=== PATIENT | male | born 1955 | race African-American/Black ===

== ENCOUNTER 2020-05-23 13:40 | Observation (INO) | payer MEDICARE, OTHER ==
[2020-05-18 13:25] LABS: BASOPHILS % 0.1 % (0.0-1.0); EOSINOPHILS % 0.2 % (0.0-6.0); HEMATOCRIT 42.2 % (38.2-49.6); HEMOGLOBIN 13.4 g/dL (14.0-18.0); LYMPHOCYTES # (AUTO) 1.1 (1.0-3.2); LYMPHOCYTES % 12.9 % (18.0-39.1); MEAN CORPUSCULAR HEMOGLOBIN 30.8 pg (28-32); MEAN CORPUSCULAR HGB CONC 31.8 g/dL (31-35); MONOCYTES # (AUTO) 0.2 (0.2-0.8); MONOCYTES % 2.2 % (4.4-11.3); NEUTROPHILS # (AUTO) 7.3 (2.1-6.9); NEUTROPHILS % 83.6 % (38.7-80.0); PLATELET COUNT 233 x10e3/uL (140-360); RED BLOOD COUNT 4.35 x10e6/uL (4.3-5.7); RED CELL DISTRIBUTION WIDTH 14.8 % (11.7-14.4)
[2020-05-18 13:49] LABS: ALBUMIN/GLOBULIN RATIO 1.3 (0.8-2.0); ANION GAP 17.3 mmol/L (8-16); CALCIUM 9.6 mg/dL (8.4-10.2); CREATININE, SERUM 1.44 mg/dL (0.72-1.25); POTASSIUM 4.3 mmol/L (3.5-5.1)
--- NOTE | 2020-05-22 09:25 | NUR ---
Followed up with Lab regarding pending COVID test results. physics technician stated results for COVID test are still pending. physics technician stated results will most likely be back "later on today or tomorrow".
[2020-05-23] VITALS (27 sets, daily range): BP systolic 115–185; BP diastolic 61–110
[~2020-05-23] VITALS: Ht 157.5 cm; Wt 53.5 kg
[~2020-05-23 13:40] MED LIST: ASPIR 8181 MG PO; ATORVASTATIN CA20 MG PO; CARVEDILOL12.5 MG PO; CLOPIDOGREL75 MG PO; DIPHENHYDRAMINE25 M1 PO; FAMOTIDINE20 MG PO; FINASTERIDE5 MG PO; FLOMAX0.4 MG PO; GABAPENTIN300 MG PO; IPRAT-ALBUT 0.5-3 ML NEB; MYRBETRIQ50 MG PO; PREDNISONE20 MG PO; PROVENTIL HFA6.7 GM INH; TRELEGY ELLIPT1 EACH INH; ULTRAM50 MG PO
[2020-05-23] MEDS ORDERED: METHYLPREDNISOLONE SOD SUCC 125 MG/2ML VIAL ONE (13:56)
[2020-05-23] MEDS ORDERED: FAMOTIDINE 20 MG/2 ML VIAL IV ONE (13:57)
[2020-05-23] MEDS ORDERED: DIPHENHYDRAMINE HCL 25 MG CAP ONE (13:57)
[2020-05-23] MEDS ORDERED: ALPRAZOLAM 0.5 MG TAB ONE (13:57)
[2020-05-23] MEDS ORDERED: MIDAZOLAM HCL 2 MG/2 ML VIAL ONE ×2 (14:18→14:52)
[2020-05-23] MEDS ORDERED: FENTANYL CITRATE/PF 100MCG/2 ML INJ ONE (14:19)
[2020-05-23] MEDS ORDERED: LIDOCAINE HCL 2% LOCAL 20 ML VIAL ONE (14:19)
[2020-05-23] MEDS ORDERED: SODIUM CHLORIDE 0.9% 1000ML 1,000 ML ONE (14:19)
[2020-05-23] MEDS ORDERED: HEPARIN SOD/SOD CHLORIDE 2,000 ML ONE (14:19)
[2020-05-23] MEDS ORDERED: VERAPAMIL HCL 2.5 MG/ML 2 ML VIAL ONE (14:36)
[2020-05-23] MEDS ORDERED: PRASUGREL 10 MG TAB ONE (15:01)
[2020-05-23] MEDS ORDERED: BIVALRIUDIN 250 MG/VIAL VIAL IV ONE (15:01)
[2020-05-23] MEDS ORDERED: SODIUM CHLORIDE 0.9% 50ML 50 ML ONE (15:02)
[2020-05-23] MEDS ORDERED: ASPIRIN 325 MG TAB ONE (15:02)
--- NOTE | 2020-05-23 15:15 | NUR ---
Pt to ACU 8 for recovery, resting with eyes closed, and on bedside monitor. bed low and locked with siderails up x2. call light within reach. VS wnl.
--- NOTE | 2020-05-23 16:30 | NUR ---
pt moved to CCL 10 for further recovery. no changes or distress observed. vs wnl. groin w/o complications.
--- NOTE | 2020-05-23 16:45 | NUR ---
report handoff to Amelie DAILEY. Review of pending sheath pull and VS trend. Transfer of care.
--- NOTE | 2020-05-23 18:10 | NUR ---
Dr Benavides aware of trending BP and pt c/o of distention to void. IN/Out cath order received. - 800clear yellow urine evacuated.
--- NOTE | 2020-05-23 18:20 | NUR ---
Hydralazine 20mg given slow IVP for BP > 180 per orders prior to sheath pull.
--- NOTE | 2020-05-23 18:30 | NUR ---
Report received from Amelie Gilbert RN. pt in CCL 10, Alert oriented and appropriate, PERRLA, respirations even and unlabored to room air. Assisted with in and out pickard. Sheath in right groin w/o s/s of complication/hematoma. Skin warm and dry integrity appears intact in general. IV left forearm presents healthy w/o s/s of infiltration or complaint. NS 0.9% at 100ml/hr per [place] pump. Abdomen soft and supple. pt offered toileting, denies need. Personal affects with patient. Family notified of DC time of 10pm. Pt verbalizes understanding of POC. bed low and locked, side rails up x2 and call light at side. -cgf
[2020-05-23] MEDS ORDERED: HYDRALAZINE HCL 20 MG/ML VIAL ONE (18:46)
--- NOTE | 2020-05-23 18:50 | NUR ---
BP within paramater for sheath pull. Sheath liberated from right groin by Abraham Zhang RtR. Manual compressor applied. Pulses present. Pt understanding bedrest and right groin guarding. VS trend followed. Pt w/o c/o or need.
--- NOTE | 2020-05-23 19:20 | NUR ---
Sheath pull /pressure complete. Dressing applied. Right leg warm, no s/s of gross issue or need. Pulse present. Dressing CDI/ Pt aware of bedrest. Daughter called with permission and informed anticipated DC time of 945pm. call light at side.
--- NOTE | 2020-05-23 20:00 | NUR ---
evening meal provided. pt HOB elevated to 15o. tolerating PO w/o distress. groin unchanged. POC reinforced. BP trend WNL
--- NOTE | 2020-05-23 21:00 | NUR ---
Dr Benavides made aware of above assessment. Orders received.
--- NOTE | 2020-05-23 21:00 | NUR ---
pt c/o of heaviness of right foot and coolness. right leg and groin feels consistently warm. femoral pulse palpable. Popliteal pulse palpable. negative pain through calf. right foot with poor blanching of toe pads and unable to doppler pulses. p/t beginning to c/o progressive pain up the leg. stating " my foot feels , and the pain is coming up my leg." Dr Kennedy gonzalez.
--- NOTE | 2020-05-23 21:29 | NUR ---
Report called to Cynthia DAILEY. Reviewed procedural events and current assessment change. Brief history and POC reviewed. Patient family has already been informed. pedal pulses absent, palpable r poltieal and rfemoral. pt transported on telemetry w/ belongings
--- NOTE | 2020-05-23 21:55 | NUR ---
RECEIVED THE PATIENT FROM HEART CATH IN A STRETCHER.ADMISSION ASSESSMENT DONE.AAOX4.BED REST TILL AM.RIGHT POPLITEAL PULSE NOTED.BUT NO RIGHT PEDAL PULSE NOTED.UPON ASSESSMENT RIGHT LEG FEEL COLD.IV TO LEFT FOR ARM IS PATENT.ORIENTED TO THE UNIT.BED LOCKED AND IN LOWEST POSITION.PHONE AND CALL LIGHT WITHIN REACH.INSTRUCTED TO CALL FOR ASSISTANCE NEEDED.ENTER ALL ORDERS AND IMPLEMENTED.KEEP MONITOR THE PATIENT.
--- NOTE | 2020-05-23 22:41 | Operative Report ---
DATE OF PROCEDURE: 05/23/2020 SURGEON: Nathan Benavides MD CARDIAC TECHNOLOGY SALES CONSULTANT PROCEDURE NOTE INDICATION: Coronary artery disease, angina with abnormal stress test. PROCEDURES PERFORMED: 1. Conscious sedation, 65 minutes. 2. Left heart catheterization, selective coronary angiography. 3. PTCA and stent placed in the proximal right coronary artery. 4. Selective cannulation of one venous bypass conduit. 5. Manual removal of the sheath from the right groin. COMPLICATIONS: None. RECOMMENDATIONS: Dual antiplatelet therapy for life. DESCRIPTION OF PROCEDURE: Access was obtained in the right femoral artery graft, 6-Emirati sheath was placed. 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 Therefore, the sheath was removed under manual pressure at the end of the case. Left main, mild disease. Left anterior descending artery is completely occluded. His ramus intermedius, circumflex, and obtuse marginal branches had mild disease. Right coronary artery proximal stent had 80% in-stent restenosis. Saphenous vein bypass graft to left anterior descending artery at 50% mid stenosis. Left internal mammary artery was then used. A decision was made to intervene on the right coronary artery. The patient received intravenous Angiomax, oral aspirin, prasugrel for anticoagulation. The right coronary artery was cannulated using a 3DRC 6-Emirati guiding catheter. A short Runthrough wire was advanced for support. Predilatation with 2 mm balloon following, which a single 2.75 x 16 mm [employer] Synergy stent was deployed at 16 atmospheres. Post stent with a 3.25 mm balloon at 14-20 atmospheres with excellent end result, less than 10% residual stenosis, TAL-3 flow. No complications. Sheath was removed under manual pressure. The patient discharged home same day. Nathan Benavides MD KSJack/MODL /[id number]
[2020-05-23] MEDS ORDERED: HYDRALAZINE HCL 20 MG/ML VIAL IV PRN (22:45)
[2020-05-23] MEDS ORDERED: ALBUTEROL SULFATE HFA 8GM INHALATION AEROSOL INH PRN (23:45)
[2020-05-23] MEDS ORDERED: ENOXAPARIN SOD INJ 40 MG/0.4 ML SYR SC ONE (23:45)
[2020-05-24] MEDS: MORPHINE SULFATE 2 MG/ML SYR 1ML IV PRN ×2 (00:03→06:40)
[2020-05-24] MEDS: SODIUM CHLORIDE 0.9% 1000ML 1,000 ML IV SCH ×2 (00:03→08:45)
--- NOTE | 2020-05-24 00:34 | NUR ---
NOTIFIED RESPIRATORY ABOUT THE NEED OF BREATHING TREATMENT.
[2020-05-24] MEDS: ALBUTEROL/IPRATROPIUM 3 ML NEB NEB SCH ×2 (00:40→08:10)
--- NOTE | 2020-05-24 04:30 | NUR ---
Right posterior tibial pulse noted.dressing to right groin is dry .
[2020-05-24 04:35] VITALS: BP 141/83
--- NOTE | 2020-05-24 06:52 | NUR ---
RECEIVED BEDSIDE SHIFT REPORT FROM OFF GOING NURSE. PATIENT IS RESTING IN BED. NO ACUTE DISTRESS NOTED. CALL LIGHT WITHIN REACH. BED IN THE LOWEST POSITION. BED ALARM ON.
--- NOTE | 2020-05-24 07:00 | NUR ---
Bed side shift report given to oncoming Rn.stable condition.
[2020-05-24 07:47] VITALS: BP 166/84
[2020-05-24] MEDS ORDERED: CARVEDILOL 12.5 MG TAB PO SCH (09:00)
[2020-05-24] MEDS ORDERED: ASPIRIN 81 MG CHEW TAB PO SCH (09:00)
[2020-05-24] MEDS ORDERED: TAMSULOSIN HCL 0.4 MG CAP PO SCH ×2 (09:00→21:00)
[2020-05-24] MEDS ORDERED: FINASTERIDE 5 MG TAB PO SCH (09:00)
[2020-05-24] MEDS ORDERED: DIPHENHYDRAMINE HCL 25 MG CAP PO SCH (09:00)
[2020-05-24] MEDS ORDERED: ALBUTEROL/IPRATROPIUM 3 ML NEB NEB SCH (09:00)
[2020-05-24] MEDS ORDERED: GABAPENTIN 300 MG CAP PO SCH (09:00)
[2020-05-24] MEDS ORDERED: CLOPIDOGREL BISULFATE 75 MG TAB PO SCH (09:00)
[2020-05-24] MEDS ORDERED: PREDNISONE 20 MG TAB PO SCH (09:00)
[2020-05-24] MEDS ORDERED: FAMOTIDINE 20 MG TAB PO SCH (09:00)
--- NOTE | 2020-05-24 10:50 | NUR ---
DR. Yakov QUINTERO IN TO SEE PATIENT, NOTIFIED THAT NEEDED DOPPLER TO FIND POST. TIBIALIS PULSE.
--- NOTE | 2020-05-24 12:00 | NUR ---
RECEIVED DISCHARGE ORDER FROM DR. Yakov QUINTERO, PATIENT IS IN STABLE CONDITION. IV LINE TO LEFT FOREARM DISCONTINUED WITH TIP INTACT, PRESSURE APPLIED TO SITE, NO BLEEDING NOTED. DISCHARGE TEACHING PROVIDED TO PATIENT, HE VERBALIZED UNDERSTANDING. DISCHARGE FOLDER ON HAND, NO NEW PRESCRIPTIONS, ALL PERSONAL ITEMS ON HAND. PATIENT ACCOMPANIED TO PRIVATE AUTO VIA WHEELCHAIR BY STAFF.
[2020-05-24] MEDS ORDERED: ATORVASTATIN 20 MG TAB PO SCH (21:00)
--- OUTSIDE RECORDS SUMMARY | 2020-06-23 04:00 | XMS REPORT | Encounter Summary ---
Author Organization Unknown Address [address] [place] [address] Phone [phone] Care Team Providers Care Cupola Melting Supervisor Name Role Phone Dr. Surendra Chambers 3 [phone] Surendra Chambers Jr, MD 3 [phone] Nida Long MD 114 [phone] Nicholas Bradshaw MD (Cardiothoracic & Vascular Surgery) 122 [phone] Reason for Visit chest pain; cough Instructions 1. Chronic obstructive lung disease ipratropium-albuterol 0.5 mg-3 mg(2.5 mg base)/3 mL nebulization soln nebulizer w/mouthpiece adult 2. Upper respiratory infection XR, chest, 2 view 3. Pleuritic pain 4. Seasonal allergy triamcinolone acetonide 40 mg/mL suspe nsion for injection dexamethasone 4 mg/mL injection soluti on 5. Nicotine dependence stopping smoking: care instructions advised to quit smoking deciding about using medicines to quit smoking 6. Hip pain XR, hip, unilateral, 2 or 3 view Discussion Note: None recorded. Plan of Care Reminders Provider Appointments Est Patient 03/15/2019 10:00AM Surendra cornejo Jr, MD Est Patient 03/29/2019 9:00AM Surendra le Jr, MD Lab None recorded. Referral None recorded. Procedures None recorded. Surgeries None recorded. Imaging XR, Chest, 2 View 03/02/2019 [facility] Hobby XR, Hip, Unilateral, 2 or 3 View 03/02/2019 Medications Name Start Date aspirin 81 mg chewable tablet Chew 1 tablet every day by oral route for 90 days. atorvastatin calcium 20 mg tabs bisacodyl 5 mg tablet,delayed release Take 1 tablet every day by oral route. Breo Ellipta 100 mcg-25 mcg/dose powder for inhalation Inhale 1 inhalation every day by inhalation route. carvedilol 12.5 mg tablet TAKE ONE TABLET BY MOUTH TWICE A DAY cetirizine 10 mg tablet TAKE ONE TABLET BY MOUTH DAILY NEEDED FOR ALLERGIES clopidogrel 75 mg tablet TAKE ONE TABLET BY MOUTH DAILY famotidine 40 mg tablet TAKE ONE TABLET BY MOUTH DAILY finasteride 5 mg tablet TAKE 1 TABLET BY MOUTH DAILY gabapentin 300 mg capsule Take 2 capsules 3 times a day by oral route for 90 days. ipratropium-albuterol 0.5 mg-3 mg(2.5 mg base)/3 mL nebulization soln Inhale 3 mL 4 times a day by nebulization route for 90 days. Lipitor 20 mg tablet Take 1 tablet every day by oral route. Myrbetriq 50 mg tablet,extended release Take 1 tablet every day by oral route for 90 days. ProAir HFA 90 mcg/actuation aerosol inha ler Inhale 2 puffs every 4 hours by inhalation route for 90 days. tamsulosin 0.4 mg capsule Take 1 capsule every day by oral route for 90 days. Medications Administered None recorded. Vitals Height Weight BMI Blood Pressure 5 ft 2 in 116 lbs 21.2 kg/m2 130/76 mm[Hg] Lab Results None recorded. Allergies Code Code System Name Reaction Severity Status Onset Blue Dye Itching Moderate to Severe Active 110169 RxNorm Demerol Active 5933 RxNorm Iodine Active Problems Name Status Onset Date Source Coronary Arteriosclerosis Active 09/11/2017 Peripheral Vascular Disease Active 09/11/2017 Chronic Obstructive Lung Disease Active 09/11/2017 Chronic Kidney Disease Stage 3 Active 09/11/2017 Benign Prostatic Hypertrophy without Outflow Obstruction Active 09/11/2017 Cigarette Smoker Active 09/11/2017 Amputated above Knee Active 09/11/2017 Gastroesophageal Reflux Disease Active 09/18/2017 Benign Hypertensive Heart Disease and Chronic Renal Disease Acti ve 12/22/2017 Femoral Artery Occlusion Active 02/23/2018 History of Coronary Artery Bypass Grafting Active 02/23 Long-term Current Use of Anticoagulant Active 8 Anemia Active 06/29/2018 Left Ventricular Hypertrophy Active 07/30/2018 Atherosclerosis of Aorta Active Externa l Intermittent Claudication Active 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 [address] [place] [address] (Work Place) 03/02/2019 XR, Hip, Unilateral, 2 or 3 View Informa tion not available Vaccine List Vaccine Type Influenza, injectable, MDCK, quadrivalen t 10/10/20170.5 mL influenza, injectable, quadrivalent 08/22/2016 influenza, injectable, quadrivalent, pre servative free 09/28/2018 pneumococcal polysaccharide PPV23 08/10/2012 Social History Smoking Status Light Tobacco Smoker (1/4 PPD) Past Encounters 03/02/2019 Chronic Obstructive Lung Disease; Upper Respiratory Infection; Pleuritic Pain; Seasonal Allergy; Nicotine Dependence; Hip Pain Surendra Chambers Jr, MD: [address] [facility] [facility] [address], [place] [address], Ph. History of Present Illness Upper Respiratory Symptoms Reported By: Patient Chest Pain Reported By: Patient URI - AMS Reported By: Patient Upper Respiratory Symptoms: Onset/Timing: gradual. Dur ation: constant. Location: head, throat. Quality: no sore throat, nasal congestion/discharge, dry cough. Severity: moderate. Context: no sick contacts, no foreign travel. Associated Symptoms: no fever, no chills, no shortness of breath, no wheezing, no significant weight loss, no diarrhea, no nausea Review of Systems Comprehensive General Adult ROS Reported By: Patient Constitutional: Constitutional: no fever, no night sweats, no significant weight loss Eyes: Eyes: no vision change ENMT: Ears: no difficulty hearing, no ear pain. Mouth/Throat: sore throat Cardiovascular: Cardiovascular: no chest young n, no shortness of breath when walking Respiratory: Respiratory: no wheezing, no shortness of breath, cough Gastrointestinal: Gastrointestinal: no nausea, no diarrhea Musculoskeletal: Musculoskeletal: no arthralg ias/joint pain Integumentary: Skin: no rashes Endocrine: Endocrine: fatigue Allergic/Immunologic: Allergy/Immunologic: runny n ose Physical Exam Upper Respiratory Infection Exam Comprehensive, Upper Respiratory Infection Exam, Cardiology Exam Reported By: Patient Constitutional: General Appearance in no acu te distress Head: Sinuses no tenderness Ears: Right External auditory renetta l normal appearance, no erythema. Left External auditory canal normal appearance, no erythema. Right Tympanic membrane dull, bulging. Left Tympanic membrane: dull, bulging Nose: Nasal Skin: no lesion, no la cerations. Nasal Mucosa normal, pink and moist Oral Cavity/Mouth: Oral Mucosa: normal, moist, no lesions. Posterior pharynx: lymphoid hyperplasia (cobblestoning) Lymph Nodes: Cervical no palpable lymph n ode enlargement Neck: Neck symmetrical, trachea mi dline Lungs: Respiratory effort unlabored . Auscultation breath sounds normal, no wheezing, no rales / crackles, no rhonchi Cardiovascular System: Auscultation regular rate an d rhythm, no murmur, no rubs
--- OUTSIDE RECORDS SUMMARY | 2020-06-23 04:00 | XMS REPORT | Encounter Summary ---
Author Organization Unknown Address [address] [place] [address] Phone [phone] Care Team Providers Care Liquor Blender Name Role Phone Dr. Surendra Chambers 3 [phone] Surendra Chambers Jr, MD 3 [phone] Nida Long MD 114 [phone] Nicholas Bradshaw MD (Cardiothoracic & Vascular Surgery) 122 [phone] Reason for Visit hypertension; COPD Follow-up Instructions 1. Benign hypertensive heart disease and chronic renal disease carvedilol 12.5 mg tablet atorvastatin 20 mg tablet CMP, serum or plasma CBC w/ auto diff lipid panel, serum valsartan 80 mg tablet 2. Coronary arteriosclerosis clopidogrel 75 mg tablet 3. Chronic kidney disease stage 3 4. Chronic obstructive lung disease ipratropium-albuterol 0.5 mg-3 mg(2.5 mg base)/3 mL nebulization soln ProAir HFA 90 mcg/actuation aerosol in haler doxycycline hyclate 100 mg tablet prednisone 20 mg tablet COPD Education ([facility]) nebulizer w/mouthpiece adult Breo Ellipta 100 mcg-25 mcg/dose powde r for inhalation 5. Peripheral vascular disease gabapentin 300 mg capsule 6. Benign prostatic hypertrophy without outflow obstruction finasteride 5 mg tablet Myrbetriq 50 mg tablet,extended releas e tamsulosin 0.4 mg capsule 7. Gastroesophageal reflux disease famotidine 40 mg tablet 8. Seasonal allergic rhinitis cetirizine 10 mg tablet 9. Screening for malignant neoplasm of p rostate PSA, serum or plasma 10. Cigarette smoker advised to quit smoking stopping smoking: care instructions deciding about using medicines to quit smoking 11. Inflammation of sacroiliac joint tramadol 50 mg tablet XR, lumbosacral spine, 2 or 3 view Discussion Note: None recorded. Plan of Care Reminders Provider Appointments None recorded. Lab CMP, Serum or Plasma 06/14/2019 [facility] Laboratory CBC W/ Auto Diff 06/14/2019 [facility] Laboratory Lipid Panel, Serum 06/14/2019 [facility] Laboratory PSA, Serum or Plasma 06/14/2019 [facility] Laboratory Referral None recorded. Procedures None recorded. Surgeries None recorded. Imaging XR, Lumbosacral Spine, 2 or 3 View 06/14/2019 [facility] Radiology Medications Name Start Date aspirin 81 mg chewable tablet Chew 1 tablet every day by oral route for 90 days. atorvastatin 20 mg tablet Take 1 tablet every day by oral route. bisacodyl 5 mg tablet,delayed release Take 1 tablet every day by oral route. Breo Ellipta 100 mcg-25 mcg/dose powder for inhalation Inhale 1 inhalation every day by inhalation route for 90 days. carvedilol 12.5 mg tablet Take 1 tablet twice a day by oral route. cetirizine 10 mg tablet Take 1 tablet every day by oral route. clopidogrel 75 mg tablet Take 1 tablet every day by oral route. doxycycline hyclate 100 mg tablet Take 1 tablet twice a day by oral route for 10 days. famotidine 40 mg tablet Take 1 tablet every day by oral route. finasteride 5 mg tablet Take 1 tablet every day by oral route. gabapentin 300 mg capsule Take 2 capsules 3 times a day by oral route for 90 days. ipratropium-albuterol 0.5 mg-3 mg(2.5 mg base)/3 mL nebulization soln Inhale 3 mL 4 times a day by nebulization route for 90 days. Myrbetriq 50 mg tablet,extended release Take 1 tablet every day by oral route. prednisone 20 mg tablet Take 2 tablets every day by oral route in the morning for 10 days. ProAir HFA 90 mcg/actuation aerosol inha ler Inhale 2 puffs every 4 hours by inhalation route for 90 days. tamsulosin 0.4 mg capsule Take 1 capsule every day by oral route. tramadol 50 mg tablet Take 1 tablet twice a day by oral route as needed. valsartan 80 mg tablet Take 1 tablet every day by oral route for 90 days. Medications Administered None recorded. Vitals Height Weight BMI Blood Pressure 5 ft 2 in 111.2 lbs 20.3 kg/m2 (1) 156/90 mm[H g] (2) 152/88 mm[Hg] Lab Results None recorded. 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 al 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 External Procedures Date Name Performed by Amputation Information not avai lable Colonoscopy Information not avai lable 06/14/2019 XR, Lumbosacral Spine, 2 or 3 View [facility] [address] [place] [address] (Work Place) Vaccine List Vaccine Type Influenza, injectable, MDCK, quadrivalen t 10/10/20170.5 mL influenza, injectable, quadrivalent 08/22/2016 influenza, injectable, quadrivalent, pre servative free 09/28/2018 pneumococcal polysaccharide PPV23 08/10/2012 Social History Smoking Status Light Tobacco Smoker (1/4 PPD) Past Encounters 06/14/2019 Benign Hypertensive Heart Disease and Chronic Renal Disease; Coronary Arteriosclerosis; Chronic Kidney Disease Stage 3; Chronic Obstructive Lung Disease; Peripheral Vascular Disease; Benign Prostatic Hypertrophy without Outflow Obstruction; Gastroesophageal Reflux Disease; Seasonal Allergic Rhinitis; Screening for Malignant Neoplasm of Prostate; Cigarette Smoker; Inflammation of Sacroiliac Joint Surendra Chambers Jr, MD: [address] [facility], [address], [place] [address], Ph. History of Present Illness Hypertension Reported By: Patient HPI: Severity: mild. Onset/Timing : gradual onset. Alleviating Factors: relieved with rest, medication. Self Care: not under emotional stress, blood pressure goal: 130/80. Associated Symptoms: no shortness of breath, no fatigue, no decline in exercise capacity COPD Follow-up Reported By: Patient HPI:: COPD Treatment: COPD Assessm ent Test Score: 34, Acute hospital admissions for COPD in last year: 0, COPD exacerbations in last year: 2+, GOLD Group B: (CAT e 10, 0-1 Exacerbations, 0 Admissions) 1st long-acting beta agonist OR long-acting muscarinic antagonist, 2nd long-acting beta agonist / long-acting muscarinic antagonist Hyperlipidemia Reported By: Patient HPI: Type of hyperlipidemia: comb ined, hypercholesterolemia. Duration: chronic. Current Therapy: currently taking:. Complications: no coronary artery disease Review of Systems Comprehensive General Adult ROS Reported By: Patient Constitutional: Constitutional: no significa nt weight gain, no significant weight loss Cardiovascular: Cardiovascular: no chest young n, no shortness of breath when walking Respiratory: Respiratory: no cough, no wh eezing, no shortness of breath Endocrine: Endocrine: no fatigue Physical Exam General Adult Exam (male), C ardiology Exam Reported By: Patient Constitutional: General Appearance: well-nou rished, well-developed, appears stated age. Level of Distress: NAD Lungs: Auscultation: good air movem ent, CTA except as noted, no wheezing, no rales/crackles, no rhonchi Cardiovascular: Heart Auscultation: RRR, nor mal S1, no rubs, no gallops, physiologically split S2, no click. Pulses including femoral / pedal: full and equal in all extremities except if noted. Systolic Murmur: not heard. Diastolic Murmur: not heard Musculoskeletal:: Extremities: no cyanosis, no edema, no peripheral signs of emboli Skin: Inspection and palpation: wa rm and dry Back: Thoracolumbar Appearance: no chest wall tenderness
--- OUTSIDE RECORDS SUMMARY | 2020-06-23 04:00 | XMS REPORT | Encounter Summary ---
Author Organization Unknown Address [address] [place] [address] Phone [phone] Care Team Providers Care Mathematics Faculty Member Name Role Phone Dr. Surendra Chambers 3 [phone] Surendra Chambers Jr, MD 3 [phone] Nida Long MD 114 [phone] Nicholas Bradshaw MD (Cardiothoracic & Vascular Surgery) 122 [phone] Reason for Visit chest pain; cough Instructions [...] deciding about using medicines to quit smoking Discussion Note: None recorded. Plan of Care Reminders Provider Appointments Est Patient 03/29/2019 9:00AM Surendra le Jr, MD Lab None recorded. Referral None recorded. Procedures None recorded. Surgeries None recorded. Imaging XR, Chest, 2 View 03/02/2019 [facility] ([facility] Medications Name Start Date aspirin 81 mg [...] Blue Dye Itching Moderate to Severe Active 255235 RxNorm Demerol Active 5933 RxNorm Iodine Active [...] Aorta Active Externa l Intermittent Claudication Active Certified Medical Dosimetrist al 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 External No Abnormality Detected - Examination Result Active External Procedures Date Name Performed by 09/02/2017 Colonoscopy Information not avai lable Amputation Information not avai lable 03/02/2019 XR, Chest, [address] [facility] Pract ice ([facility]) [facility] [address] [place] [address] (Work Place) Vaccine List Vaccine Type Influenza, injectable, MDCK, quadrivalen t 10/10/20170.5 mL influenza, injectable, quadrivalent 08/22/2016 influenza, injectable, quadrivalent, pre servative free 09/28/2018 pneumococcal polysaccharide PPV23 08/10/2012 Social History Smoking Status Light Tobacco Smoker (/ PPD) Past Encounters 03/02/2019 Chronic Obstructive Lung Disease; Upper Respiratory Infection; Pleuritic Pain; Seasonal Allergy; Nicotine Dependence Surendra Chambers Jr, MD: [address] [facility], [facility] [address], [place] [address], Ph. History of Present Illness Upper Respiratory [...]
--- OUTSIDE RECORDS SUMMARY | 2020-06-23 04:00 | XMS REPORT | Encounter Summary ---
Author Organization Unknown Address [address] [place] [id number] Phone [phone] Care Team Providers Care Flight Director Name Role Phone Dr. Surendra Chambers 3 [phone] Surendra Chambers Jr, MD 3 [phone] Nida Long MD 114 [phone] Nicholas Bradshaw MD (Cardiothoracic & Vascular Surgery) 122 [phone] Reason for Visit Quality BMI DEPRESSION FALL; AWV Annual Wellness Visit Male ([facility]) Instructions 1. Adult health examination 2. Advance directive discussed with jorge ent advance care planning: care instructio ns 3. Depression screening 4. At risk for falls preventing falls: care instructions 5. Body mass index 20-24 - normal 6. Immunization refused 7. Chronic obstructive lung disease spirometry 8. Peripheral vascular disease 9. History of amputation of lower limb a bert knee 10. Benign hypertensive heart disease an d chronic renal disease Lipitor 20 mg tablet 11. Chronic kidney disease stage 3 12. Lower urinary tract symptoms due to benign prostatic hypertrophy Discussion Note: None recorded. Plan of Care Patient Instructions It was good to see you in the office tokenyetta ellis for your Medicare Annual Wellness Visit. You have been provided some information on healthy nutrition, including a diet rich in fruits and vegetables, minimizing simple carbohydrates, salt, and saturated fats. I want to encourage regular cardiovascular exercise such as walking at least 30 minutes daily, 5 times per week. Please remember to schedule any preventive health measures that we talked about today. You have also been provided education on fall prevention and community- based lifestyle interventions to help reduce health risks and promote healthy living in your Annual Wellness folder. Screening Recommendations 1. Vaccines Pneumococcal: discussed today and information sent with patient in their Annual Wellness health folder Influenza: discussed today and information sent with patient in their Annual Wellness health folder Shingles: Recommended today Tetanus: discussed today and information sent with patient in their Annual Wellness health folder 2. Prostate Screening: Ordered 3. Colorectal cancer Screening Colonoscopy: Recommended today Fecal Occult Blood: discussed today and information sent with patient in their Annual Wellness health folder 4. Bone Mass Measurement: No screening n ecessary 5. Eye Exam Screening: discussed today 6. Cholesterol Screening: discussed toda y 7. Diabetes Screening: discussed today Reminders Provider Appointments None recorded. Lab None recorded. Referral None recorded. Procedures None recorded. Surgeries None recorded. Imaging None recorded. Medications Name Start Date aspirin 81 mg chewable tablet Chew 1 tablet every day by oral route for 90 days. bisacodyl 5 mg tablet,delayed release Take 1 tablet every day by oral route. Breo Ellipta 100 mcg-25 mcg/dose powder for inhalation Inhale 1 inhalation every day by inhalation route. breo ellipta 100-25 mcg/inh aepb carvedilol 12.5 mg tablet TAKE ONE TABLET BY MOUTH TWICE A DAY cetirizine 10 mg tablet TAKE ONE TABLET BY MOUTH DAILY NEEDED FOR ALLERGIES clopidogrel 75 mg tablet TAKE ONE TABLET BY MOUTH DAILY famotidine 40 mg tablet TAKE ONE TABLET BY MOUTH DAILY finasteride 5 mg tablet TAKE ONE TABLET BY MOUTH DAILY gabapentin 300 mg capsule TAKE TWO CAPSULES BY MOUTH THREE TIMES A DAY Lipitor 20 mg tablet Take 1 tablet every day by oral route. Myrbetriq 50 mg tablet,extended release Take 1 tablet every day by oral route for 90 days. proair hfa 108 (90 base) mcg/act aers ProAir HFA 90 mcg/actuation aerosol inha ler Inhale 2 puffs every 4 hours by inhalation route for 90 days. tamsulosin 0.4 mg capsule Take 1 capsule every day by oral route for 90 days. Medications Administered None recorded. Vitals Height Weight BMI Blood Pressure 5 ft 2 in 115 lbs 21 kg/m2 Lab Results None recorded. Allergies Code Code System Name Reaction Severity Status Onset Blue Dye Itching Moderate to Severe Active 044339 RxNorm Demerol Active 5933 RxNorm Iodine Active [...] Aorta Active Externa l Intermittent Claudication Active Humidifier Maintenance Worker al 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 External No Abnormality Detected - Examination Result Active External Procedures Date Name Performed by 09/02/2017 Colonoscopy Information not avai lable Amputation Information not avai lable Vaccine List Vaccine Type Influenza, injectable, MDCK, quadrivalen t 10/10/20170.5 mL influenza, injectable, quadrivalent 08/22/2016 influenza, injectable, quadrivalent, pre servative free 09/28/2018 pneumococcal polysaccharide PPV23 08/10/2012 Social History Smoking Status Light Tobacco Smoker (11/27 PPD) Past Encounters 12/28/2018 Adult Health Examination; Advance Directive Discussed with Patient; Depression Screening; At Risk for Falls; Body Mass Index 20-24 - Normal; Immunization Refused; Chronic Obstructive Lung Disease; Peripheral Vascular Disease; History of Amputation of Lower Limb above Knee; Benign Hypertensive Heart Disease and Chronic Renal Disease; Chronic Kidney Disease Stage 3; Lower Urinary Tract Symptoms Due to Benign Prostatic Hypertrophy Surendra Chambers Jr, MD: [id number] [facility], [address], [place] [address], Ph. History of Present Illness Mini Cog Reported By: Patient Functional Ability: Personal/Social/ Draw a cloc k and write in the numbers in the correct place, and set the time to 10 minutes after 11 o'clock was completed correctly? Yes, 3 word recall: Your nurse or doctor will ask you to remember 3 words. In 5 minutes, they will ask you to repeat them. Patient recalled 2 words Note:Patient presents for routine medication refill . Currently without new complaint. Review of Systems Comprehensive General Adult ROS Reported By: Patient Constitutional: Constitutional: no significa nt weight gain, no significant weight loss Cardiovascular: Cardiovascular: no chest young n, no shortness of breath when walking Respiratory: Respiratory: no cough, no wh eezing, no shortness of breath Endocrine: Endocrine: no fatigue Physical Exam Cardiology Exam Reported By: Patient Constitutional: General Appearance: well-nou rished, well-developed, appears stated age. Level of Distress: comfortable Lungs: Respiratory Effort: unlabore d. Chest Exam: normal curvature, no thoracic deformity, no chest wall tenderness. Auscultation: clear, no wheezing, no rales, no rhonchi Cardiovascular: Rate And Rhythm: regular. He art Sounds: normal S1, physiologically split S2, no rub, no gallop, no click. Systolic Murmur: not heard. Diastolic Murmur: not heard. Extremities: no cyanosis, no edema, no peripheral signs of emboli Peripheral Pulses: Pulses: full and equal in al l extremities except if noted. Radial Pulse: normal Skin: Inspection and Palpation: wa rm and dry. Nails: no clubbing
--- OUTSIDE RECORDS SUMMARY | 2020-06-23 04:00 | XMS REPORT | Continuity of Care Document ---
Author Author [facility] t Organization [facility] Address [address] [place] [address] Phone Unavailable Care Team Providers Care Development Mgr Name Role Phone CHRISTIANE LEGGETT M.D. BENNIE PCP [phone] Rajendra eWber MD Attphys DODIE BRADSHAW M.D. Attphys Unavailable [facility] [address] BRADSHAW Attolivia Unavailable Payers Payer Name Policy Type Policy Number Effective Date Expiration Date S marla [employer] [facility] [id number] /11/2019-PresentHMO xxxxxxxxxxx 2019 00:00:00 [place] [facility]ist Problems Condition Name Condition Details Condition Category Status Onset Date Resolution Date Last Treatment Date Treating Clinician Comments Source Hypertensive heart and renal disease with (congestive) heart failure Hypertensive Heart and Renal Disease with (Congestive) Heart Failure Problem Active 2020-05-12 00:00:00 [facility] Left heart failure Left Heart Failure Problem Active 2020-05-12 00:00:0 0 [facility] History of arterial bypass of lower limb artery Histor y of Arterial Bypass of Lower Limb Artery Problem Active 2020-04-10 00:00:00 [facility] Femoral-popliteal artery bypass graft Femoral-popliteal Maryann ry Bypass Graft Problem Active 2020-04-10 00:00:00 [facility] Anemia in chronic kidney disease Anemia in Chronic Kidney Diseas e Problem Active 2020-01-08 00:00:00 Shah ge [facility] Practice 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 Problem Active 2019-11-05 00:00:00 [facility] Phantom limb syndrome with pain Phantom Limb Syndrome with Pain Pro blem Active 2019-10-07 00:00:00 [facility] Recurrent major depression Recurrent Major Depression Problem Active 2019-06-28 00:00:00 [facility] Lumbar spondylosis Lumbar Spondylosis Problem Active 2019-06-28 00:00:0 0 [facility] Scoliosis deformity of spine Scoliosis Deformity of Spine Problem Active 2019-06-28 00:00:00 [facility] Arthritis of facet joint of lumbar spine Arthritis of Facet Joint of Lumbar Spine Problem Active 2019-06-28 00:00:00 Daniel burk [facility] Left ventricular hypertrophy Left Ventricular Hypertrophy Problem Active 2018-07-30 00:00:00 [facility] Femoral artery occlusion Femoral Artery Occlusion Problem Acti ve 2018-02-23 00:00:00 [facility] History of coronary artery bypass grafting History of Coronary Artery Bypass Grafting Problem Active 2018-02-23 00:00:00 Sukhjinder banks [facility] Long-term current use of anticoagulant Long-term Current Use of Anticoagulant Problem Active 2018-02-23 00:00:00 [facility] Benign hypertensive heart disease and chronic renal di sease Benign Hypertensive Heart Disease and Chronic Renal Disease Problem Active 2017-12-22 00:00:0 0 [facility] Gastroesophageal reflux disease Gastroesophageal Reflux Disease Pro blem Active 2017-09-18 00:00:00 [facility] Coronary arteriosclerosis Coronary Arteriosclerosis Problem Ac tive 2017-09-11 00:00:00 [facility] Chronic obstructive lung disease Chronic Obstructive Lung Diseas e Problem Active 2017-09-11 00:00:00 Shah [facility] Practice Chronic kidney disease stage 3 Chronic Kidney Disease Stage 3 Probl em Active 2017-09-11 00:00:00 [facility] Benign prostatic hypertrophy without outflow obstructi on Benign Prostatic Hypertrophy without Outflow Obstruction Problem Active 2017-09-11 00:00:0 0 [facility] Cigarette smoker Cigarette Smoker Problem Active 2017-09-11 00:00:00 [facility] Amputated above knee Amputated above Knee Problem Active 00:00:00 [facility] Problem Condition Active [facility] History of Atherosclerosis History of Atherosclerosis Problem Resolved [facility] History of Coronary Artery Disease History of Coronary Artery Di sease Problem Resolved [facility] History of essential hypertension History of essential hypertens ion Problem Resolved [facility] History of hyperlipidemia History of hyperlipidemia Problem Resolved [facility] Normal routine physical examination Normal routine physical exam ination Problem Active [facility] Atherosclerosis of aorta Atherosclerosis of aorta Problem Active [facility] Intermittent claudication Intermittent claudication Problem Active [facility] Peripheral vascular disease Peripheral vascular disease Problem Active [facility] Above knee amputation status Above knee amputation status Problem Active [facility] Encounter for smoking cessation counseling Encounter f or smoking cessation counseling Problem Active [facility] Allergies, Adverse Reactions, Alerts Allergy Name Allergy Type Status Severity Reaction(s) Onset Date Inacti ve Date Treating Clinician Comments Source Meperidine Allergy to substance Active HIVES/ITCHING 2020-05-22 00:00:00 [facility] CONTRAST Allergy to substance Active HIVES 2020-05-22 00:00:00 [facility] meperidine HCl DA Active [place] 2017-01-28 00:00:00 [facility] iodine DA Active [place] 2017-01-28 00:00:00 [facility] Iodine SOLN drug allergy Active [facility] Carmina-N 100 TABS drug allergy Active [facility] BLUE DYE Allergy to substance Active Moderate to severe Itching [facility] Demerol Allergy to substance Active [facility] Iodine Allergy to substance Active [facility] Social History Social Habit Start Date Stop Date Quantity Comments Source Sex Assigned At Abdullahi castanonfranchesca Yarsanism Exposure to SARS-CoV-2 (event) Not sure [place] Y[employer] Smoking Status Start Date Stop Date Source Smoker. current status unknown [facility] Light Tobacco Smoker [facility] Medications Ordered Medication Name Filled Medication Name Start Date Stop Da te Current Medication? Ordering Clinician Indication Dosage Frequency Signature (SIG) Comments Components Source Hydrocodone-Acetaminophen 5-500 MG TABS Hydrocodone-Acetamin ophen 5-500 MG TABS 2011-03-22 00:00:00 Yes CRYSTAL HERNANDEZ M.D. TAKE 1 TO 2 TABLETS EVERY 4 TO 6 HOURS NEEDED FOR PAIN. [facility] Albuterol Sulfate (Proventil Hfa) 6.7 Gm HFA.AER.AD Al buterol Sulfate (Proventil Hfa) 6.7 Gm HFA.AER.AD Yes 1 A s Needed as needed for Shortness Of Breath [facility] Aspirin (Aspir 81) 81 Mg TABLET. Aspirin (Aspir 81) 81 Mg TABLET. Yes 81 Daily [facility] Atorvastatin Calcium Atorvastatin Calcium Yes 20 Bedtime [facility] Carvedilol Carvedilol Yes 12.5 Twice A Day [facility] Clopidogrel Bisulfate (Clopidogrel) 75 Mg TABLET Clopi dogrel Bisulfate (Clopidogrel) 75 Mg TABLET Yes 75 Daily [facility] Diphenhydramine Hcl Diphenhydramine Hcl Yes 25 Daily [facility] Famotidine Famotidine Yes 40 Daily [facility] Finasteride Finasteride Yes 5 Daily [facility] Fluticasone/Umeclidin/Vilanter (Trelegy Ellipta 100-62 .5-25) 1 Each BLST.W.DEV Fluticasone/Umeclidin/Vilanter (Trelegy Ellipta 100-62.5-25) 1 Each BLST.W.DEV Yes 1 Daily [facility] Gabapentin Gabapentin Yes 300 Twice A Day [facility] Ipratropium/Albuterol Sulfate (Iprat-Albut 0.5-3(2.5) Mg/3 Ml) 3 Ml AMPUL.NEB Ipratropium/Albuterol Sulfate (Iprat-Albut 0.5-3(2.5) Mg/3 Ml) 3 Ml AMPUL.NEB Yes 1 Four Times Daily [facility] Mirabegron (Myrbetriq) 50 Mg TAB.ER.24H Mirabegron (Myrbetri q) 50 Mg TAB.ER.24H Yes 50 Daily [facility] Prednisone Prednisone Yes [address] [facility] Tamsulosin Hcl (Flomax*) 0.4 Mg CAP Tamsulosin Hcl (Flomax*) 0.4 Mg C AP Yes .4 Daily [facility] Tramadol Hcl (Ultram) 50 Mg TABLET Tramadol Hcl (Ultram) 50 Mg TABLET Yes 50 As Needed as needed for Moderate Pain (4-6) [facility] Plavix 75 MG Oral Tablet Plavix 75 MG Oral Tablet Yes [facility] Lipitor 20 MG Oral Tablet Lipitor 20 MG Oral Tablet Yes [facility] Metoprolol Succinate ER 100 MG Oral Tablet Extended Re lease 24 Hour Metoprolol Succinate ER 100 MG Oral Tablet Extended Release 24 Hour Yes [facility] Lisinopril 10 MG Oral Tablet Lisinopril 10 MG Oral Tablet Yes [facility] Aspirin 325 MG Oral Tablet Aspirin 325 MG Oral Tablet Yes [facility] Nitrolingual 0.4 MG/SPRAY Translingual Solution Nitrol ingual 0.4 MG/SPRAY Translingual Solution Yes [facility] albuterol sulfate HFA 90 mcg/actuation a erosol inhaler Inhale 2 puffs every 4 hours by inhalation route as needed for 90 days. albuterol sulfate HFA 90 mcg/actuation aerosol inhaler Inhale 2 puffs every 4 hours by inhalation route as needed for 90 days. No a lbuterol sulfate HFA 90 mcg/actuation aerosol inhaler Inhale 2 puffs every 4 hours by inhalation route as needed for 90 days. [facility] ice atorvastatin 20 mg tablet Take 1 tablet every day by o ral route. atorvastatin 20 mg tablet Take 1 tablet every day by oral route. No atorvastatin 20 mg tablet Take 1 tablet every day by oral route. [facility] Jagruti Aspirin 81 MG - QD Jagruti Aspirin 81 MG - QD No Jagruti Aspirin 81 MG - QD [facility] ice Benadryl Allergy 25 mg tablet QD OTC Benadryl Allergy 25 mg tablet QD OTC No Benadryl Allergy 25 mg tablet QD OTC [facility] carvedilol 12.5 mg tablet Take 1 tablet twice a day by oral route. carvedilol 12.5 mg tablet Take 1 tablet twice a day by oral route. No carvedilol 12.5 mg tablet Take 1 tablet twice a day by oral route. [facility] cetirizine 10 mg tablet Take 1 tablet every day by ora l route. cetirizine 10 mg tablet Take 1 tablet every day by oral route. No 1 Q1D cetirizine 10 mg tablet Take 1 tablet every day by oral route. [facility] clopidogrel 75 mg tablet TAKE ONE TABLET BY MOUTH VIOLETA Y clopidogrel 75 mg tablet TAKE ONE TABLET BY MOUTH DAILY No clopidogrel 75 mg tablet TAKE ONE TABLET BY MOUTH DAILY [facility] ctice famotidine 40 mg tablet Take 1 tablet every day by ora l route. famotidine 40 mg tablet Take 1 tablet every day by oral route. No famotidine 40 mg tablet Take 1 tablet every day by oral route. [facility] finasteride 5 mg tablet Take 1 tablet every day by ora l route. finasteride 5 mg tablet Take 1 tablet every day by oral route. No finasteride 5 mg tablet Take 1 tablet every day by oral route. [facility] gabapentin 300 mg capsule TAKE TWO CAPSULES BY MOUTH T HREE TIMES A DAY gabapentin 300 mg capsule TAKE TWO CAPSULES BY MOUTH THREE TIMES A DAY No gabapentin 300 mg capsule TAKE TWO CAPSULES BY MOUTH THREE TIMES A DAY [facility] ipratropium 0.5 mg-albuterol 3 mg (2.5 m g base)/3 mL nebulization soln Inhale 3 mL every day by nebulization route for 1 day. ipratropium 0.5 mg-albuterol 3 mg (2.5 mg base)/3 mL nebulization soln Inhale 3 mL every day by nebulization route for 1 day. No ipratropium 0 .5 mg-albuterol 3 mg (2.5 mg base)/3 mL nebulization soln Inhale 3 mL every day by nebulization route for 1 day. [facility] Myrbetriq 50 mg tablet,extended release Take 1 tablet every day by oral route. Myrbetriq 50 mg tablet,extended release Take 1 tablet every day by oral route. No Myrbetriq 50 mg tablet,extended release Take 1 tablet every day by [facility]. [facility] mg/24 hr daily transdermal p atch Apply 1 patch every day by transdermal route for 90 days. nicotine 21 mg/24 hr daily transdermal p atch Apply 1 patch every day by transdermal route for 90 days. No 1patch(es) Q1D nicotine 21 mg/24 hr daily transdermal p atch Apply 1 patch every day by transdermal route for 90 days. [facility] prednisone 20 mg tablet Take 2 tablets e very day by oral route in the morning for 7 days. COPD RESCUE PACK: Start taking if your coughing and shortness of breath get worse, or you start coughing up yellow or green phlegm prednisone 20 mg tablet Take 2 tablets every day by oral route in the morning for 7 days. COPD RESCUE PACK: Start taking if your coughing and shortness of breath get worse, or you start coughing up yellow or green phlegm No 2 Q1D prednisone 20 mg tablet Take 2 tablets every day by oral route in the morning for 7 days. COPD RESCUE PACK: Start taking if your coughing and shortness of breath get worse, or you start coughing up yellow or green phlegm [facility] sulfamethoxazole 800 mg-trimethoprim 160 mg tablet Take 1 tablet twice a day by oral route for 7 days. COPD RESCUE PACK: Start taking if your coughing and shortness of breath get worse, or you start coughing up yellow or green phlegm sulfamethoxazole 800 mg-trimethoprim 160 mg tablet Take 1 tablet twice a day by oral route for 7 days. COPD RESCUE PACK: Start taking if your coughing and shortness of breath get worse, or you start coughing up yellow or green phlegm No 1 BID sulfametho xazole 800 mg-trimethoprim 160 mg tablet Take 1 tablet twice a day by oral route for 7 days. COPD RESCUE PACK: Start taking if your coughing and shortness of breath get worse, or you start coughing up yellow or green phlegm [facility] tamsul[facility] 0.4 mg capsule Take 1 capsule every day by oral route. tamsulosin 0.4 mg capsule Take 1 capsule every day by oral route. No tamsulosin 0.4 mg capsule Take 1 capsule every day by oral route. [facility] tramadol 50 mg tablet Take 1 tablet twic e a day by oral route as needed for 60 days. tramadol 50 mg tablet Take 1 tablet twic e a day by oral route as needed for 60 days. No tramadol 50 mg tablet Take 1 tablet twice a day by oral route as needed for 60 [facility] Trelegy Ellipta 100 mcg-62.5 mcg-25 mcg powder for inh alation Trelegy Ellipta 100 mcg-62.5 mcg-25 mcg powder for inhalation No Trelegy Ellipta 100 mcg-62.5 mcg-25 mcg powder for inhalation [facility] valsartan 80 mg tablet DAILY valsartan 80 mg tablet DAILY N o valsartan 80 mg tablet DAILY [facility] Immunizations Ordered Immunization Name Filled Immunization Name Date Status Comments Source influenza, recombinant, quadrIvalent,injectable, prese rvative free influenza, recombinant, quadrIvalent,injectable, preservative free 2019-10-07 12:52:00 Completed [facility] influenza, injectable, quadrivalent, preservative free influenza, injectable, quadrivalent, preservative free 2018-09-28 12:22:14 Completed [facility] Influenza, injectable, MDCK, quadrivalent Influenza, i njectable, MDCK, quadrivalent 2017-10-10 12:34:16 Completed [facility] influenza, injectable, quadrivalent influenza, injectable, q uadrivalent 2016-08-22 00:00:00 [facility] pneum[facility] polysaccharide PPV23 pneumococcal polysaccharid e PPV23 2012-08-10 00:00:00 [facility] Vital Signs Vital Name Observation Time Observation Value Comments Source BP Diastolic 2020-02-10 00:00:00 62 mm[Hg] [facility] Height 2020-02-10 00:00:00 62 [in_i] [facility] BP Systolic 2020-02-10 00:00:00 100 mm[Hg] [facility] BP Diastolic 2020-01-14 00:00:00 74 mm[Hg] [facility] Height 2020-01-14 00:00:00 62 [in_i] [facility] BMI (Body Mass Index) 2020-01-14 00:00:00 21 kg/m2 [facility] BP Systolic 2020-01-14 00:00:00 132 mm[Hg] [facility] Body Weight 2020-01-14 00:00:00 115 [lb_av] [facility] BP Diastolic 2020-01-06 00:00:00 88 mm[Hg] [facility] Height 2020-01-06 00:00:00 62 [in_i] [facility] BMI (Body Mass Index) 2020-01-06 00:00:00 21 kg/m2 [facility] BP Systolic 2020-01-06 00:00:00 132 mm[Hg] [facility] Body Weight 2020-01-06 00:00:00 115 [lb_av] [facility] BP Diastolic 2019-11-30 00:00:00 92 mm[Hg] [facility] Height 2019-11-30 00:00:00 62 [in_i] [facility] BMI (Body Mass Index) 2019-11-30 00:00:00 20.9 kg/m2 [facility] BP Systolic 2019-11-30 00:00:00 152 mm[Hg] [facility] Body Weight 2019-11-30 00:00:00 114 [lb_av] [facility] BP Diastolic 2019-11-02 00:00:00 90 mm[Hg] [facility] Height 2019-11-02 00:00:00 62 [in_i] [facility] BMI (Body Mass Index) 2019-11-02 00:00:00 21 kg/m2 [facility] BP Systolic 2019-11-02 00:00:00 160 mm[Hg] [facility] Body Weight 2019-11-02 00:00:00 115 [lb_av] [facility] BP Diastolic 2019-10-07 00:00:00 82 mm[Hg] [facility] Height 2019-10-07 00:00:00 62 [in_i] [facility] BMI (Body Mass Index) 2019-10-07 00:00:00 20.5 kg/m2 [facility] BP Systolic 2019-10-07 00:00:00 144 mm[Hg] [facility] Body Weight 2019-10-07 00:00:00 112 [lb_av] [facility] BP Diastolic 2019-06-28 00:00:00 82 mm[Hg] [facility] Height 2019-06-28 00:00:00 62 [in_i] [facility] BMI (Body Mass Index) 2019-06-28 00:00:00 19.4 kg/m2 [facility] BP Systolic 2019-06-28 00:00:00 120 mm[Hg] [facility] Body Weight 2019-06-28 00:00:00 106 [lb_av] [facility] BP Diastolic 2019-06-15 00:00:00 100 mm[Hg] [facility] Height 2019-06-15 00:00:00 62 [in_i] [facility] BMI (Body Mass Index) 2019-06-15 00:00:00 20.3 kg/m2 [facility] BP Systolic 2019-06-15 00:00:00 180 mm[Hg] [facility] Body Weight 2019-06-15 00:00:00 111 [lb_av] [facility] BP Diastolic 2019-06-14 00:00:00 90 mm[Hg] [facility] Height 2019-06-14 00:00:00 62 [in_i] [facility] BMI (Body Mass Index) 2019-06-14 00:00:00 20.3 kg/m2 [facility] BP Systolic 2019-06-14 00:00:00 156 mm[Hg] [facility] Body Weight 2019-06-14 00:00:00 111.2 [lb_av] [facility] BP Diastolic 2019-03-15 00:00:00 100 mm[Hg] [facility] Height 2019-03-15 00:00:00 62 [in_i] [facility] BMI (Body Mass Index) 2019-03-15 00:00:00 21.2 kg/m2 [facility] BP Systolic 2019-03-15 00:00:00 180 mm[Hg] [facility] Body Weight 2019-03-15 00:00:00 116 [lb_av] [facility] BP Diastolic 2019-03-02 00:00:00 76 mm[Hg] [facility] Height 2019-03-02 00:00:00 62 [in_i] [facility] BMI (Body Mass Index) 2019-03-02 00:00:00 21.2 kg/m2 [facility] BP Systolic 2019-03-02 00:00:00 130 mm[Hg] [facility] Body Weight 2019-03-02 00:00:00 116 [lb_av] [facility] Height 2018-12-28 00:00:00 62 [in_i] [facility] BMI (Body Mass Index) 2018-12-28 00:00:00 21 kg/m2 [facility] Body Weight 2018-12-28 00:00:00 115 [lb_av] [facility] Body Temperature 2020-05-24 07:47:00 98.1 [degF] [facility] BMI (Body Mass Index) 2020-05-23 23:20:00 21.6 kg/m2 [facility] Weight 2020-05-22 09:29:00 118 [lb_av] [facility] BP Systolic 2019-12-20 09:42:00 102 mm[Hg] [facility] BP Diastolic 2019-12-20 09:42:00 69 mm[Hg] [facility] Height 2019-12-20 09:42:00 62 [in_us] [facility] Weight 2019-12-20 09:42:00 115 [lb_av] [facility] Body Mass Index Calculated 2019-12-20 09:42:00 21.03 kg/m2 [facility] BP Systolic 2019-04-26 09:10:00 140 mm[Hg] [facility] BP Diastolic 2019-04-26 09:10:00 78 mm[Hg] [facility] Height 2019-04-26 09:10:00 62 [in_us] [facility] Weight 2019-04-26 09:10:00 115 [lb_av] [facility] Body Mass Index Calculated 2019-04-26 09:10:00 21.03 kg/m2 [facility] BP Systolic 2018-09-07 10:50:00 131 mm[Hg] [facility] BP Diastolic 2018-09-07 10:50:00 77 mm[Hg] [facility] Height 2018-09-07 10:50:00 62 [in_us] [facility] Weight 2018-09-07 10:50:00 105 [lb_av] [facility] Body Mass Index Calculated 2018-09-07 10:50:00 19.2 kg/m2 [facility] BP Systolic 2018-07-13 10:16:00 137 mm[Hg] [facility] BP Diastolic 2018-07-13 10:16:00 84 mm[Hg] [facility] Height 2018-07-13 10:16:00 62 [in_us] [facility] Weight 2018-07-13 10:16:00 103 [lb_av] [facility] Body Mass Index Calculated 2018-07-13 10:16:00 18.84 kg/m2 [facility] BP Systolic 2018-06-01 10:06:00 133 mm[Hg] [facility] BP Diastolic 2018-06-01 10:06:00 88 mm[Hg] [facility] Height 2018-06-01 10:06:00 62 [in_us] [facility] Weight 2018-06-01 10:06:00 103 [lb_av] [facility] Body Mass Index Calculated 2018-06-01 10:06:00 18.84 kg/m2 [facility] BP Systolic 2018-05-04 15:58:00 129 mm[Hg] [facility] BP Diastolic 2018-05-04 15:58:00 79 mm[Hg] [facility] Height 2018-05-04 15:58:00 62 [in_us] [facility] Weight 2018-05-04 15:58:00 100 [lb_av] [facility] Body Mass Index Calculated 2018-05-04 15:58:00 18.29 kg/m2 [facility] BP Systolic 2018-02-23 10:38:00 150 mm[Hg] [facility] BP Diastolic 2018-02-23 10:38:00 76 mm[Hg] [facility] Height 2018-02-23 10:38:00 62 [in_us] [facility] Weight 2018-02-23 10:38:00 101 [lb_av] [facility] Body Mass Index Calculated 2018-02-23 10:38:00 18.47 kg/m2 [facility] BP Systolic 2018-01-12 10:39:00 159 mm[Hg] [facility] BP Diastolic 2018-01-12 10:39:00 76 mm[Hg] [facility] Height 2018-01-12 10:39:00 62 [in_us] [facility] Weight 2018-01-12 10:39:00 104 [lb_av] [facility] Body Mass Index Calculated 2018-01-12 10:39:00 19.02 kg/m2 [facility] Procedures Procedure Date / Time Performed Performing Clinician [facility] e CT CHEST LUNG CANCER SCREENING 2020-06-19 09:58:00 Reny Weber X-RAY OF CHEST 2 VIEW 2020-01-06 00:00:00 [facility] CVRAD - Abdominal Duplex Comp - [id number] 2019-12-15 00:00:00 [facility] CVRAD - Bilateral Lower Arterial Duplex - [id number] 2019-12-15 00:00 :00 [facility] CVRAD - Lower Arterial Seg. Pressures - [id number] 2019-12-15 00:00:0 0 [facility] X-RAY OF CHEST 2 VIEW 2019-11-02 00:00:00 [facility] X-RAY HIP UNLIATERAL (2-3 VIEWS) 2019-10-07 00:00:00 [facility] US, abdomen, complete 2019-10-07 00:00:00 [facility] X-RAY OF LUMBAR SPINE 2 OR 3 VIEW 2019-06-14 00:00:00 [facility] CVRAD - Abdominal Duplex Comp - [id number] 2019-04-26 00:00:00 [facility] CVRAD - Bilateral Lower Arterial Duplex - [id number] 2019-04-26 00:00 :00 [facility] CVRAD - Lower Arterial Seg. Pressures - [id number] 2019-04-26 00:00:0 0 [facility] X-RAY OF CHEST 2 VIEW 2019-03-02 00:00:00 [facility] X-RAY HIP UNLIATERAL (2-3 VIEWS) 2019-03-02 00:00:00 [facility] CVRAD - Bilateral Lower Arterial Duplex - [id number] 2018-07-13 00:00 :00 [facility] CVRAD - Lower Arterial Seg. Pressures - [id number] 2018-07-13 00:00:0 0 [facility] [place] [facility] CVRAD - Bilateral Lower Arterial Duplex - [id number] 2018-05-04 00:00 :00 [facility] CVRAD - Lower Arterial Seg. Pressures - [id number] 2018-05-04 00:00:0 0 [facility] CTA Aorta with femoral runoff [id number] 2018-01-12 00:00:00 [facility] Colonoscopy 2017-09-02 00:00:00 [facility] ly Practice History of Cath Stent Placement [facility] History of CABG [facility] aide Physicians [facility] vito Plan of Care Planned Activity Planned Date Details Comments Source Future Scheduled Test 2020-06-24 00:00:00 INFLUENZA VACCINE [code = INFLUENZA VACCINE] [facility] Future Scheduled Test 2007 00:00:00 COLONOSCOPY SCREEN ING [code = COLONOSCOPY SCREENING] [facility] Future Scheduled Test 2007 00:00:00 SHINGLES VACCINES (#1) [code = SHINGLES VACCINES (#1)] [facility] Future Appointment 2020-07-28 09:15:00 Bennie Chambers Jr, [address]; [address], [place] [address] [facility] Instructions Chest Pain - Noncardiac [facility] Instructions [facility] Encounters Start Date/Time End Date/Time [facility] ID Source 2020-06-19 00:00:00 2020-06-19 00:00:00 Outpatient RENY WEBER [facility] [id number] [facility] 2020-06-01 00:00:00 2020-06-01 00:00:00 Bennie Chambers Jr, MD: [address], [address], [place] [address], Ph. [facility] - VM_HOU_Hobby [id number] [facility] 2020-05-31 00:00:00 2020-05-31 00:00:00 Marta Richard: [address] [facility], [address], [place] [address], Ph. [facility] - VM_HOU_Care Management [id number] [facility] 2020-05-23 22:20:00 2020-05-24 12:00:00 Discharged Inpatient (obs) [facility] [id number] [facility] 2020-05-02 00:00:00 2020-05-02 00:00:00 Marta Richard: [address] [facility], [address], [place] [address], Ph. [facility] - VM_HOU_Care Management [id number] [facility] 2020-04-28 00:00:00 2020-04-28 00:00:00 Bennie Chambers Jr, MD: [address], [address], [place] [address], Ph. [facility] - VM_HOU_Hobby [id number] [facility] 2020-04-10 00:00:00 2020-04-10 00:00:00 Bennie Chambers Jr, MD: [address], [address], [place] [address], Ph. [facility] - VM_HOU_Hobby [id number] [facility] 2020-04-06 00:00:00 2020-04-06 00:00:00 Bennie Chambers Jr, MD: [address], [address], [place] [address], Ph. [facility] - VM_HOU_Hobby [id number] [facility] 2020-03-13 00:00:00 2020-03-13 00:00:00 Bennie Chambers Jr, MD: [address], [address], [place] [address], Ph. [facility] - VM_HOU_Hobby [id number] [facility] 2020-02-22 00:00:00 2020-02-22 00:00:00 Bennie Chambers Jr, MD: [address], [address], [place] [address], Ph. [facility] - VM_HOU_Hobby [id number] [facility] 2020-02-10 00:00:00 2020-02-10 00:00:00 Rory brantley MD: [address], [address], [place] [address], Ph. [facility] - VM_HOU_Hobby [id number] [facility] 2020-01-14 00:00:00 2020-01-14 00:00:00 Bennie Chambers Jr, MD: [address], [place] [address], Ph. [facility] - VM[facility]HOU_Hobby [id number] [facility] 2020-01-06 00:00:00 2020-01-06 00:00:00 Bennie Chambers Jr, MD: [address], [place] [address], Ph. [facility] - [facility]HOU_Hobby [id number] [facility] 2019-12-20 09:15:00 2019-12-20 09:15:00 Appointment; DODIE BRADSHAW M.D. NAHAS, CESAR, M.D. [facility] Cardiothoracic & Vascular Surgery [facility] [id number] [facility] 2019-12-15 10:30:00 2019-12-15 10:30:00 [facility], DR BRADSHAW [facility] Cardiothoracic & Vascular Surgery [facility] [id number] [facility] 2019-11-30 00:00:00 2019-11-30 00:00:00 Bennie Chambers Jr, MD: [address], [address], [place] [address], Ph. [facility] - [facility]_Hobby [id number] [facility] 2019-11-20 21:24:00 2019-11-20 19:48:00 Inpatient E [facility] [id number] [facility] 2019-11-02 00:00:00 2019-11-02 00:00:00 Bennie Chambers Jr, MD: [address], [facility] [address], [place] [address], Ph. [facility] - [facility]HOU_Hobby [id number] [facility] 2019-10-07 00:00:00 2019-10-07 00:00:00 Bennie Chambers Jr, MD: [address], [address], [place] [address], Ph. [facility] - [facility]HOU_Hobby [id number] [facility] 2019-06-28 00:00:00 2019-06-28 00:00:00 Bennie Chambers Jr, MD: [address], [address], [place] [address], [facility] [id number] [facility] 2019-06-15 00:00:00 2019-06-15 00:00:00 Bennie Chambers Jr, MD: [address], [address], [place] [address], Ph. [facility] - VFP-Hobby [id number] [facility] 2019-06-14 00:00:00 2019-06-14 00:00:00 Bennie Chambers Jr, MD: [address], [address], [place] [address], Ph. [facility]-H[facility] [id number] [facility] 2019-04-26 09:00:00 2019-04-26 09:00:00 Appointment; DODIE BRADSHAW M.D. NAHAS, CESAR, M.D. [facility] Cardiothoracic & Vascular Surgery [facility] [id number] [facility] 2019-04-26 07:00:00 2019-04-26 07:00:00 [facility] Cardiothoracic & Vascular Surgery [facility] [id number] [facility] 2019-03-15 00:00:00 2019-03-15 00:00:00 Bennie Chambers Jr, MD: [address], [place] [address], Ph. [facility] [id number] [facility] 2019-03-02 00:00:00 2019-03-02 00:00:00 Bennie Chambers Jr, MD: [address], [place] [address], Ph. [facility] [id number] [facility] 2018-12-28 00:00:00 2018-12-28 00:00:00 Bennie Chambers Jr, MD: [address], [place] [address], Ph. [facility] [id number] [facility] 2018-09-07 10:45:00 2018-09-07 10:45:00 Appointment; DODIE BRADSHAW M.D. NAHAS, CESAR, M.D. [facility] Cardiothoracic and Vascular Surgery - Dr Capri Bradshaw [id number] [facility] 2018-09-02 12:00:00 2018-09-02 12:00:00 Appointment; DR CAITY RAMIREZ DR NAHAS [facility] Cardiothoracic and Vascular Surgery - Dr Capri Bradshaw [id number] [facility] 2018-07-13 10:15:00 2018-07-13 10:15:00 Appointment; DODIE BRADSHAW M.D. NAHAS, CESAR, M.D. [facility] Cardiothoracic and Vascular Surgery - Dr Capri Bradshaw [id number] [facility] 2018-07-13 09:00:00 2018-07-13 09:00:00 Appointment; DR CAITY RAMIREZ DR NAHAS [facility] Cardiothoracic and Vascular Surgery - Dr Capri Bradshaw [id number] [facility] 2018-06-01 09:45:00 2018-06-01 09:45:00 Appointment; DODIE BRADSHAW M.D. NAHAS, CESAR, M.D. [facility] Cardiothoracic and Vascular Surgery - Dr Capri Bradshaw [id number] [facility] 2018-05-04 16:00:00 2018-05-04 16:00:00 Appointment; DODIE BRADSHAW M.D. NAHAS, CESAR, M.D. [facility] Cardiothoracic and Vascular Surgery - Dr Capri Bradshaw [id number] [facility] 2018-05-04 15:00:00 2018-05-04 15:00:00 Appointment; DR CAITY RAMIREZ DR NAHAS [facility] Cardiothoracic and Vascular Surgery - Dr Capri Bradshaw [id number] [facility] 2018-02-23 10:15:00 2018-02-23 10:15:00 Appointment; DODIE BRADSHAW M.D. NAHAS, CESAR, M.D. [facility] Cardiothoracic and Vascular Surgery - Dr Capri Bradshaw [id number] [facility] 2018-01-12 10:00:00 2018-01-12 10:00:00 Appointment; DODIE BRADSHAW M.D. NAHAS, CESAR, M.D. [facility] Cardiothoracic and Vascular Surgery - Dr Capri Bradshaw [id number] [facility] 2018-01-12 09:00:00 2018-01-12 09:00:00 Appointment; [facility], [facility]AD[facility]W [facility], [facility] BRADSHAW [facility] [id number] [facility] Results Test Description Test Time Test Comments Results Result Comments Source CT Chest Lung Cancer Screening 2020-06-19 10:36:59 Hm Interface, Radiology Results 06/19/2020 10:40 AM CDTEXAMINATION:CT CHEST LUNG CANCER SCREENINGCLINICAL HISTORY:Personal history of nicotine dependenceThe patient qualifies for lung cancer screening by meeting the following criteria:1. Patient is age 55-75 years2. Patient has 30 or more pack years history of smoking3. Patient is a current or a former smoker who has quit within the last 15 years4. Patient is asymptomatic5. Patient has not had a CT scan of the chest within the last year6. Patient has no known history of [place] lung cancer within the last 5 years TECHNIQUE:Multiple axial images of the chest were obtained without intravenous contrast. Sagittal and coronal computerized reformatted images were also obtained. The study was performed using low-dose lung cancer screening prot ocol. CT imaging was performed with iterative reconstruction techniques and/or automated exposure control to reduce radiation dose. COMPARISON:None.FINDINGS:1.There are multiple calcified bilateral granulomas. There are a couple bilateral fissural 2 to 3 mm noncalcified nodules (image 65, 69) consistent with benign intrapulmonary nodes. A 3 mm left lower lobe nodule on image 97) is present.2.There is mild biapical paraseptal emphysema. There is no acute consolidation.3.No pleural or pericardial effusions present.4.No thoracic lymphadenopathy is seen.5.The heart size is normal. Surgical coronary a rtery bypass change noted.6.There is no acute or suspicious upper abdominal finding.7.No significant skeletal abnormality is seen.IMPRESSION:Multiple bilateral 3 mm and smaller pulmonary nodules. No suspicious pulmonary nodule.Lung RADS category: 2-benignRecommendation:Continue annual screening with low dose CT in 12 months Lun g RADS (Category: Defined parameters --- Recommendation)0: Incomplete: Priors unavailable or incomplete visualization/ evaluation of lungs --- Additional imaging and/or comparison to priors1: Negative: No nodules or ones with complete, central, popcorn, concentric Ca++ or fat --- Continue annual LDCT in 12 months2: Benign: Solid <6mm, new <4mm; Part solid < 6mm; GGN <20mm or >20 unchanged or slowly growing; or Cat 3 or 4 nodules unchanged > 3 months ---Continue annual LDCT in 12 months3. Probably benign: Solid >6-8mm baseline, new 4-6 mm; Part solid >6mm or new <6mm; or GGN >20 mm @ baseline or new ---6 month LDCT4A. Suspicious: Solid 8-15mm baseline, growing < 8mm, new 6-8mm; Part solid > 6mm with solid component 6-8mm or new/growing <4mm component; Endob rochial nodule ---3 month LDCT; PET/CT when >8mm solid [id number]: Suspicious: Solid >15mm or new/growing >4mm component; Part solid solid component >8mm or new/growing >4mm componentChest CT with or w/o contrast; PET/CT and/or tissue sampling depending on probablility and co-bfhosbqlook5T: Cat 3 or 4 nodules with features that increase likelihood or malignacy (spiculation, retraction ,etc...)Chest CT with or w/o contrast; PET/CT and/or tissue sampling depending on probablility and co-morbidiitesModifier S - Clinically significant or potentially significant findingsModifier C - Patient with previous history of lung malignancy, returned to screening populationNote: Growth = >1.5mm increase measurements = average of 2 dimensions in lung windowsA full explanation of the Lung-Rads categories can be found [email or web address]/Documents/PDF/[email or web address]/Resources/LungRads/AssessmentCategories [employer] Fluoroscopic procedure less than one hour duration 2020-04-25 13:30:00 Test Item Coronavirus (PCR) (test code = Coronavirus (PCR)) NOT DETECTED NOTD ETECTED SARS-COV-2 (COVID19), HIGHRISK, RT-PCRNegative results do not preclude SARS-CoV- 2 infection and should not be used as the sole basis for patient management deci sions. Negative results must be combined with clinical observations, patient his tory, and epidemiological information. Optimum specimen types and timing for pea k viral levels during infections caused by SARS-CoV-2 have not been determined. Collection of multiple specimens ot types of specimens may be necessary to detec t virus. Improper specimen collection and handling, sequence variability under p rimers/probes, or organism present below the limit of detection may lead to fals e negative results. Positive and negative predictive values of testing are highl y dependent on prevalance. False negative test results are more likely when prev alence is high.The expected result is negative (not detected).The SARS-CoV-2 emma t is intended for the qualitative detection of nucleic acid from SARS-CoV-2 in n asopharyngeal and oropharyngeal swab samples from patients who meet COVID-19 cli nical and or epidemiological criteria. For lower respiratory tract specimens, th e assay is submitted for authoriztion by FDA under an Emergency Use Authorizatio n (EUA). Testing methodology is real time RT-PCR. If received as separate collec tion devices, nasopharygeal and oropharyngeal specimens are combined for analysi s. Additional specimens may be split to a separate accession for analysi and rep orting as this test includes a single unit of service.Test results must be corre lated with clinical presentation and evaluated in the context of other laborator y and epidemiologic data. Test performance can be affected because the epidemiol ogy and clinical spectrum of infection caused by SARS-CoV-2 is not fully known. For example, the optimum types of specimens to collect and when during the cours e of infection these specimens are most likely to contain detectable viral RNA m ay not be known.This test has not been Food and Drug Administration (FDA) cleare d or approved and has been authorized by FDA under an Emergency Use Authorizatio n (EUA). The test is only authorized for the duration of the declaration that ci rcumstances exist justifying the authorization of emergency use of in vitro diag nostic tests for detection and/or diagnosis of SARS-CoV-2 under section 564(b) o f the Act, 21 U.S.C. section 360bbb-3(b)(1), unless the authorization is termina chuck or revoked sooner. [facility] are certified under the C linical Laboratory Improvement Amendments of 1988 (CLIA), 42 U.S.C. section 263a , to perform high complexity tests.Testing performed by [facility] [address] [phone] Director: Rafa Mac M.D.CLIA # [id number] Health System Ben [facility]ub HospitalBlood leukocytes automated count (number/volume)2020-05-18 13:07:00* Test Item Value Reference Range Interpretation Comments White Blood Count (test code = 6690-2) 8.73 4.8-10.8 [facility] erythrocytes automated count (number/volume)2020-05-18 13:07:00* Test Item Value Reference Range Interpretation Comments Red Blood Count (test code = 789-8) 4.35 4.3-5.7 [facility] HospitalBlood hemoglobin measurement (moles/volume)2020-05-18 13:07:00* Test Item Value Reference Range Interpretation Comments Hemoglobin (test code = 40056-9) 13.4 14.0-18.0 [facility] HospitalAutomated blood hematocrit (volume fraction)2020-05-18 13:07:00* Test Item Value Reference Range Interpretation Comments Hematocrit (test code = 4544-3) 42.2 38.2-49.6 [facility] HospitalAutomated erythrocyte mean corpuscular ticrgm7153-24-87 13:07:00* Test Item Value Reference Range Interpretation Comments Mean Corpuscular Volume (test code = 787-2) 97.0 81-99 [facility] HospitalAutomated erythrocyte mean corpuscular hemoglobin (mass per erythrocyte)2020-05-18 13:07:00* Test Item Value Reference Range Interpretation Comments Mean Corpuscular Hemoglobin (test code = 785-6) 30.8 28-32 [facility] HospitalAutomated erythrocyte mean corpuscular hemoglobin concentration measurement (mass/volume)2020-05-18 13:07:00* Test Item Value Reference Range Interpretation Comments Mean Corpuscular Hemoglobin Concent (test code = 786-4) 31.8 31-35 [facility] HospitalRDW UzyOm-Xas3010-59-25 13:07:00* Test Item Value Reference Range Interpretation Comments Red Cell Distribution Width (test code = 73890-8) 14.8 11.7 -14.4 [facility] HospitalAutomated blood platelet count (count/volume)2020-05-18 13:07:00* Test Item Value Reference Range Interpretation Comments Platelet Count (test code = 777-3) 233 140-360 [facility] HospitalAutomated blood segmented neutrophil count as percentage of total vnrcjrcevg1521-13-24 13:07:00* Test Item Value Reference Range Interpretation Comments Neutrophils (%) (Auto) (test code = 14856-5) 83.6 38.7-80.0 [facility] HospitalAutomated blood lymphocyte count as percentage ot total qqqilgrpma6298-62-98 13:07:00* Test Item Value Reference Range Interpretation Comments Lymphocytes (%) (Auto) (test code = 736-9) 12.9 18.0-39.1 [facility] HospitalAutomated blood monocyte count as percentage of total vtjcepffsg9294-67-34 13:07:00* Test Item Value Reference Range Interpretation Comments Monocytes (%) (Auto) (test code = 5905-5) 2.2 4.4-11.3 [facility] HospitalAutomated blood eosinophil count as percentage of total iiommbubtb9900-75-00 13:07:00* Test Item Value Reference Range Interpretation Comments Eosinophils (%) (Auto) (test code = 713-8) 0.2 0.0-6.0 [facility] HospitalAutomated blood basophil count as percentage of total ncmacpczpz8929-39-18 13:07:00* Test Item Value Reference Range Interpretation Comments Basophils (%) (Auto) (test code = 706-2) 0.1 0.0-1.0 [facility] HospitalFluoroscopic procedure less than one hour qypqziif2211-43-65 13:07:00* Test Item Value Reference Range Interpretation Comments IM GRANULOCYTES % (test code = IM GRANULOCYTES %) 1.0 0.0- 1.0 [facility] HospitalAutomated blood neutrophil count 2020-05-18 13:07:00* Test Item Value Reference Range Interpretation Comments Neutrophils # (Auto) (test code = 751-8) 7.3 2.1-6.9 [facility] HospitalBlood lymphocytes count (number/volume) 2020-05-18 13:07:00* Test Item Value Reference Range Interpretation Comments Lymphocytes # (Auto) (test code = 68048-7) 1.1 1.0-3.2 [facility] monocytes automated count (number/volume)2020-05-18 13:07:00* Test Item Value Reference Range Interpretation Comments Monocytes # (Auto) (test code = 742-7) 0.2 0.2-0.8 [facility] HospitalAutomated blood eosinophil count 2020-05-18 13:07:00* Test Item Value Reference Range Interpretation Comments Eosinophils # (Auto) (test code = 711-2) 0.0 0.0-0.4 [facility] HospitalAutomated blood basophil count (count/volume)2020-05-18 13:07:00* Test Item Value Reference Range Interpretation Comments Basophils # (Auto) (test code = 704-7) 0.0 0.0-0.1 [facility] HospitalFluoroscopic procedure less than one hour hbtafjjl4317-42-61 13:07:00* Test Item Value Reference Range Interpretation Comments Absolute Immature Granulocyte (auto (emma t code = Absolute Immature Granulocyte (auto) 0.09 0-0.1 [facility] sodium [facility] (moles/volume)2020-05-18 13:07:00* Test Item Value Reference Range Interpretation Comments Sodium Level (test code = 2951-2) 134 136-145 [facility] potassium measurement (moles/volume)2020-05-18 13:07:00* Test Item Value Reference Range Interpretation Comments Potassium Level (test code = 2823-3) 4.3 3.5-5.1 [facility] chloride measurement (moles/volume)2020-05-18 13:07:00* Test Item Value Reference Range Interpretation Comments Chloride Level (test code = 2075-0) 98 98-107 [facility]erum or plasma carbon dioxide, total measurement (moles/volume)2020-05-18 13:07:00* Test Item Value Reference Range Interpretation Comments Carbon Dioxide Level (test code = 2028-9) 23 22-29 [facility] or plasma anion aby7963-09-69 13:07:00* Test Item Value Reference Range Interpretation Comments Anion Gap (test code = 12451-4) 17.3 8-16 [facility] plasma urea nitrogen measurement (mass/volume)2020-05-18 13:07:00* Test Item Value Reference Range Interpretation Comments Blood Urea Nitrogen (test code = 3094-0) 13 7-26 [facility] plasma creatinine measurement (mass/volume)2020-05-18 13:07:00* Test Item Value Reference Range Interpretation Comments Creatinine (test code = 2160-0) 1.44 0.72-1.25 [facility] or plasma urea nitrogen/creatinine mass ezejx4961-98-21 13:07:00* Test Item Value Reference Range Interpretation Comments BUN/Creatinine Ratio (test code = 3097-3) 9 6-25 [facility] HospitalEstimated glomerular filtration rate (GFR) icbjjgwyvpxtg1101-85-58 13:07:00* Test Item Value Reference Range Interpretation Comments Estimat Glomerular Filtration Rate (test code = 296369451) 60 >60 Ranges were taken from the National Kidney Disease Education Program and the [facility] literature.Reference ranges:60 or greater: Shglzo29-07 ( for 3 consecutive months): Chronic kidney disease 15 or less: Kidney failureHarris Health System Ben Taub HospitalGlucose ftetryeegfn5736-72-36 13:07:00* Test Item Value Reference Range Interpretation Comments Glucose Level (test code = FMN9664) 97 74-118 [facility] or plasma calcium measurement (mass/volume)2020-05-18 13:07:00* Test Item Value Reference Range Interpretation Comments Calcium Level (test code = 64966-2) 9.6 8.4-10.2 [facility] total bilirubin measurement (mass/volume)2020-05-18 13:07:00* Test Item Value Reference Range Interpretation Comments Total Bilirubin (test code = 1975-2) 0.5 0.2-1.2 [facility] HospitalFluoroscopic procedure less than one hour [id number] 13:07:00* Test Item Value Reference Range Interpretation Comments Aspartate Amino Transf (AST/SGOT) (test code = Aspartate Amino Transf (AST/SGOT)) 20 5-34 [facility] alanine aminotransferase measurement (enzymatic activity/volume)2020-05-18 13:07:00* Test Item Value Reference Range Interpretation Comments Alanine Aminotransferase (ALT/SGPT) (test code = 1742-6) 17 0-55 [facility] protein measurement (mass/volume)2020-05-18 13:07:00* Test Item Value Reference Range Interpretation Comments Total Protein (test code = 2885-2) 7.1 6.5-8.1 [facility] albumin measurement (mass/volume)2020-05-18 13:07:00* Test Item Value Reference Range Interpretation Comments Albumin (test code = 1751-7) 4.0 3.5-5.0 [facility] HospitalPlasma globulin measurement (mass/volume) 2020-05-18 13:07:00* Test Item Value Reference Range Interpretation Comments Globulin (test code = 01802-4) 3.1 2.3-3.5 [facility] albumin/globulin mass [id number] 13:07:00* Test Item Value Reference Range Interpretation Comments Albumin/Globulin Ratio (test code = 1759-0) 1.3 0.8-2.0 [facility] alkaline phosphatase measurement (enzymatic activity/volume)2020-05-18 13:07:00* Test Item Value Reference Range Interpretation Comments Alkaline Phosphatase (test code = 6768-6) 86 40-150 [facility] Hospitalrapid flu (A+B)2020-02-10 15:49:00* Test Item Value Reference Range Interpretation Comments Type Flu A (test code = Type Flu A) negative Type Flu B (test code = Type Flu B) negative [facility] flu (A+B)2020-02-10 15:49:00* Test Item Value Reference Range Interpretation Comments Type Flu A (test code = Type Flu A) negative Type Flu B (test code = Type Flu B) negative [facility] flu (A+B)2020-02-10 15:49:00* Test Item Value Reference Range Interpretation Comments Type Flu A (test code = Type Flu A) negative Type Flu B (test code = Type Flu B) negative [facility] W Auto Differential panel - [id number] 00:00:00 * Test Item Value Reference Range Interpretation Comments white blood cell count (test code = white blood cell count) 12.1 thousand/uL 3.8-10.8 H red blood cell count (test code = red blood cell count) 4.02 million/uL 4.20-5.80 L hemoglobin (test code = hemoglobin) 12.1 g/dL 13.2-17.1 L hematocrit (test code = hematocrit) 38.0 % 38.5-50.0 L MCV (test code = MCV) 94.5 fL 80.0-100.0 MCH (test code = MCH) 30.1 pg 27.0-33.0 MCHC (test code = MCHC) 31.8 g/dL 32.0-36.0 L RDW (test code = RDW) 15.4 % 11.0-15.0 H platelet count (test code = platelet count) 264 thousand/uL 140-400 MPV (test code = MPV) 11.8 fL 7.5-12.5 absolute neutrophils (test code = absolute neutrophils) 9257 reji ls/uL 3126-9345 H absolute lymphocytes (test code = absolute lymphocytes) 2081 reji ls/uL 850-3900 absolute monocytes (test code = absolute monocytes) 738 cells/uL 20 0-950 absolute eosinophils (test code = absolute eosinophils) 0 cells/uL 15-500 L absolute basophils (test code = absolute basophils) 24 cells/uL 0- 200 neutrophils (test code = neutrophils) 76.5 % lymphocytes (test code = lymphocytes) 17.2 % monocytes (test code = monocytes) 6.1 % eosinophils (test code = eosinophils) 0.0 % basophils (test code = basophils) 0.2 % [facility] - Serum or [id number] 08:37:00* Test Item Value Reference Range Interpretation Comments HDL (test code = HDL) 80 mg/dL triglyceride (test code = triglyceride) 64 mg/dL <150 VLDL (calculated) (test code = VLDL (calculated)) 13 mg/dL cholesterol/HDL ratio (test code = cholesterol/HDL ratio) 2.0 mg/dL non-HDL cholesterol (calculated) (test code = non-HDL cholesterol (calculated)) 81 mg/dL <160 cholesterol (test code = cholesterol) 161 mg/dL <200 Cholesterol in LDL [Mass/volume] in Serum or Plasma (t est code = 2089-1) 68 mg/dL <130 [facility] - Serum or Plasma 2020-01-07 00:00:00* Test Item Value Reference Range Interpretation Comments ALT (test code = ALT) 38 U/L 0-55 AST (test code = AST) 31 U/L 5-34 BUN (test code = BUN) 14.6 mg/dL 8.4-25.0 alk phos (test code = alk phos) 76 unit/L 40-150 glucose (test code = glucose) 78 mg/dL 70-99 albumin (test code = albumin) 3.5 g/dL 3.4-5.1 creatinine (test code = creatinine) 1.25 mg/dL 0.72-1.25 eGFR non- (test code = eGFR non-starla n comoran) 59 mL/min/1.73m2 A total bilirubin (test code = total bilirubin) 0.2 mg/dL 0.2-1.2 eGFR - (test code = eGFR - ) >60 sodium (test code = sodium) 139 mEq/L 135-145 potassium (test code = potassium) 5.0 mEq/L 3.5-5.3 chloride (test code = chloride) 104 mmol/L 98-110 total protein (test code = total protein) 6.2 g/dL 6.1-8.2 calcium (test code = calcium) 8.9 mg/dL 9.0-10.2 L CO2 (test code = CO2) 24.3 mmol/L 20.0-32.0 anion gap (test code = anion gap) 11 calc [facility] PracticeUrinalysis macro (dipstick) panel - [id number] 11:41:00* Test Item Value Reference Range Interpretation Comments Color Color (test code = Color Color) yellow Color Appearance (test code = Color Appearance) clear Color Glucose (test code = Color Glucose) negative Color Bilirubin (test code = Color Bilirubin) negative Color Ketones (test code = Color Ketones) negative Color Specific [place] (test code = Color Specific [place]) 1.015 Color Blood (test code = Color Blood) negative Color PH (test code = Color PH) 6.5 Color Protein (test code = Color Protein) negative Color Urobilinogen (test code = Color Urobilinogen) 0.2 Color Nitrites (test code = Color Nitrites) negative Color Leukocytes (test code = Color Leukocytes) negative [facility] (dipstick) panel - [id number] 11:41:00* Test Item Value Reference Range Interpretation Comments Color Color (test code = Color Color) yellow Color Appearance (test code = Color Appearance) clear Color Glucose (test code = Color Glucose) negative Color Bilirubin (test code = Color Bilirubin) negative Color Ketones (test code = Color Ketones) negative Color Specific [place] (test code = Color Specific [place]) 1.015 Color Blood (test code = Color Blood) negative Color PH (test code = Color PH) 6.5 Color Protein (test code = Color Protein) negative Color Urobilinogen (test code = Color Urobilinogen) 0.2 Color Nitrites (test code = Color Nitrites) negative Color Leukocytes (test code = Color Leukocytes) negative [facility] 2000 panel - Serum or Plasma 2019-06-14 18:02:00* Test Item Value Reference Range Interpretation Comments ALT (test code = ALT) 28 U/L 0-55 AST (test code = AST) 28 U/L 5-34 BUN (test code = BUN) 16.7 mg/dL 8.4-25.0 alk phos (test code = alk phos) 102 unit/L 40-150 glucose (test code = glucose) 87 mg/dL 70-99 albumin (test code = albumin) 3.6 g/dL 3.4-5.1 creatinine (test code = creatinine) 1.19 mg/dL 0.72-1.25 eGFR non- (test code = eGFR non-) > 60 total bilirubin (test code = total bilirubin) 0.3 mg/dL 0.2-1.2 eGFR - (test code = eGFR - ) >60 sodium (test code = sodium) 141 mEq/L 135-145 potassium (test code = potassium) 4.9 mEq/L 3.5-5.1 chloride (test code = chloride) 107 mmol/L 98-110 total protein (test code = total protein) 6.7 g/dL 6.1-8.2 calcium (test code = calcium) 9.2 mg/dL 9.0-10.2 CO2 (test code = CO2) 27.3 mmol/L 20.0-32.0 anion gap (test code = anion gap) 7 calc [facility] panel - Serum or [id number] 17:06:00* Test Item Value Reference Range Interpretation Comments HDL (test code = HDL) 59 mg/dL triglyceride (test code = triglyceride) 85 mg/dL 0-150 VLDL (calculated) (test code = VLDL (calculated)) 17 mg/dL cholesterol/HDL ratio (test code = cholesterol/HDL ratio) 2.4 mg/dL non-HDL cholesterol (calculated) (test code = non-HDL cholesterol (calculated)) 84 mg/dL 0-160 cholesterol (test code = cholesterol) 143 mg/dL 0-200 Cholesterol in LDL [Mass/volume] in Serum or Plasma (t est code = 2089-1) 67 mg/dL 0-130 [facility], serum or [id number] 17:06:00* Test Item Value Reference Range Interpretation Comments PSA, total (test code = PSA, total) 0.17 NG/mL 0.00-4.00 [facility] Differential panel - [id number] 15:46:00 * Test Item Value Reference Range Interpretation Comments WBC (test code = WBC) 4.56 x10*3/?L 4.23-9.07 RBC (test code = RBC) 4.10 10*12/L 4.63-6.08 L hemoglobin (test code = hemoglobin) 12.80 g/dL 13.70-17.50 L hematocrit (test code = hematocrit) 38.7 % 40.1-51.0 L MCV (test code = MCV) 94.4 fL 80.0-100.0 MCH (test code = MCH) 31.2 pg 25.7-32.2 MCHC (test code = MCHC) 33.1 g/dL 32.3-36.5 RDW-SD (test code = RDW-SD) 51.8 fL 35.1-43.9 H platelet count (test code = platelet count) 238.0 k/uL 163.0-337. 0 MPV (test code = MPV) 11.8 fL 7.5-11.5 H neut% (test code = neut%) 56.0 % 34.0-67.9 lymph% (test code = lymph%) 33.3 % 21.8-53.1 mon% (test code = mon%) 9.4 % 5.3-12.2 eos% (test code = eos%) 1.1 % 0.8-7.0 baso% (test code = baso%) 0.2 % 0.2-1.2 neut# (test code = neut#) 2.6 x10*3/?L 1.8-5.4 lymph# (test code = lymph#) 1.5 x10*3/?L 1.3-3.6 mon# (test code = mon#) 0.4 x10*3/?L 0.3-0.8 eos# (test code = eos#) 0.05 x10*3/?L 0.04-0.54 baso# (test code = baso#) 0.01 x10*3/?L 0.01-0.08 [facility] LD LUNG CA [id number] 11:31:00 Name: KASHIF ARIAS [facility] : 1955 Age/S: 63 / M [address] [place] [address] Blvd Unit #: [id number] Loc: [place] [address] Phys: David Weber MD Acct: [id number] Di s Date: Status: REG CLI PHONE #: Exam Date: 06/08/2019 1006 FAX #: Reason: Z87.891 PERSONAL HISTORY OF NICOTINE DEPENCE EXAMS: CPT CODE: [id number] CT LD LUNG CA SCREENING G0297 LUNG SCREENING LOW-DOSE C T THORAX WITHOUT CONTRAST 06/08/2019. HISTORY: Asymptomatic patient meeting high-risk criteria for lung screening. 40 pack year smoking hist ory. Current smoker. Exam: Baseline screening. COMP ARISON: Diagnostic chest CT to 07/13/[address] studies osorio ing back to 04/27/2015. TECHNIQUE: Noncontrast, volumetric low-dose CT Chest. KVp = 120; mA = 50; CTDlvol = 1.2 mGy; DLP: 43.7 mGy-cm FINDINGS: LUNG NODULES: Old granulomatous disease and apical subpleu ral bullous emphysema with noncalcified nodules described below, 1. Right upper lobe , 4 mm; oval-shaped, noncalcified; Series 9, image(s) 80. Change?: Stable back to 2014. 2. Left upper lobe fissural , 4 mm; fissur al, likely intrapulmonary lymph node; Series 9, image(s) 30. Change?: Stab le back to 2014. Additional calcified fissural intrapulmonary lymp h nodes noted incidentally and also grossly stable back to 2014. OTHER LUNG DISEASE: No edema or consolidation. Biapical subpleural b ullous emphysema. No pleural fluid. AORTA: Moderate aortic calcification without aneurysm. HEART / PERICARDIUM: Severe multivessel coronary calcifi cation. No pericardial thickening or effusion. Normal size heart. ADENOPATHY: No adenopathy. BASE OF NECK: No significant findings. UP PER ABDOMEN: Moderate abdominal aortic atherosclerosis without aneurysm al rachna the visualized segments. No acute upper abdominal findings. OTH ER INCIDENTALS: Mild to moderate thoracolumbar spondylosis without destruc tive bone lesions. Prior median sternotomy without dehiscence. IMPRESSION: 1. 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 2. Lung-RADS Category 2. Continue annual screening with LDCT in 12 months. 3. Atherosclerosis. Prior medi an sternotomy PAGE 1 Signed Report (CONTINUED) Name: KASHIF ARIAS [facility] [place] : 1955 Age/S: 63 / M [address] [place] [address] Blvd Unit #: [id number] Loc: [place] [address] [facility] s: Nida Weber MD Acct: [id number] Dis Date: Status: REG CLI PHONE #: [phone] Exam Date: 06/08/2019 1006 FAX #: [phone] Reason: [id number] PERSONAL HISTORY OF NICOTINE DEPENCE EXAMS: CPT CODE: [id number] CT LD LUNG CA SCREENING G0297 <Continued> 4. No acute upper abdominal findings. Category S -- Other findings requiring urgent evaluation?: No. FOR INTERNAL CODING PURPOSES ONLY RESULT CODE: L2 FOLLOW UP: L12 SL: MIKE at 1131 Reported and signed by: Rojas Thao M.D. CC: Liliam Chambers Jr, MD; Nida Weber MD Technologist:Cate Herman(Cate)(CT) CTDI: DLP: Trnscb Date/Time: 06/08/2019 (1131) t.SDR .ERR2 Orig Print D/T: S: 06/08/2019 (0217) PAGE 2 Signed Report XRAY Chest 2 views [id number] 17:10:00Clinical Indication: Coughing - Pre-OpComparison: 04/10/2018FINDINGS: PA and lateral views the chest are submitted for interpretation.There is a small stable calcified granuloma in the left midlung. The lungs areotherwise clear and there are no effusions. There is no visible pneumothorax.The cardiomediastinal contours are within normal limits. The patient is statuspost median sternotomy.There are no clinically significant osseous abnormalities noted.IMPRESSION:1. No radiographic evidence of acute cardiopulmonary process.SL: [id number] by: Flip Avendaño MDDictated Date/time: 05/15/18 17:39Electronically Signed by: Flip Avendaño MD 05/15/1817:40FINAL REPORTUnSalt Lake Behavioral [facility] Hospital PhysiciansXRAY Chest 2 views [id number] 13:40:00Two-view chest Patient Name: KASHIF Zhang PETTYDOB: 1955; Age: 62 years MaleMR: [id number]: Chest 2 views DX Order Time: 04/10/2018 12:52 PM CDTClinical Indication: Coughing - preop exam. COMPARISON: February 26, 2016. July 2014 x-rays back to August 15.FINDINGS:Views: 2LUNGS: There is increased lung volume. There are no suspiciousinterstitial/airspace opacities. There are no pleural effusions. There is nopneumothorax. The pulmonary vasculature is normal.MEDIASTINUM: Poststernotomy. The cardiac silhouette is normal. The trachea ismidline.BONES: There are no clinically significant osseous abnormalities noted.IMPRESSION:No radiographic evidence of acute pulmonary disease.SL: [id number] by: Jesus Samano MDDictated Date/time: 04/10/18 14:23Electronically Signed by : Jesus Medrano MD 04/10/1814:24FINAL REPORTUnSalt Lake Behavioral Health Hospital PhysiciansCTA Aorta with femoral runoff [id number] 12:30:00EXAM: CTA BILATERAL LOWER EXTREMITY WITH CONTRASTDATE: 02/11/2018 11:08 AM CDTIND ICATION: - I73.9 Peripheral vascular disease, unspecifiedADDITIONAL INFORMATI ON: None.COMPARISON: 05/26/2014.TECHNIQUE: Volumetric CT acquisition of the bil era lower extremityarteries. Axial, coronal and sagittal reconstructions. MIP r eformats arecreated at the acquisition workstation.FINDINGS:There is atheroscler otic disease of the aorta and its branches. There arepostoperative changes jax tible with an aortobifemoral bypass graft which ispatent. There is thrombus in t he left iliac limb which is new compared to theprior examination. The celiac axi s, SMA and single bilateral renal arteries arepatent. The origin of the MATT is p atent. X line The aorta measures as follows:2.2 cm at the aortic hiatus1.1 cm at the level of the renal arteriesThe arterial examination of the right lower extr emity is as follows:Common femoral artery: patentDeep femoral artery: patentSupe rficial femoral artery: occluded. There is an SFA stent which is occluded.There is reconstitution of the distal SFA below the stent.Popliteal artery: patent whi ch is very smallAnterior tibial artery: occluded, a few centimeters distal to it s originPosterior tibial artery: PatentPeroneal artery: Patent with severe proxi mal multifocal atherosclerotic diseaseThere are postoperative changes which are compatible with above the kneeamputation of the left lower extremity and a left common femoral artery todistal bypass graft which is occluded. The arterial exam ination of the leftlower extremities as follows:Common femoral artery: PatentDee p femoral artery: PatentSuperficial femoral artery including a stent are occlude d.The examination of the abdominal organs is as follows:Liver: Normal, gallbladd er: NormalSpleen: NormalPancreas: NormalAdrenals: NormalKidneys: NormalGI tract: NormalThe lung bases are clear bilaterally.The bones: There are degenerative ch anges in the lumbar spine.IMPRESSION:1. Patent aorto bifemoral bypass graft but with new thrombus formation in theleft iliac limb which is new compared to the l ast CTA.2. Occluded left SFA and left lower extremity bypass graft. The patient isstatus post left AKA.3. Occluded right SFA with distal reconstitution.4. Occlu ded right anterior tibial artery.--Read by: Kavitha Solorio MDDictated Osorio e/time: 02/11/18 14:41Electronically Signed by: Kavitha Solorio MD 02/11/1815:04FINAL REPORTUnSalt Lake Behavioral Health Hospital PhysiciansTobacco Use [id number] 16:00:00* Test Item Value Reference Range Interpretation Comments Completed (test code = Completed) DONE [facility]
--- OUTSIDE RECORDS SUMMARY | 2020-06-23 04:00 | XMS REPORT | Encounter Summary ---
Author Organization Unknown Address [address] [place] [address] Phone [phone] Care Team Providers Care Bankruptcy Processor Name Role Phone Dr. Surendra Chambers 3 [phone] Surendra Chambers Jr, MD 3 [phone] Nida Long MD 114 [phone] Nicholas Bradshaw MD (Cardiothoracic & Vascular Surgery) 122 [phone] Reason for Visit Left leg problem Instructions 1. 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 Amputated above knee 3. Phantom limb syndrome with pain Discussion Note: None recorded. Patient educational handouts: No information available. Plan of Care Reminders Provider Appointments None recorded. Lab None [...] BMI Blood Pressure 5 ft 2 in 111 lbs 20.3 kg/m2 (1) 180/100 mm[ Hg] (2) 178/94 mm[Hg] Lab Results None recorded. 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 External Procedures Date Name Performed by Amputation Information not avai lable Colonoscopy Information not avai lable 06/14/2019 XR, Lumbosacral Spine, 2 or 3 View [place] [facility] [address] [place] [address] (Work Place) Vaccine List Vaccine Type Influenza, injectable, MDCK, quadrivalen t 10/10/20170.5 mL influenza, injectable, quadrivalent 08/22/2016 influenza, injectable, quadrivalent, pre servative free 09/28/2018 pneumococcal polysaccharide PPV23 08/10/2012 Social History Smoking Status Light Tobacco Smoker (11/27 PPD) Past Encounters 06/15/2019 Benign Hypertensive Heart Disease and Chronic Renal Disease; Amputated above Knee; Phantom Limb Syndrome with Pain Surendra Chambers Jr, MD: [address], [address], [place] [address], Ph. 06/14/2019 Benign Hypertensive Heart Disease and Chronic Renal Disease; Coronary Arteriosclerosis; Chronic Kidney Disease Stage 3; Chronic Obstructive Lung Disease; Peripheral Vascular Disease; Benign Prostatic Hypertrophy without Outflow Obstruction; Gastroesophageal Reflux Disease; Seasonal Allergic Rhinitis; Screening for Malignant Neoplasm of Prostate; Cigarette Smoker; Inflammation of Sacroiliac Joint Surendra Chambers Jr, MD: [address], [address], [place] [address], Ph. History of Present Illness Musculoskeletal Pain Reported By: Patient HPI: Location: pain is not radiat ing. Quality: dull. Severity: worsening. Duration: present <1 month. Timing: constant. Alleviating factors: rest. Aggravating factors: movement/positioning. Associated Symptoms: no fever, no weak limbs, no tingling, no numbness of the legs/feet Review of Systems Comprehensive Adult Problem ROS Reported By: Patient Constitutional: Constitutional: no significa nt weight change, good appetite Cardiovascular: Cardiovascular: no chest young n Musculoskeletal: Musculoskeletal: no soft tis alice swelling, no joint swelling, myalgia Skin: Skin: no redness, no skin le sions, no swelling, no bruising Neurological symptoms: Neuro: no numbness, no weakn ess, no tingling Physical Exam Lower Leg, Musculoskeletal a nd Joint Exam Reported By: Patient Psychiatric: Orientation: oriented to yamile e, oriented to place, oriented to person Musculoskeletal System: Musculoskeletal System ben l range of motion in all peripheral joints
--- OUTSIDE RECORDS SUMMARY | 2020-06-23 04:00 | XMS REPORT | Encounter Summary ---
Author Organization Unknown Address [address] [place] [address] Phone [phone] Care Team Providers Care Drug Abuse Technician Name Role Phone Dr. Surendra Chambers 3 [phone] Surendra Chambers Jr, MD 3 [phone] Nida Long MD 114 [phone] Nicholas Bradshaw MD (Cardiothoracic & Vascular Surgery) 122 [phone] Reason for Visit hypertension; COPD Follow-up; arthritis Instructions 1. 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 Coronary arteriosclerosis 3. Chronic kidney disease stage 3 4. Cigarette smoker advised to quit smoking stopping smoking: care instructions deciding about using medicines to quit smoking 5. Chronic obstructive lung disease 6. Nicotine dependence stopping smoking: care instructions advised to quit smoking deciding about using medicines to quit smoking Discussion Note: None recorded. Plan of Care Reminders Provider Appointments Est Patient 06/14/2019 10:15AM Surendra cornejo Jr, MD Lab None recorded. Referral None [...] day by oral route for 90 days. ipratropium bromide/albuterol sulfate 0.5-2.5 (3) mg/3 ml soln ipratropium-albuterol 0.5 mg-3 mg(2.5 mg base)/3 mL [...] ft 2 in 116 lbs 21.2 kg/m2 (1) 180/100 mm[ Hg] (2) 150/92 mm[Hg] Lab Results None recorded. 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 External No Abnormality Detected - Examination Result Active External Procedures Date Name Performed by 09/02/2017 Colonoscopy Information not avai lable Amputation Information not avai lable 03/02/2019 XR, Chest, 2 View [facility] [address] [place] [address] (Work Place) 03/02/2019 XR, Hip, Unilateral, 2 or 3 View [facility] [id number] [place] [id number] (Work [address]) Vaccine List Vaccine Type Influenza, injectable, MDCK, quadrivalen t 10/10/20170.5 mL influenza, injectable, quadrivalent 08/22/2016 influenza, injectable, quadrivalent, pre servative free 09/28/2018 pneumococcal polysaccharide PPV23 08/10/2012 Social History Smoking Status Light Tobacco Smoker (1/4 PPD) Past Encounters 03/15/2019 Benign Hypertensive Heart Disease and Chronic Renal Disease; Coronary Arteriosclerosis; Chronic Kidney Disease Stage 3; Cigarette Smoker; Chronic Obstructive Lung Disease; Nicotine Dependence Surendra Chambers Jr, MD: [address], [address], [place] [address], Ph. 03/02/2019 Chronic Obstructive Lung Disease; Upper Respiratory Infection; Pleuritic Pain; Seasonal Allergy; Nicotine Dependence; Hip Pain Surendra Chambers Jr, MD: [address], [address], [place] [address], Ph. History of Present Illness Hypertension Reported By: Patient HPI: Severity: mild. Onset/Timing : gradual onset. Alleviating Factors: relieved with rest, medication. Self Care: not under emotional stress, blood pressure goal: 130/80. Associated Symptoms: no shortness of breath, no fatigue, no decline in exercise capacity COPD Follow-up Reported By: Patient Musculoskeletal Pain Reported By: Patient HPI: Location: pain is not radiat ing. Quality: dull. Severity: worsening. Duration: present <1 month. Timing: constant. Alleviating factors: rest. Aggravating factors: movement/positioning. Associated Symptoms: no fever, no weak limbs, no tingling, no numbness of the legs/feet Hyperlipidemia Reported By: Patient HPI: Type of hyperlipidemia: comb ined, hypercholesterolemia. Duration: chronic. Current Therapy: currently taking: atorvastatin, last LDL level: 94 date: 94. Compliance: compliant. Complications: coronary artery disease, cardiovascular disease. Risk Factors: hypertension Review of Systems Comprehensive General Adult ROS Reported By: Patient Constitutional: Constitutional: no significa nt weight gain, no significant weight loss Cardiovascular: Cardiovascular: no chest young n, no shortness of breath when walking Respiratory: Respiratory: no cough, no wh eezing, no shortness of breath Gastrointestinal: Gastrointestinal: normal evelyn etite Neurologic: Neurologic: no weakness, no numbness Endocrine: Endocrine: no fatigue Hematologic/Lymphatic: Hematologic/Lymphatic no bru ising Physical Exam General Adult Exam (male), M usculoskeletal and Joint Exam, Cardiology Exam Reported By: Patient Constitutional: [...] not heard. Diastolic Murmur: not heard Musculoskeletal:: Joints, Bones, and Muscles: normal movement of all extremities. Extremities: no cyanosis, no edema, no peripheral signs of emboli Skin: Inspection and palpation: wa rm and dry Back: Thoracolumbar Appearance: no chest wall tenderness
--- OUTSIDE RECORDS SUMMARY | 2020-06-23 04:00 | XMS REPORT | Encounter Summary ---
Author Organization Unknown Address [address] [place] [address] Phone [phone] Care Team Providers Care Volcanology Teacher Name Role Phone Dr. 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 History of Present Illness Mini Cog [...]
--- OUTSIDE RECORDS SUMMARY | 2020-06-23 04:00 | XMS REPORT | Encounter Summary ---
Author Organization Unknown Address [address] [place] [address] Phone [phone] Care Team Providers Care Cooling Tower Operator Name Role Phone Dr. Surendra Chambers 3 [phone] Surendra Chambers Jr, MD 3 [phone] Nida Long MD 114 [phone] Nicholas Bradshaw MD (Cardiothoracic & Vascular Surgery) 122 [phone] Reason for Visit hypertension Instructions 1. 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 Chronic kidney disease stage 3 3. Coronary arteriosclerosis cardiology referral 4. Recurrent major depression Discussion Note: None recorded. Patient educational handouts: No information available. Plan of Care Reminders Provider Appointments Est Patient 09/27/2019 9:00AM Surendra le Jr, MD Return to Office on or around 09/28/2019 Liliam Chambers Jr, MD Lab None recorded. Referral Cardiology Referral 06/28/2019 [facility] Procedures None recorded. Surgeries None recorded. Imaging [...] 1 tablet every day by oral route. famotidine 40 mg tablet Take 1 [...] a day by oral route as needed. Medications Administered None recorded. Vitals Height Weight BMI Blood Pressure 5 ft 2 in 106 lbs 19.4 kg/m2 (1) 120/82 mm[H g] (2) 120/80 mm[Hg] (3) 108/84 mm[Hg] Lab Results Date Name Specimen Result Interpretation Description Value Range Status Address 06/14/2019 CBC W/ Auto Diff Wbc 4.56 x10*3/L 4.2 3-9.07 x10*3/L Final [facility] Laboratory: [address] Low Rbc 4.10 10*12/L 4.63-6.08 10*12/L Final [facility] Laboratory: [address] Low Hemoglobin 12.80 g/dL 13.70-17.50 g/ dL Final [facility] Laboratory: [address] Low Hematocrit 38.7 % 40.1-51.0 % Final [facility] Laboratory: [address] Mcv 94.4 fL 80.0-100.0 fL [facility] [address] Mch 31.2 pg 25.7-32.2 pg Final Sukhjinder darren [facility] Laboratory: [address] Mchc 33.1 g/dL 32.3-36.5 g/dL Final [facility] Laboratory: [address] High RDW-SD 51.8 fL 35.1-43.9 fL Final V [facility] Laboratory: [address] [place] [address] Platelet Count 238.0 k/uL 163.0-337. 0 k/uL Final [facility] Laboratory: [address] High Mpv 11.8 fL 7.5-11.5 fL Final [facility] Laboratory: [address] [place] Neut% 56.0 % 34.0-67.9 % Final [facility] Laboratory: [address] [place] Lymph% 33.3 % 21.8-53.1 % Final [facility] Laboratory: [address] [place] Mon% 9.4 % 5.3-12.2 % Final [facility] Laboratory: [address] [place] Eos% 1.1 % 0.8-7.0 % Final [facility] Laboratory: [address] [place] Baso% 0.2 % 0.2-1.2 % Final [facility] Laboratory: [address] [place] Neut# 2.6 x10*3/L 1.8-5.4 x10*3/L Final [facility] Laboratory: [address] [place] Lymph# 1.5 x10*3/L 1.3-3.6 x10*3/L Final [facility] Laboratory: [address] [place] Mon# 0.4 x10*3/L 0.3-0.8 x10*3/L [facility] Laboratory: [address] [place] Eos# 0.05 x10*3/L 0.04-0.54 x10*3/ L Final [facility] Laboratory: [address] [place] Baso# 0.01 x10*3/L 0.01-0.08 x10*3/ L Final [facility] Laboratory: [address] [place] 06/14/2019 CMP, Serum or Plasma Alt 28 U/L 0-55 U /L Final [facility] Laboratory: [address] [place] Ast 28 U/L 5-34 U/L Final [facility] Laboratory: [address] [place] Bun 16.7 mg/dL 8.4-25.0 mg/dL Final [facility] Laboratory: [address] [place] Alk Phos 102 unit/L 40-150 unit/L [facility] Laboratory: [address] [place] [place] [address] Glucose 87 mg/dL 70-99 mg/dL Final [facility] Laboratory: [address] Albumin 3.6 g/dL 3.4-5.1 g/dL [facility] Laboratory: [address] [place] [address], [place] Creatinine 1.19 mg/dL 0.72-1.25 mg/d L [facility] Laboratory: [address] eGFR Non- >60 mL/mi n/1.73m2 [facility] Laboratory: [address] Total Bilirubin 0.3 mg/dL 0.2-1.2 mg /dL [facility] Laboratory: [address] eGFR - >60 mL/min/1 .73m2 [facility] Laboratory: [address] [place] [place] [address] Sodium 141 mEq/L 135-145 mEq/L [facility] Laboratory: [address] Potassium 4.9 mEq/L 3.5-5.1 mEq/L [facility] Laboratory: [address] Chloride 107 mmol/L 98-110 mmol/L [facility] Laboratory: [address] Total Protein 6.7 g/dL 6.1-8.2 g/dL [facility] Laboratory: [address] [place] [place] [address] Calcium 9.2 mg/dL 9.0-10.2 mg/dL [facility] Laboratory: [address] Co2 27.3 mmol/L 20.0-32.0 mmol/L [facility] Laboratory: [address] Anion Gap 7 calc [facility] Laboratory: [address] [place] [place] [address] 06/14/2019 Lipid Panel, Serum Hdl 59 mg/dL [facility] Laboratory: [address] [place] [address], [place] Triglyceride 85 mg/dL 0-150 mg/dL [facility] Laboratory: [address] VLDL (Calculated) 17 mg/dL [facility] Laboratory: [address] cholesterol/HDL Ratio 2.4 mg/dL Final [facility] Laboratory: [address] [place] [address] [place] non-HDL Cholesterol (Calculated) 84 mg/dL 0-160 mg/dL Final [facility] Laboratory: [address] Cholesterol 143 mg/dL 0-200 mg/dL [facility] Laboratory: [address] [place] [address] [place] LDL (Calculated) 67 mg/dL 0-130 mg/d L [facility] Laboratory: [address] 06/14/2019 PSA, Serum or Plasma PSA, Total 0.1 7 NG/mL 0.00-4.00 NG/mL Final [facility] Laboratory: [address] [place] [address] [place] Allergies Code Code System Name Reaction Severity Status Onset Blue Dye Itching Moderate to Severe Active 113498 RxNorm Demerol Active 5933 RxNorm Iodine Active [...] Active 06/29/2018 Left Ventricular Hypertrophy Active 07/30/2018 Recurrent Major Depression Active 06/28/2019 Atherosclerosis of Aorta Active Externa l Intermittent Claudication Active 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 al 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 External Procedures Date Name Performed by Amputation Information not avai lable Colonoscopy Information not avai lable 06/14/2019 XR, Lumbosacral Spine, 2 or 3 View [facility] [address] [place] [address] (Work [address]) Vaccine List Vaccine Type Influenza, injectable, MDCK, quadrivalen t 10/10/20170.5 mL influenza, injectable, quadrivalent 08/22/2016 influenza, injectable, quadrivalent, pre servative free 09/28/2018 pneumococcal polysaccharide PPV23 08/10/2012 Social History Tobacco Smoking Status Light Tobacco Smoker (11/27 PPD) Past Encounters 06/28/2019 Benign Hypertensive Heart Disease and Chronic Renal Disease; Chronic Kidney Disease Stage 3; Coronary Arteriosclerosis; Recurrent Major Depression Surendra Chambers Jr, MD: [address], [address], [place] [address], Ph. 06/15/2019 Benign Hypertensive Heart Disease and Chronic Renal Disease; Amputated above Knee; Phantom Limb Syndrome with Pain Surendra Chambers Jr, MD: [address], [address], [place] [address], Ph. 06/14/2019 Benign Hypertensive Heart Disease and Chronic Renal Disease; Coronary Arteriosclerosis; Chronic Kidney Disease Stage 3; Chronic Obstructive Lung Disease; Peripheral Vascular Disease; Benign Prostatic Hypertrophy without Outflow Obstruction; Gastroesophageal Reflux Disease; Seasonal Allergic Rhinitis; Screening for Malignant Neoplasm of Prostate; Cigarette Smoker; Inflammation of Sacroiliac Joint Surendra Chambers Jr, MD: [address], [address], [place] [address], Ph. History of Present Illness Hypertension Reported By: Patient HPI: Severity: mild. Onset/Timing : gradual onset. Alleviating Factors: relieved with rest, medication. Self Care: not under emotional stress, blood pressure goal: 130/80. Associated Symptoms: no shortness of breath, no fatigue, no decline in exercise capacity Hyperlipidemia Reported By: Patient HPI: Type of [...]
--- OUTSIDE RECORDS SUMMARY | 2020-06-23 04:01 | XMS REPORT | Encounter Summary ---
Author Organization Unknown Address [address] [place] [address] Phone [phone] Care Team Providers Care Electric Tripper Machine Operator Name Role Phone Dr. Surendra Chambers 3 [phone] Surendra Chambers Jr, MD 3 [phone] Marta Mohanom 61 Unavailable Nida Long MD 114 [phone] Nicholas Bradshaw MD (Cardiothoracic & Vascular Surgery) 122 [phone] Reason for Visit Benign hypertensive heart disease and ch ronic renal disease; Chronic kidney disease stage 3; History of coronary artery bypass grafting; Telemedicine Visit Instructions 1. 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 Chronic kidney disease stage 3 3. Jaundice 4. History of coronary artery bypass gra fting Discussion Note: None recorded. Patient educational handouts: No information available. Plan of Care Reminders Provider Appointments Return to Office on or around 04/24/2020 Liliam Chambers Jr, MD Lab None recorded. Referral None recorded. Procedures None recorded. Surgeries None recorded. Imaging None recorded. Medications Name Start Date albuterol sulfate HFA 90 mcg/actuation a erosol inhaler Inhale 2 puffs every 4 hours by inhalation route as needed for 90 days. atorvastatin 20 mg tablet Take 1 tablet every day by oral route. Jagruti Aspirin 81 MG - QD Benadryl Allergy 25 mg tablet QD OTC Breo Ellipta 100 mcg-25 mcg/dose powder for inhalation bupropion HCl SR 150 mg tablet,12 hr farheen tained-release Take 1 tablet twice a day by oral route for 90 days. carvedilol 12.5 mg tablet Take 1 tablet twice a day by oral route. cetirizine 10 mg tablet Take 1 tablet every day by oral route. clopidogrel 75 mg tablet TAKE ONE TABLET BY MOUTH DAILY doxycycline hyclate 100 mg tablet Take 1 tablet twice a day by oral route for 10 days. famotidine 40 mg tablet Take 1 tablet every day by oral route. finasteride 5 mg tablet Take 1 tablet every day by oral route. gabapentin 300 mg capsule Take 2 capsules 3 times a day by oral route for 90 days. ipratropium 0.5 mg-albuterol 3 mg (2.5 m g base)/3 mL nebulization soln Inhale 3 mL every day by nebulization route for 1 day. Myrbetriq 50 mg tablet,extended release Take 1 tablet every day by oral route. prednisone 20 mg tablet Take 2 tablets every day by oral route in the morning for 10 days. tamsulosin 0.4 mg capsule Take 1 capsule every day by oral route. tramadol 50 mg tablet Take 1 tablet twice a day by oral route as needed for 60 days. Trelegy Ellipta 100 mcg-62.5 mcg-25 mcg powder for inh alation valsartan 80 mg tablet DAILY Medications Administered None recorded. Vitals None recorded. Results Lab Results None recorded. Allergies Code Code System Name Reaction Severity Status Onset Blue Dye Itching Moderate to Severe Active 552195 RxNorm Demerol Active 5933 RxNorm Iodine Active [...] Long-term Current Use of Anticoagulant Active 8 Left Ventricular Hypertrophy Active 07/30/2018 Recurrent Major Depression Active 06/28/2019 Lumbar Spondylosis Active 06/28/2019 Scoliosis Deformity of Spine Active 06/28/2019 Arthritis of Facet Joint of Lumbar Spine Active 019 Phantom Limb Syndrome with Pain Active 10/07/2019 Single Hyalinizing Granuloma of Lung Active 11/05/2019 Anemia in Chronic Kidney Disease Active 01/08/2020 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 04/10/2020 Femoral-popliteal Artery Bypass Graft Active 04/10/2020 Atherosclerosis of Aorta Active Intermittent Claudication Active 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 Procedures Date Name Performed by Amputation Information not avai lable Colonoscopy Information not avai lable Vaccine List Vaccine Type Influenza, injectable, MDCK, quadrivalen t 10/10/20170.5 mL influenza, injectable, quadrivalent 08/22/2016 influenza, injectable, quadrivalent, pre servative free 09/28/2018 influenza, recombinant, quadrIvalent,inj ectable, preservative free 10/07/20190.5 mL pneumococcal polysaccharide PPV23 08/10/2012 Social History Tobacco Smoking Status Light Tobacco Smoker (11/27 PPD) Past Encounters 04/10/2020 Benign Hypertensive Heart Disease and Chronic Renal Disease; Chronic Kidney Disease Stage 3; Jaundice; History of Coronary Artery Bypass Grafting Surendra Chambers Jr, MD: [address] [facility] [address], [place] [address], Ph. 04/06/2020 Chronic Obstructive Lung Disease Marta Hilary: [address] [facility], [address], [place] [address], Ph. 04/06/2020 Benign Prostatic Hypertrophy without Outflow Obstruction; Chronic Obstructive Lung Disease; Benign Hypertensive Heart Disease and Chronic Renal Disease Surendra Chambers Jr, MD: [address], [address], [place] [address], Ph. 03/13/2020 Benign Hypertensive Heart Disease and Chronic Renal Disease; Acute Exacerbation of Chronic Obstructive Airways Disease; Fungal Infection of Lung; Cigarette Smoker Surendra Chambers Jr, MD: [address] [facility], [address], [place] [address], Ph. History of Present Illness Hypertension Reported [...] Therapy: currently taking: atorvastatin, last LDL level: 67 date: . Complications: coronary artery disease, peripheral artery disease, cardiovascular disease. Risk Factors: hypertension Hypertension Reported By: Patient Note:I confirm that I received verbal consent from the patient for the virtual visit.
This telemedicine encounter was performed using live {{video and audio*|audio only}}.
<b>(for audio only)</b> Total time spent with patient: {{ }} minutes.

{{Yes|No}} Review of Systems Comprehensive General Adult ROS Reported By: Patient Constitutional: Constitutional: no fever, no night sweats, no significant weight gain, no significant weight loss Eyes: Eyes: no vision change ENMT: Ears: no difficulty hearing, no ear pain. Mouth/Throat: no sore throat Cardiovascular: Cardiovascular: no chest young n, no shortness of breath when walking Gastrointestinal: Gastrointestinal: no nausea, no diarrhea Musculoskeletal: Musculoskeletal: no arthralg ias/joint pain Integumentary: Skin: no rashes Endocrine: Endocrine: fatigue Allergic/Immunologic: Allergy/Immunologic: no runn y nose, no sinus pressure Physical Exam Upper Respiratory Infection Exam Comprehensive, Neurology Exam, Telemedicine/Virtual Visit Reported By: Patient Constitutional: General Appearance in no acu te distress Head: Sinuses no tenderness. Size/ Trauma: normocephalic Eyes: Pupils EOM intact, PERRLA, c onjunctiva non-injected; mild jaundice appreciated Ears: Right External auditory renetta l normal appearance, no obstruction, no erythema, no discharge. Left External auditory canal normal appearance, no obstruction, no erythema, no discharge. Right Tympanic membrane landmarks clear. Left Tympanic membrane: landmarks clear Nose: Nasal Skin: no lesion, no la cerations. Nasal Mucosa normal, pink and moist Oral Cavity/Mouth: Lips, teeth, gums normal lip s, normal gums. Oral Mucosa: normal, moist, no lesions. Tongue: normal tongue. Tonsils: normal tonsils, no lesions. Posterior pharynx: normal Lymph Nodes: Cervical no palpable lymph n ode enlargement Neck: Neck symmetrical, trachea mi dline Constitutional: Weight: well-nourished. Ambu lation: ambulates independently Mental Status: Orientation oriented to pers on, oriented to place, oriented to time. Mood/Affect: appropriate mood, appropriate affect. Language: has spontaneous speech. Memory: recent memory intact, remote memory intact. Fund of Knowledge: current events, past history"
--- OUTSIDE RECORDS SUMMARY | 2020-06-23 04:01 | XMS REPORT | Encounter Summary ---
Author Organization Unknown Address [address] [place] [address] Phone [phone] Care Team Providers Care Robotic Machine Tender Production Name Role Phone Dr. Surendra Chambers 3 [phone] Surendra Chambers Jr, MD 3 [phone] Marta Mohanom 63 Unavailable Nida Long MD 114 [phone] Nicholas Bradshaw MD (Cardiothoracic & Vascular Surgery) 122 [phone] Reason for Visit URI; Telemed URI/LRI test; Telemedicine Visit Instructions 1. 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 Acute exacerbation of chronic obstruc tive airways disease doxycycline hyclate 100 mg tablet prednisone 20 mg tablet 3. Fungal infection of lung 4. Cigarette smoker advised to quit smoking stopping smoking: care instructions deciding about using medicines to quit smoking Discussion Note: None recorded. Plan of Care Reminders Provider Appointments Return to Office on or around 03/23/2020 Liliam Chambers Jr, MD Est Patient 04/06/2020 10:00AM Surendra cornejo Jr, MD Lab None recorded. Referral None recorded. Procedures None recorded. Surgeries None recorded. Imaging None recorded. Medications Name Start Date atorvastatin 20 mg tablet Take 1 tablet [...] inhalation route as needed for 90 days. tamsulosin 0.4 mg capsule Take 1 capsule every day by oral route. tramadol 50 mg tablet Take 1 tablet twice a day by oral route as needed for 60 days. valsartan 80 mg tablet DAILY Medications Administered None recorded. Vitals None recorded. Results Lab Results Date Name Specimen Result Interpretation Description Value Range Status Address 02/15/2020 HbA1C (Hemoglobin a1C), Blood No observat ion recorded. [facility]: [address] [facility] 02/15/2020 Lipid Panel, Serum No observation recorde d. [facility]: [address] [facility] 02/15/2020 CMP, Serum or Plasma No observation recor ded. [facility]: [address] [facility] Allergies Code Code System Name Reaction Severity Status Onset Blue Dye Itching Moderate to Severe Active 018765 RxNorm Demerol Active 5933 RxNorm Iodine Active [...] Anemia in Chronic Kidney Disease Active 01/08/2020 Atherosclerosis of Aorta Active Intermittent Claudication Active [...] Light Tobacco Smoker (11/27 PPD) Past Encounters 03/13/2020 Benign Hypertensive Heart Disease and Chronic Renal Disease; Acute Exacerbation of Chronic Obstructive Airways Disease; Fungal Infection of Lung; Cigarette Smoker Surendra Chambers Jr, MD: [address] [facility], [facility], [place] [address], Ph. 02/22/2020 Fungal Infection of Lung; Chronic Obstructive Lung Disease; Cigarette Smoker Surendra Chambers Jr, MD: [address], [facility], [place] [address], Ph. History of Present Illness URI Reported By: Patient Upper Respiratory Symptoms: Onset/Timing: gradual. Dur ation: constant. Location: head, throat. Quality: no sore throat, nasal congestion/discharge, dry cough. Severity: moderate. Context: no sick contacts, no foreign travel. Associated Symptoms: no fever, no chills, no shortness of breath, no wheezing, no significant weight loss, no diarrhea, no nausea Note:I confirm that I received verbal consent from the patient for the virtual visit. Review of Systems Comprehensive General Adult ROS [...] Upper Respiratory Infection Exam Comprehensive, Neurology Exam, Upper Respiratory Infection Exam, Telemedicine/Virtual Visit Reported By: Patient Head: Size/Trauma: normocephalic Constitutional: Weight: well-nourished. Ambu lation: ambulates independently Mental Status: Orientation oriented to pers on, oriented to place, oriented to time. Mood/Affect: appropriate mood, appropriate affect. Language: has spontaneous speech. Memory: recent memory intact, remote memory intact. Fund of Knowledge: current events, past history
--- OUTSIDE RECORDS SUMMARY | 2020-06-23 04:01 | XMS REPORT | Summary of Care ---
Author Author CAITY Lemus, KASHIF CLIFFORD Organization Unknown Address Unknown Phone Unavailable Care Team Providers Care Coppersmith Apprentice Name Role Phone MARY Lemus, CRYSTAL Unavailable Unavailable CAITY Lemus, DODIE Unavailable Unavailable CHRISTIANE GORMAN MD, BENNIE Unavailable Unavailable CAITY HINTON [place], DODIE Unavailable Unavailable JATIN CORNELL MD Unavailable Unavailable LOLITA HINTON, VASHTI Unavailable Unavailable Unavailable Unavailable Functional Status Name Dates Details Functional status health issues are not documented Status: Name Dates Details Cognitive status health issues are not d ocumented Status: Problems Name Dates Details Normal routine physical examination (V70 .0, Z00.00) Status: Active Atherosclerosis of aorta (440.0, I70.0) Status: Active Intermittent claudication (443.9, I73.9) Status: Active Above knee amputation status (V49.76, Z8 9.619) Status: Active Encounter for smoking cessation counseli mia (V65.42, Z71.6) Status: Active Peripheral vascular disease (443.9, I73. 9) Status: Active Medications Name Dates Details Plavix 75 MG Oral Tablet Active Lipitor 20 MG Oral Tablet * Refills: 0 Active Metoprolol Succinate ER 100 MG Oral Tablet Extended Release 24 Hour * Refills: 0 Active Lisinopril 10 MG Oral Tablet * Refills: 0 Active Aspirin 325 MG Oral Tablet * Refills: 0 Active Nitrolingual 0.4 MG/SPRAY Translingual Solution * Refills: 0 Active Hydrocodone-Acetaminophen 5-500 MG TABS TAKE 1 TO 2 TABLETS EVERY 4 TO 6 HOURS NEEDED FOR PAIN. * Quantity: 90 Refills: 0 CRYSTAL HERNANDEZ M.D. * Start : 22-Mar-2011 Active Allergies and Adverse Reactions Name Dates Details Darvocet-N 100 TABS (Allergy) Status: Ac tive Iodine SOLN (Allergy) Status: Active Past Medical History Name Dates Details History of Atherosclerosis (440.9, I70.9 0) Status: Resolved History of Coronary Artery Disease (V12. 59) Status: Resolved History of essential hypertension (V12.5 9, Z86.79) Status: Resolved History of hyperlipidemia (V12.29, Z86.3 9) Status: Resolved Procedures Procedure Dates Details History of Cath Stent Placement Complete d History of CABG Completed Immunization Name Dates Details Immunizations not documented Social History Name Dates Details - Status: Name Dates Details Smoker. current status unknown Vital Signs Date Test Result Details [id number]-[id number] BP Systolic 102 mm[Hg] Status: BP Diastolic 69 mm[Hg] Status: Height 62 in Status: Weight 115 lb Status: Body Mass Index Calculated 21.03 kg/m2 Status: Body Surface Area Calculated 1.51 m2 Status: Results Date Description Value Details Results not documented Plan of Care Name Dates Details Planned Observations Planned Goals not documented Interventions Provided Instructions* You need to quit smoking.; Done: 20 Dec 2019 Plan* I will see him again in 6 months for repeat aorta and lower extremity arterial studies. He may need to consult a pain doctor for his left AKA stump pain. Instructions Name Dates Details Instructions not documented Encounters Appointment; DR CAITY RAMIREZ Encounter Diagnosis: Problem not documented On: 12-Jan-2018 9:00 Appointment; DODIE CAROLINA M.D. Encounter Diagnosis: Problem not documented On: 12-Jan-2018 10:00 Appointment; DODIE CAROLINA M.D. Encounter Diagnosis: Problem not documented On: 23-Feb-2018 10:15 Appointment; DR CAITY RAMIREZ Encounter Diagnosis: Problem not documented On: 04-May-2018 15:00 Appointment; DODIE CAROLINA M.D. Encounter Diagnosis: Problem not documented On: 04-May-2018 16:00 Appointment; DODIE CAROLINA M.D. Encounter Diagnosis: Problem not documented On: 01-Jun-2018 9:45 Appointment; DR CAITY RAMIREZ Encounter Diagnosis: Problem not documented On: 13-Jul-2018 9:00 Appointment; DODIE CAROLINA M.D. Encounter Diagnosis: Problem not documented On: 13-Jul-2018 10:15 Appointment; DR CAITY RAMIREZ Encounter Diagnosis: Problem not documented On: 02-Sep-2018 12:00 Appointment; DODIE CAROLINA M.D. Encounter Diagnosis: Problem not documented On: 07-Sep-2018 10:45 Appointment; DR CAITY RAMIREZ Encounter Diagnosis: Problem not documented On: 26-Apr-2019 7:00 Appointment; DODIE CAROLINA M.D. Encounter Diagnosis: Problem not documented On: 26-Apr-2019 9:00 Appointment; DR CAITY RAMIREZ Encounter Diagnosis: Problem not documented On: 15-Dec-2019 10:30 Appointment; DODIE CAROLINA M.D. Encounter Diagnosis: Problem not documented On: 20-Dec-2019 9:15
--- OUTSIDE RECORDS SUMMARY | 2020-06-23 04:01 | XMS REPORT | Encounter Summary ---
Author Organization Unknown Address [address] [place] [address] Phone [phone] Care Team Providers Care Physician Practice Coordinator Name Role Phone Dr. Surendra Chambers 3 [phone] Surendra Chambers Jr, MD 3 [phone] Nida Long MD 114 [phone] Nicholas Bradshaw MD (Cardiothoracic & Vascular Surgery) 122 [phone] Reason for Visit hospital follow up - TCM (DAVINA) Instructions 1. Benign hypertensive heart disease and chronic renal disease atorvastatin 20 mg tablet carvedilol 12.5 mg tablet 2. Chronic kidney disease stage 3 3. Coronary arteriosclerosis clopidogrel 75 mg tablet 4. Chronic obstructive lung disease ProAir HFA 90 mcg/actuation aerosol in haler doxycycline hyclate 100 mg tablet prednisone 20 mg tablet Breo Ellipta 100 mcg-25 mcg/dose powde r for inhalation 5. Amputated above knee 6. Peripheral vascular disease gabapentin 300 mg capsule 7. Recurrent major depression 8. Depression screening learning about depression 9. Gastroesophageal reflux disease famotidine 40 mg tablet 10. Benign prostatic hypertrophy without outflow obstruction finasteride 5 mg tablet tamsulosin 0.4 mg capsule 11. Arthritis of facet joint of lumbar s pine tramadol 50 mg tablet Discussion Note: None recorded. Plan of Care Patient Instructions Thank you for scheduling your post hospi siva visit. Please let us know if you need help in scheduling follow up tests or specialist visits. Knowing what medicines to keep taking and which to ones to stop after a hospital stay can be confusing. Contact your physicians with your questions about what medications you should be taking. Our [facility] can also help you in this area. Contact them at . [facility] can help you choose the best Home Health agency. We can also help you with social and political studies professor and community resources. Call us we are here to help. If you experience any new or concerning symptoms, call us immediately at . Evening and Friday clinic hours are now available. If you have problems after hours, you can reach the [facility] doctor learning operations specialist at [phone] . Please follow up with your doctor in four weeks. Reminders Provider Appointments Est Patient 01/06/2020 10:15AM Surendra cornejo Jr, MD Lab None [...] day by oral route for 10 days. COPD RESCUE PACK: Start taking if your coughing and shortness of breath get worse, or you start coughing up yellow or green phlegm famotidine 40 mg tablet Take 1 tablet [...] route in the morning for 10 days. COPD RESCUE PACK: Start taking if your coughing and shortness of breath get worse, or you start coughing up yellow or green phlegm ProAir HFA 90 mcg/actuation aerosol inha ler Inhale 2 puffs every 4 hours by inhalation route for 90 days. tamsulosin 0.4 mg capsule Take 1 capsule every day by oral route. tramadol 50 mg tablet Take 1 tablet twice a day by oral route as needed for 60 days. Medications Administered None recorded. Vitals Height Weight BMI Blood Pressure 5 ft 2 in 114 lbs 20.9 kg/m2 (1) 152/92 mm[H g] (2) 126/84 mm[Hg] Results Lab Results Date Name Specimen Result Interpretation Description Value Range Status Address Rapid Flu (A+B) Type Flu a negative [facility]: [address] [facility], [place] Type Flu B negative Vm _hou_hobby: [address] [facility] [address], [place] Allergies Code Code System Name Reaction Severity Status Onset Blue Dye Itching Moderate to Severe Active 507760 RxNorm Demerol Active 5933 RxNorm Iodine Active [...] Single Hyalinizing Granuloma of Lung Active 11/05/2019 Atherosclerosis of Aorta Active Intermittent Claudication Active 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 Procedures Date Name Performed by Amputation Information not avai lable Colonoscopy Information not avai lable 11/02/2019 XR, Chest, 2 View [facility] [address] [place] [address] ([address]) 11/02/2019 XR, Chest, 2 View [facility] [address] [place], [place] [id number] (Work Place) Vaccine List Vaccine Type Influenza, injectable, MDCK, quadrivalen t 10/10/20170.5 mL influenza, injectable, quadrivalent 08/22/2016 influenza, injectable, quadrivalent, pre servative free 09/28/2018 influenza, recombinant, quadrIvalent,inj ectable, preservative free 10/07/20190.5 mL pneumococcal polysaccharide PPV23 08/10/2012 Social History Tobacco Smoking Status Light Tobacco Smoker (/ PPD) Past Encounters 11/30/2019 Benign Hypertensive Heart Disease and Chronic Renal Disease; Chronic Kidney Disease Stage 3; Coronary Arteriosclerosis; Chronic Obstructive Lung Disease; Amputated above Knee; Peripheral Vascular Disease; Recurrent Major Depression; Depression Screening; Gastroesophageal Reflux Disease; Benign Prostatic Hypertrophy without Outflow Obstruction; Arthritis of Facet Joint of Lumbar Spine Surendra Chambers Jr, MD: [address], [address], [place] [address], Ph. 11/02/2019 Benign Hypertensive Heart Disease and Chronic Renal Disease; Coronary Arteriosclerosis; Chronic Kidney Disease Stage 3; Upper Respiratory Infection; Acute Exacerbation of Chronic Obstructive Airways Disease; Allergic Rhinitis Surendra Chambers Jr, MD: [address], [address], [place] [address], Ph. History of Present Illness Hospital Follow Up (TCM) Reported By: Patient Notes: CAP Review of Systems Comprehensive General Adult ROS [...] Allergic/Immunologic: Allergy/Immunologic: runny n ose Physical Exam General Adult Exam (male), U pper Respiratory Infection Exam Comprehensive Reported By: Patient Constitutional: General Appearance: in no ac hiram distress ENMT: Nose: no lesions on external nose, no sinus tenderness, normal, pink and moist. Nasal Skin: no lacerations Neck: Neck: trachea midline, symme trical Lungs: Auscultation: no wheezing, n o rales/crackles, no rhonchi, decreased breath sounds, diminished air movement Cardiovascular: Heart Auscultation: no murmu rs, no rubs. Auscultation regular rate and rhythm Ears: Right External auditory renetta l normal appearance, no erythema. Left External auditory canal normal appearance, no erythema. Right Tympanic membrane dull, bulging. Left Tympanic membrane: dull, bulging Oral Cavity/Mouth: Oral Mucosa: normal, moist, no lesions. Posterior pharynx: lymphoid hyperplasia (cobblestoning) Lymph Nodes: Cervical no palpable lymph n ode enlargement
--- OUTSIDE RECORDS SUMMARY | 2020-06-23 04:01 | XMS REPORT | Encounter Summary ---
Author Organization Unknown Address [address] [place] [address] Phone [phone] Care Team Providers Care Supervisor Warping Department Name Role Phone Dr. Surendra Chambers 3 [phone] Surendra Chambers Jr, MD 3 [phone] Marta Mohanom 63 Unavailable Nida Long MD 114 [phone] Nicholas Bradshaw MD (Cardiothoracic & Vascular Surgery) 122 [phone] Reason for Visit chronic care management Instructions 1. Chronic obstructive lung disease Discussion Note: None recorded. Patient educational handouts: No information available. Plan of Care Reminders Provider Appointments Telemedicine 15 05/01/2020 9:30AM Surendra le Jr, MD Lab None recorded. [...] Blue Dye Itching Moderate to Severe Active 459232 RxNorm Demerol Active 5933 RxNorm Iodine Active [...] History Tobacco Smoking Status Light Tobacco Smoker (1/4 PPD) Past Encounters 04/10/2020 Benign Hypertensive Heart Disease and Chronic Renal Disease; Chronic Kidney Disease Stage 3; Jaundice; History of Coronary Artery Bypass Grafting Surendra Chambers Jr, MD: [address], [email or web address] [address], [place] [address], Ph. 04/06/2020 Chronic Obstructive Lung Disease Surendra Chambers Jr, MD: [address] [facility], [address], [place] [address], Ph. 04/06/2020 Benign Prostatic Hypertrophy without Outflow Obstruction; Chronic Obstructive Lung Disease; Benign Hypertensive Heart Disease and Chronic Renal Disease Surendra Chambers Jr, MD: [address], [facility] [[email or web address] [address], [place] [address], Ph. 03/13/2020 Benign Hypertensive Heart Disease and Chronic Renal Disease; Acute Exacerbation of Chronic Obstructive Airways Disease; Fungal Infection of Lung; Cigarette Smoker Surendra Chambers Jr, MD: [address], [facility] [[email or web address] [address], [place] [address], Ph. History of Present Illness Note:Ramiro Willis, KELSIE 04/06/2020 10 min<div>PCS Called and Introduced to patient. Patient completed COPD 02/23/2020. Will follow up with patient to complete next COPD assessment within 11 week timeframe. Patient consented to receiving calls every 2-3 weeks. </div> Review of Systems None recorded. Physical Exam None recorded.
--- OUTSIDE RECORDS SUMMARY | 2020-06-23 04:01 | XMS REPORT | Encounter Summary ---
Author Organization Unknown Address [address] [place] [address] Phone [phone] Care Team Providers Care Library Aide Name Role Phone Dr. Surendra Chambers 3 [phone] Surendra Chambers Jr, MD 3 [phone] Nida Long MD 114 [phone] Nicholas Bradshaw MD (Cardiothoracic & Vascular Surgery) 122 [phone] Reason for Visit Anemia in chronic kidney disease Instructions 1. 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 Chronic kidney disease stage 3 3. Anemia in chronic kidney disease 4. Acute exacerbation of chronic obstruc tive airways disease doxycycline hyclate 100 mg tablet prednisone 20 mg tablet care management referral ipratropium 0.5 mg-albuterol 3 mg (2.5 mg base)/3 mL nebulization soln Discussion Note: None recorded. Patient educational handouts: No information available. Plan of Care Reminders Provider Appointments Est Patient 04/06/2020 10:00AM Surendra cornejo Jr, MD Lab None recorded. Referral Care Management Referral 01/14/2020 Procedures None recorded. Surgeries None recorded. Imaging None recorded. Medications Name Start Date albuterol sulfate HFA 90 mcg/actuation a erosol inhaler Inhale 2 puffs every 4 hours by inhalation route for 90 days. aspirin 81 mg chewable tablet Chew 1 tablet every day by oral route for 90 days. atorvastatin 20 mg tablet Take 1 tablet every day by oral route. Breo Ellipta 100 mcg-25 mcg/dose powder for inhalation carvedilol 12.5 mg tablet Take 1 tablet [...] m g base)/3 mL nebulization soln Inhale 1 mL every day by nebulization route for 1 day. Myrbetriq 50 mg tablet,extended release Take 1 tablet every day by oral route. prednisone 20 mg tablet Take 2 tablets every day by oral route in the morning for 10 days. sulfamethoxazole 800 mg-trimethoprim 160 mg tablet Take 1 tablet twice a day by oral route for 10 days. tamsulosin 0.4 mg capsule Take 1 capsule every day by oral route. tramadol 50 mg tablet Take 1 tablet twice a day by oral route as needed for 60 days. Trelegy Ellipta 100 mcg-62.5 mcg-25 mcg powder for inhalation Inhale 1 puff every day by inhalation route for 90 days. Medications Administered None recorded. Vitals Height Weight BMI Blood Pressure 5 ft 2 in 115 lbs 21 kg/m2 132/74 mm[Hg] Results Lab Results Date Name Specimen Result Interpretation Description Value Range Status Address 01/06/2020 CMP, Serum or Plasma Alt 38 U/L 0-55 U /L [facility] - Laboratory: [address] Ast 31 U/L 5-34 U/L Final [facility] - Laboratory: [address] Bun 14.6 mg/dL 8.4-25.0 mg/dL [facility] - Laboratory: [address] Alk Phos 76 unit/L 40-150 unit/L [facility] - Laboratory: [address] [place] [address], [place] Glucose 78 mg/dL 70-99 mg/dL [facility] - Laboratory: [address] [place] [address], [place] Albumin 3.5 g/dL 3.4-5.1 g/dL Final [facility] - Laboratory: [address] Creatinine 1.25 mg/dL 0.72-1.25 mg/d L [facility] - Laboratory: [address] [place] [address], [place] ABNORMAL eGFR Non- 59 mL/m in/1.73m2 Final [facility] - Laboratory: [address], [place] Total Bilirubin 0.2 mg/dL 0.2-1.2 mg /dL Final [facility] - Laboratory: [address], [place] eGFR - >60 mL/min/1 .73m2 Final [facility] - Laboratory: [address], [place] Sodium 139 mEq/L 135-145 mEq/L [facility] - Laboratory: [address], [place] Potassium 5.0 mEq/L 3.5-5.3 mEq/L [facility] - Laboratory: [address], [place] Chloride 104 mmol/L 98-110 mmol/L [facility] - Laboratory: [address], [place] Total Protein 6.2 g/dL 6.1-8.2 g/dL [facility] - Laboratory: [address], [place] Low Calcium 8.9 mg/dL 9.0-10.2 mg/dL [facility] - Laboratory: [address], [place] Co2 24.3 mmol/L 20.0-32.0 mmol/L [facility] - Laboratory: [address], [place] Anion Gap 11 calc Final [facility] [facility] Lipid Panel, Serum Hdl 80 mg/dL [facility] - Laboratory: [address] [place] Triglyceride 64 mg/dL <150 mg/dL [facility] - Laboratory: [address], [place] VLDL (Calculated) 13 mg/dL [facility] - Laboratory: [address], [place] cholesterol/HDL Ratio 2.0 mg/dL Final [facility] - Laboratory: [address] Cody [facility], [place] non-HDL Cholesterol (Calculated) 81 mg/dL <160 mg/dL Final [facility] - Laboratory: [address], [place] Cholesterol 161 mg/dL <200 mg/dL [facility] - Laboratory: [address], [place] LDL (Calculated) 68 mg/dL <130 mg/dL [facility] Laboratory: [address] [facility]2020 CBC W/ Auto Diff High White Blood Cell Co unt 12.1 thousand/uL 3.8-10.8 thousand/uL Final [facility] - Laboratory : [address], [place] Low Red Blood Cell Count 4.02 million/uL 4.20-5.80 million/uL Final [facility] - Laboratory: [address], [place] Low Hemoglobin 12.1 g/dL 13.2-17.1 g/dL Final [facility] - Laboratory: [address], [place] Low Hematocrit 38.0 % 38.5-50.0 % Final [facility] - Laboratory: [address], [place] Normal Mcv 94.5 fL 80.0-100.0 fL Final [facility] - Laboratory: [address], [place] Normal Mch 30.1 pg 27.0-33.0 pg Final [facility] - Laboratory: [address], [place] Low Mchc 31.8 g/dL 32.0-36.0 g/dL Final [facility] - Laboratory: [address] [place] High Rdw 15.4 % 11.0-15.0 % Final [facility] Medical - Laboratory: [address], [place] Normal Platelet Count 264 thousand/uL 140-4 00 thousand/uL Final [facility] - Laboratory: [address] Gary [place] Normal Mpv 11.8 fL 7.5-12.5 fL Final [facility] Medical - Laboratory: [address], [place] High Absolute Neutrophils 9257 cells/uL 1 500-7800 cells/uL Final [facility] - Laboratory: [address], [place] Normal Absolute Lymphocytes 2081 cells/uL 8 50-3900 cells/uL Final [facility] - Laboratory: [address], [place] Normal Absolute Monocytes 738 cells/uL 200- 950 cells/uL Final [facility] - Laboratory: [address], [place] Low Absolute Eosinophils 0 cells/uL 15-5 00 cells/uL Final [facility] - Laboratory: [address] Gary [place] Normal Absolute Basophils 24 cells/uL 0-200 cells/uL Final [facility] - Laboratory: [address] [place], [place] Normal Neutrophils 76.5 % Final [facility] - Laboratory: [address], [place] Normal Lymphocytes 17.2 % Final [facility] - Laboratory: [address], [place] Normal Monocytes 6.1 % Final [facility] - Laboratory: [address], [place] Normal Eosinophils 0.0 % Final [facility] - Laboratory: [address], [place] Normal Basophils 0.2 % Final [facility] - Laboratory: [address], 01/06/2020 Urinalysis, Dipstick Color Color yellow [facility] - [facility]obby: [address], [place] Color Appearance clear [facility] - [facility]obby: [address], [place] Color Glucose negative [facility] - [facility]obby: [address], [place] Color Bilirubin negative [facility] - [facility]obby: [address], [place] Color Ketones negative [facility] - [facility]obby: [address], [place] Color Specific [place] 1.015 [facility] - Hobby: [address], [place] Color Blood negative [facility] - [facility]obby: [address], [place] Color PH 6.5 [facility] Medical - Hobby: [address], [place] Color Protein negative [facility] - Hobby: [address], [place] Color Urobilinogen 0.2 [facility] - Hobby: [address], [place] Color Nitrites negative [facility] - [facility]obby: [address], [place] Color Leukocytes negative [facility] - Hobby: [address], Sun Allergies Code Code System Name Reaction Severity Status Onset Blue Dye Itching Moderate to Severe Active 308060 RxNorm Demerol Active 5933 RxNorm Iodine Active [...] avai lable Colonoscopy Information not avai lable 01/06/2020 XR, Chest, 2 View [facility] o[facility]y [address] [place] [address] ([address]) Vaccine List Vaccine Type Influenza, injectable, MDCK, quadrivalen t 10/10/20170.5 mL influenza, injectable, quadrivalent 08/22/2016 influenza, injectable, quadrivalent, pre servative free 09/28/2018 influenza, recombinant, quadrIvalent,inj ectable, preservative free 10/07/20190.5 mL pneumococcal polysaccharide PPV23 08/10/2012 Social History Tobacco Smoking Status Light Tobacco Smoker (1/4 PPD) Past Encounters 01/14/2020 Benign Hypertensive Heart Disease and Chronic Renal Disease; Chronic Kidney Disease Stage 3; Anemia in Chronic Kidney Disease; Acute Exacerbation of Chronic Obstructive Airways Disease Surendra Chambers Jr, MD: [address], [facility], [place] [address], Ph. 01/06/2020 Adult Health Examination; Advance Directive Discussed with Patient; Depression Screening; Alcohol Consumption Screening; Body Mass Index 20-24 - Normal; Benign Hypertensive Heart Disease and Chronic Renal Disease; Chronic Kidney Disease Stage 3; Coronary Arteriosclerosis; Peripheral Vascular Disease; Recurrent Major Depression; Amputated above Knee; Atherosclerosis of Aorta; Benign Prostatic Hypertrophy without Outflow Obstruction; Gastroesophageal Reflux Disease; Chronic Obstructive Lung Disease; Arthritis of Facet Joint of Lumbar Spine; Alcohol Intake above Recommended Sensible Limits; Lung Field Abnormal; Noncompliance with Medication Regimen Surendra Chambers Jr, MD: [address], [address], [place] [address], Ph. History of Present Illness Hypertension Reported By: Patient HPI: Severity: mild. Onset/Timing : gradual onset. Alleviating Factors: relieved with rest, medication. Self Care: not under emotional stress, blood pressure goal: 130/80. Associated Symptoms: no shortness of breath, no fatigue, no decline in exercise capacity Mini Cog Reported By: Patient Functional Ability: Personal/Social/ Draw a cloc k and write in the numbers in the correct place, and set the time to 10 minutes after 11 o'clock was completed correctly? No, 3 word recall: Your nurse or doctor will ask you to remember 3 words. In 5 minutes, they will ask you to repeat them. Patient recalled 3 words Hyperlipidemia Reported By: Patient HPI: Type of hyperlipidemia: comb ined, hypercholesterolemia. Duration: chronic. Current Therapy: currently taking: atorvastatin, last LDL level: 67 date: . Complications: coronary artery disease, peripheral artery disease, cardiovascular disease. Risk Factors: hypertension Opioid Use Assessment Reported By: Patient Opioid Use Assessment:: Current Use of Opioids : Tra madol (Ultram). Has the patient tried other pain management modalities: no URI Reported By: Patient Upper Respiratory Symptoms: Onset/Timing: gradual. Dur ation: intermittent, symptoms are worsening. Location: chest. Quality: no sore throat, dry cough, wheezing, hacking cough. Severity: moderate. Context: no sick contacts, no for eign travel. Associated Symptoms: no fever, no chills, no significant weight loss, no diarrhea, no nausea Hypertension Reported By: Patient Note:{{Yes|No}} Review of Systems Comprehensive General Adult ROS Reported By: Patient Constitutional: Constitutional: no fever, no night sweats, no significant weight gain, no significant weight loss Eyes: Eyes: no vision change ENMT: Ears: no difficulty hearing, no ear pain. Mouth/Throat: no sore throat Cardiovascular: Cardiovascular: no chest young n, no shortness of breath when walking Respiratory: Respiratory: cough, wheezing , shortness of breath Gastrointestinal: Gastrointestinal: no nausea, no diarrhea Musculoskeletal: Musculoskeletal: no arthralg ias/joint pain Integumentary: Skin: no rashes Endocrine: Endocrine: fatigue Allergic/Immunologic: Allergy/Immunologic: no runn y nose, no sinus pressure Physical Exam General Adult Exam (male), U pper Respiratory Infection Exam Comprehensive, Upper Respiratory Infection Exam, Cardiology Exam Reported By: Patient Constitutional: General Appearance: well-nou rished, well-developed, in no acute distress, appears stated age Psychiatric: Insight: poor insight. Menta l Status: active and alert, normal mood, normal affect. Orientation: to time, to place, to person, oriented to time, place, and person. Memory: recent memory normal, remote memory normal ENMT: Nose: no lesions on external nose, no sinus tenderness, normal, pink and moist. Nasal Skin: no lacerations Neck: Neck: trachea midline, symme trical Lungs: Auscultation: no rhonchi, de creased breath sounds, diminished air movement, expiratory wheezing, rales / crackles,bibasilar Cardiovascular: Heart Auscultation: RRR, nor mal S1, no murmurs, no rubs, no gallops, physiologically split S2, no click. Pulses including femoral / pedal: full and equal in all extremities except if noted. Auscultation regular rate and rhythm. Systolic Murmur: not heard. Diastolic Murmur: not heard Musculoskeletal:: Extremities: no cyanosis, no edema, no peripheral signs of emboli Skin: Inspection and palpation: wa rm and dry Back: Thoracolumbar Appearance: no chest wall tenderness Ears: Right External auditory renetta l normal appearance, no erythema. Left External auditory canal normal appearance, no erythema. Right Tympanic membrane dull, bulging. Left Tympanic membrane: dull, bulging Oral Cavity/Mouth: Oral Mucosa: normal, moist, no lesions. Posterior pharynx: lymphoid hyperplasia (cobblestoning) Lymph Nodes: Cervical no palpable lymph n ode enlargement"
--- OUTSIDE RECORDS SUMMARY | 2020-06-23 04:01 | XMS REPORT | Encounter Summary ---
Author Organization Unknown Address [address] [place] [address] Phone [phone] Care Team Providers Care Film Spooler Name Role Phone Dr. Surendra Chambers 3 [phone] Surendra Chambers Jr, MD 3 [phone] Marta Mohanom 61 Unavailable Nida Long MD 114 [phone] Nicholas Bradshaw MD (Cardiothoracic & Vascular Surgery) 122 [phone] Reason for Visit cough / congestion; Telemedicine Visit Instructions 1. Chronic obstructive lung disease sulfamethoxazole 800 mg-trimethoprim 1 60 mg tablet prednisone 20 mg tablet Discussion Note: None recorded. Patient educational handouts: [...] start coughing up yellow or green phlegm tamsulosin 0.4 mg capsule Take 1 capsule [...] Blue Dye Itching Moderate to Severe Active 479285 RxNorm Demerol Active 5933 RxNorm Iodine Active [...] Light Tobacco Smoker (11/27 PPD) Past Encounters 04/28/2020 Chronic Obstructive Lung Disease Surendra Chambers Jr, MD: [address] [facility], [facility] [address], [place] [address], Ph. 04/10/2020 Benign Hypertensive Heart Disease and Chronic Renal Disease; Chronic Kidney Disease Stage 3; Jaundice; History of Coronary Artery Bypass Grafting Surendra Chambers Jr, MD: [address] [facility], [facility] [address], [place] [address], Ph. 04/06/2020 Chronic Obstructive Lung Disease Surendra Chambers Jr, MD: [address] [facility], [address], [place] [address], Ph. 04/06/2020 Benign Prostatic Hypertrophy without Outflow Obstruction; Chronic Obstructive Lung Disease; Benign Hypertensive Heart Disease and Chronic Renal Disease Surendra Chambers Jr, MD: [address], [facility], [place] [address], Ph. History of Present Illness Upper Respiratory Symptoms Reported By: Patient URI Reported By: Patient Upper Respiratory Symptoms: [...] was performed using live {{video and audio*|audio only because either patient did not have technology or unable to connect due to technical problems}}.
<b>(for audio only)</b> Total time spent with patient: {{ }} minutes. Review of Systems Comprehensive General Adult ROS [...]
--- OUTSIDE RECORDS SUMMARY | 2020-06-23 04:01 | XMS REPORT | Encounter Summary ---
Author Organization Unknown Address [address] [place] [address] Phone [phone] Care Team Providers Care Impersonator Character Name Role Phone Dr. Surendra Chambers 3 [phone] Surendra Chambers Jr, MD 3 [phone] Marta Mohanom 63 Unavailable Nida Long MD 114 [phone] Nicholas Bradshaw MD (Cardiothoracic & Vascular Surgery) 122 [phone] Reason for Visit TELE-hospital follow up - TCM (DAVINA); [place] Follow-up Instructions 1. Fungal infection of lung 2. Chronic obstructive lung disease 3. Cigarette smoker advised to quit smoking stopping smoking: care instructions deciding about using medicines to quit smoking Wellbutrin SR 150 mg tablet, 12 hr farheen tained-release Discussion Note: None recorded. Plan of Care [...] what medications you should be taking. Our [facility] can also help you in this area. Contact them at . [facility] help you choose the best [facility] Health agency. We can also help you with professor of social work and community resources. Call us we are here to help. If you experience any new or concerning symptoms, call us immediately at . Evening and Friday clinic hours are now available. If you have problems after hours, you can reach the [facility] doctor obstetrics nurse practitioner at . Please follow up with your doctor in four weeks. Thank you for scheduling your post hospital visit. Reminders Provider Appointments Est Patient 04/06/2020 10:00AM [...] by oral route. doxycycline hyclate 100 mg capsule doxycycline hyclate 100 mg tablet Take 1 [...] 60 days. valsartan 80 mg tablet DAILY Wellbutrin SR 150 mg tablet, 12 hr susta ined-release Take 1 tablet twice a day by oral route for 90 days. Medications Administered None recorded. Vitals None recorded. Results Lab Results Date Name Specimen Result Interpretation Description Value Range Status Address 02/15/2020 HbA1C (Hemoglobin a1C), Blood No observat ion recorded. [facility]: [address] [facility] 02/15/2020 Lipid Panel, Serum No observation recorde d. [facility]: [address] [facility], [place] 02/15/2020 CMP, Serum or Plasma No observation recor ded. [facility]: [address] [facility], [place] 02/10/2020 Rapid Flu (A+B) Type Flu a negative [facility]: [address] [facility], [place] Type Flu B negative [facility]: [address] [facility], [place] 02/10/2020 Rapid Flu (A+B) No observation recorded. [facility]: [address] [address] [facility], [place] 02/10/2020 COVID-19 RNA, QL, court worker-PCR, Unspecified Specimen No observation recorded. [facility]: [address] [facility] Allergies Code Code System Name Reaction Severity Status Onset Blue Dye Itching Moderate to Severe Active 550843 RxNorm Demerol Active 5933 RxNorm Iodine Active [...] Light Tobacco Smoker (1/4 PPD) Past Encounters 02/22/2020 Fungal Infection of Lung; Chronic Obstructive Lung Disease; Cigarette Smoker Surendra Chambers Jr, MD: [address], [address], [place] [address], Ph. 02/10/2020 Severe Chronic Obstructive Pulmonary Disease; Fever Chhayaiveni Trenton Alba MD: [address], [address], [place] [address], Ph. History of Present Illness COPD Initial / Follow Up Reported By: Patient Hospital Follow Up (TCM) Reported By: Patient Note:I confirm that I [...] breath Endocrine: Endocrine: no fatigue Physical Exam Neurology Exam Reported By: Patient Constitutional: Weight: well-nourished. Ambu lation: ambulates independently Head: Size/Trauma: normocephalic Mental Status: Orientation oriented to pers on, oriented to place, oriented to time. Mood/Affect: appropriate mood, appropriate affect. Language: has spontaneous speech. Memory: recent memory intact, remote memory intact. Fund of Knowledge: current events, past history
--- OUTSIDE RECORDS SUMMARY | 2020-06-23 04:01 | XMS REPORT | Encounter Summary ---
Author Organization Unknown Address [address] [place] [address] Phone [phone] Care Team Providers Care Hot Oiler Name Role Phone Dr. Surendra Chambers 3 [phone] Surendra Chambers Jr, MD 3 [phone] Marta Mohanom 63 Unavailable Nida Long MD 114 [phone] Nicholas Bradshaw MD (Cardiothoracic & Vascular Surgery) 122 [phone] Reason for Visit Left abdominal pain; shortness of breath ; diarrhea; cough Instructions 1. Severe chronic obstructive pulmonary disease 2. Fever rapid flu (A+B) Discussion Note Go to ER immediately F/u with pcp in 1 week s/p D/c from hospital Patient & daughter requesting Prednisone for treating his current condition i.e short of breath & fatigue. 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 Most likely patient is dependant on steroids; suggested he may need to be on the low dose after seeing the dump motor operator. Discussed with patient & his daughter, since he has been treated every month to the day with steroids in the office , he most likely dependant on steroids. consider seeing the dump motor operator to get started on steroid pills. Patient educational handouts: No information available. Plan of Care Reminders Provider Appointments Telemedicine 15 02/22/2020 9:45AM Surendra le Jr, MD Est Patient 04/06/2020 10:00AM Surendra cornejo Jr, MD Lab Rapid Flu (A+B) 02/10/2020 [facility] Referral None recorded. Procedures None recorded. Surgeries [...] tablet DAILY Medications Administered None recorded. Vitals Height Weight Blood Pressure 5 ft 2 in 100/62 mm[Hg] Results Lab Results Date Name Specimen Result Interpretation Description Value Range Status Address 02/15/2020 HbA1C (Hemoglobin a1C), Blood No observat ion recorded. [facility]: [address] [facility] 02/15/2020 Lipid Panel, Serum No observation recorde d. [facility]: [address] [facility] [place] 02/15/2020 CMP, Serum or Plasma No observation recor ded. [facility]: [address] [facility] [place] 02/10/2020 Rapid Flu (A+B) Type Flu a negative [facility]: [address] [address], [place] Type Flu B negative [facility]: [address] [address], [place] 02/10/2020 Rapid Flu (A+B) No observation recorded. [facility]: [address] [facility] 02/10/2020 COVID-19 RNA, QL, news assignment editor-PCR, Unspecified Specimen No observation recorded. [facility]: [address] [facility] Allergies Code Code System Name Reaction Severity Status Onset Blue Dye Itching Moderate to Severe Active 360143 RxNorm Demerol Active 5933 RxNorm Iodine Active [...] Light Tobacco Smoker (11/27 PPD) Past Encounters 02/10/2020 Severe Chronic Obstructive Pulmonary Disease; Fever Thriveni Trenton Alba MD: [address], [address], [place] [address], Ph. 01/14/2020 Benign Hypertensive Heart Disease and Chronic Renal Disease; Chronic Kidney Disease Stage 3; Anemia in Chronic Kidney Disease; Acute Exacerbation of Chronic Obstructive Airways Disease Surendra Chambers Jr, MD: [address], [address], [place] [address], Ph. History of Present Illness Abdominal Pain Reported By: Patient Note:64 year old male presents for sick visit. Accompanied by his daughter. < div>He was told to go to ER since last week & pt has ot been there for his shortness of breath. </div><div>Mentions he has been tired and fatigued since 01/08. Has lost 6 lbs in the last month; he was 115 lbs and is now 109 lbs.
</div><div>
</div><div>Had COPD exacerbation on 01/14. Before that she had seen for the same reason. He prescribed him Prednisone (20 mg) & Doxycycline. Has run out of prednisone pills. </div><div>
</div><div>He is compliant with all his medications.</div><div>Was given Cefdinir in 02/04 by his lung doctor (Dr. Nida Long) for 14 days. He has 1 more dose left. Occasionally feels better with it. </div><div>
</div><div>Takes an allergy pill; unsure of the name. </div><div>He needs to get Prednisone refilled. </div ><div>
</div><div>Up to date with his flu vaccine; took it in September 2019. </div><div>Creatinine 1.25 , EGFR>60 in 12/2019. </div><div>
</div><div>No chest pain , shortness of breath going on for 1 week still has 1 , no palpi tations ,no dizziness , no diaphoresis , no weakness or numbness in arms or legs , no visual loss . no muscle aches , no muscle weakness.</div><div>
</div> Review of Systems:ROS as noted in the HPI Review of Systems Comprehensive General Adult ROS Reported By: Patient Constitutional: Constitutional: no fever, no significant weight gain, weight loss (6 lbs), lethargy Eyes: Eyes: no dry eyes, no vision change, no irritation ENMT: Ears: no ear pain. Nose: no sinus problems. Mouth/Throat: no sore throat Cardiovascular: Cardiovascular: no chest young n, no palpitations Respiratory: Respiratory: no cough, no sh ortness of breath Gastrointestinal: Gastrointestinal: no abdomin al pain, no dyspepsia Musculoskeletal: Musculoskeletal: no swelling in the extremities Integumentary: Skin: no abnormal mole, no r ashes Neurologic: Neurologic: no weakness, no numbness, no headaches Psychiatric: Psych: no depression, no alc ohol abuse, no anxiety Endocrine: Endocrine: no fatigue Hematologic/Lymphatic: Hematologic/Lymphatic no swo llen glands Allergic/Immunologic: Allergy/Immunologic: no runn y nose, no sinus pressure Physical Exam General Adult Exam (male), U pper Respiratory Infection Exam Comprehensive Reported By: Patient Constitutional: General Appearance: well-dev eloped; BMI - 21. Level of Distress: moderate distress. Ambulation: ambulating normally Psychiatric: Mental Status: active and al ert Eyes: Lids and Conjunctivae: non-i njected, no discharge, no pallor. Pupils: PERRLA. Sclerae: non-icteric ENMT: Ears: no lesions on external ear, EACs clear, TMs clear, TM mobility normal. Nose: nares patent, no septal deviation, no sinus tenderness, no nasal discharge. Lips, Teeth, and Gums: no mouth or lip ulcers. Oropharynx: moist mucous membranes, no exudates Neck: Neck: supple. Thyroid: no en largement Lungs: Respiratory effort: no dyspn ea. Auscultation: wheezing expiratory ; Lungs are clear to auscultationSlightly tachypneic: status post nebulizationDistant lung sounds: no wheezing/cough heard currently Cardiovascular: Heart Auscultation: RRR, no murmurs, no rubs, no gallops; no edema Abdomen: Bowel Sounds: normal. Inspec tion and Palpation: soft, non-distended, no tenderness, no guarding, no rebound tenderness, no masses, no CVA tenderness. Liver: no hepatomegaly. Spleen: no splenomegaly Musculoskeletal:: Motor Strength and Tone: nor mal, normal tone. Joints, Bones, and Muscles: normal movement of all extremities, no bony abnormalities, no tenderness. Extremities: no edema Neurologic: Gait and Station: normal gai t. Cranial Nerves: grossly intact Skin: Inspection and palpation: no rash Notes: patient laying on the exam t able very comfortably with absent left lower extremity below the knee
--- OUTSIDE RECORDS SUMMARY | 2020-06-23 04:01 | XMS REPORT | Encounter Summary ---
Author Organization Unknown Address [address] [place] [address] Phone [phone] Care Team Providers Care Bundler Name Role Phone Dr. Surendra Chambers 3 [phone] Surendra Chambers Jr, MD 3 [phone] Nida Long MD 114 [phone] Nicholas Bradshaw MD (Cardiothoracic & Vascular Surgery) 122 [phone] Reason for Visit URI; hypertension Instructions 1. 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 Coronary arteriosclerosis 3. Chronic kidney disease stage 3 4. Upper respiratory infection XR, chest, 2 view rapid flu (A+B) Tylenol-Codeine #3 300 mg-30 mg tablet 5. Acute exacerbation of chronic obstruc tive airways disease chronic obstructive pulmonary disease (COPD) flare-ups: care instructions COPD exacerbation plan: care instructi ons doxycycline hyclate 100 mg tablet XR, chest, 2 view triamcinolone acetonide 40 mg/mL suspe nsion for injection dexamethasone sodium phosphate 4 mg/mL injection solution 6. Allergic rhinitis cetirizine 10 mg tablet Discussion Note: None recorded. Plan of Care Reminders Provider Appointments Est Patient 01/06/2020 10:15AM Surendra cornejo Jr, MD Lab Rapid Flu (A+B) 11/02/2019 [facility] Referral None recorded. Procedures None recorded. Surgeries None recorded. Imaging XR, Chest, 2 View 11/02/2019 [facility] r Radiology XR, Chest, 2 View 11/02/2019 [facility] Radiology [facility] Medications Name Start Date aspirin 81 mg [...] a day by oral route as needed. Tylenol-Codeine #3 300 mg-30 mg tablet Take 1 tablet every 8 hours by oral route for 7 days. Medications Administered None recorded. Vitals Height Weight BMI Blood Pressure 5 ft 2 in 115 lbs 21 kg/m2 (1) 160/90 mm[H g] (2) 148/82 mm[Hg] Results Lab Results Date Name Specimen Result Interpretation Description Value Range Status Address Rapid Flu (A+B) Type Flu a negative [facility]: [address] Type Flu B negative [facility]: [address] Allergies Code Code System Name Reaction Severity Status Onset Blue Dye Itching Moderate to Severe Active 474641 RxNorm Demerol Active 5933 RxNorm Iodine Active [...] Phantom Limb Syndrome with Pain Active 10/07/2019 Atherosclerosis of Aorta Active Intermittent Claudication Active 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 Procedures Date Name Performed by Amputation Information not avai lable Colonoscopy Information not avai lable 10/07/2019 XR, Hip, Unilateral, 2 or 3 View [facility] Radiology [address] [place] [address] (Work [address]) 10/07/2019 US, Abdomen, Complete [facility] Ra diology [address] [place] [address] (Work Place) 11/02/2019 XR, Chest, 2 View [facility] Radi ology [address] [place] [address] (Work Place) 11/02/2019 [facility] [address] [place], [place] [id number] (Work Place) Vaccine List Vaccine Type Influenza, injectable, MDCK, quadrivalen t 10/10/20170.5 mL influenza, injectable, quadrivalent 08/22/2016 influenza, injectable, quadrivalent, pre servative free 09/28/2018 influenza, recombinant, quadrIvalent,inj ectable, preservative free 10/07/20190.5 mL pneumococcal polysaccharide PPV23 08/10/2012 Social History Tobacco Smoking Status Light Tobacco Smoker (1/4 PPD) Past Encounters 11/02/2019 Benign Hypertensive Heart Disease and Chronic Renal Disease; Coronary Arteriosclerosis; Chronic Kidney Disease Stage 3; Upper Respiratory Infection; Acute Exacerbation of Chronic Obstructive Airways Disease; Allergic Rhinitis Surendra Chambers Jr, MD: [address] [facility], [address], [place] [address], Ph. 10/07/2019 Benign Hypertensive Heart Disease and Chronic Renal Disease; Chronic Kidney Disease Stage 3; Coronary Arteriosclerosis; Chronic Obstructive Lung Disease; Amputated above Knee; Phantom Limb Syndrome with Pain; Gastroesophageal Reflux Disease; Benign Prostatic Hypertrophy without Outflow Obstruction; Peripheral Vascular Disease; Allergic Rhinitis; Arthritis of Facet Joint of Lumbar Spine; Recurrent Major Depression; Abdominal Pain; Hip Pain; Ventral Incisional Hernia; Depression Screening; Influenza Vaccination Surendra Chambers Jr, MD: [address] [facility], [address], [place] [address], Ph. History of Present Illness Hypertension Reported By: Patient HPI: Severity: mild. Onset/Timing : gradual onset. Alleviating Factors: relieved with rest, medication. Self Care: not under emotional stress, blood pressure goal: 130/80. Associated Symptoms: no shortness of breath, no fatigue, no decline in exercise capacity Upper Respiratory Symptoms Reported By: Patient Hyperlipidemia Reported By: Patient HPI: Type of hyperlipidemia: comb ined, hypercholesterolemia. Duration: chronic. Current Therapy: currently taking:. Complications: no coronary artery disease Hypertension Reported By: Patient URI Reported By: Patient [...] appears stated age. Level of Distress: NAD ENMT: Nose: no lesions on external nose, no sinus tenderness, normal, pink and moist. Nasal Skin: no lacerations Neck: Neck: trachea midline, symme trical Lungs: Auscultation: breath sounds normal, good air movement, CTA except as noted, no wheezing, no [...]
--- OUTSIDE RECORDS SUMMARY | 2020-06-23 04:01 | XMS REPORT | Encounter Summary ---
Author Organization Unknown Address [address] [place] [address] Phone [phone] Care Team Providers Care Pad Extractor Tender Name Role Phone Dr. Surendra Chambers 3 [phone] Surendra Chambers Jr, MD 3 [phone] Nida Long MD 114 [phone] Nicholas Bradshaw MD (Cardiothoracic & Vascular Surgery) 122 [phone] Reason for Visit hospital follow up - [...] what medications you should be taking. [facility] can also help you in this area. Contact them at . [facility] can help you choose the best Home Health agency. We can also help you with social problems specialist and community resources. Call us we are here to help. If you experience any new or concerning symptoms, call us immediately at . Evening and Friday clinic hours are now available. If you have problems after hours, you can reach the [facility] doctor client consultant at [phone] . Please follow up with your doctor [...] (A+B) Type Flu a negative [facility]: [address] [facility], [place] Type Flu B negative [facility]: [address] [facility], [place] Allergies Code Code System Name Reaction Severity Status Onset Blue Dye Itching Moderate to Severe Active 096978 RxNorm Demerol Active 5933 RxNorm Iodine Active [...] avai lable 11/02/2019 XR, Chest, 2 View [facility] ology [address] [place] [address] (Work [address]) 11/02/2019 XR, Chest, 2 View [facility] ology [address] [place], [place] [id number] (Work Place) Vaccine List Vaccine Type Influenza, [...] Chambers Jr, MD: [address], [address], [place] [address], Ph. 11/02/2019 Benign Hypertensive Heart Disease and Chronic Renal Disease; Coronary Arteriosclerosis; Chronic Kidney Disease Stage 3; Upper Respiratory Infection; Acute Exacerbation of Chronic Obstructive Airways Disease; Allergic Rhinitis Surendra Chambers Jr, MD: [address], [address], [place] [address], Ph. History of Present Illness Hospital Follow [...]
--- OUTSIDE RECORDS SUMMARY | 2020-06-23 04:01 | XMS REPORT | Encounter Summary ---
Author Organization Unknown Address [address] [place] [address] Phone [phone] Care Team Providers Care Clinical Nursing Director Name Role Phone Dr. Surendra Chambers 3 [phone] Surendra Chambers Jr, MD 3 [phone] Marta Mohanom 63 Unavailable Nida Long MD 114 [phone] Nicholas Bradshaw MD (Cardiothoracic & Vascular Surgery) 122 [phone] Reason for Visit chronic care management Instructions 1. Chronic obstructive lung disease 2. Benign hypertensive heart disease and chronic renal disease Discussion Note: None recorded. Patient educational handouts: No information available. Plan of Care Reminders Provider Appointments Est Patient 07/28/2020 9:15AM Surendra le Jr, MD Lab None recorded. [...] Blue Dye Itching Moderate to Severe Active 745711 RxNorm Demerol Active 5933 RxNorm Iodine Active [...] Light Tobacco Smoker (11/27 PPD) Past Encounters 05/02/2020 Chronic Obstructive Lung Disease; Peripheral Vascular Disease Marta Hilary: [address] [facility], [address], [place] [address], Ph. 04/28/2020 Chronic Obstructive Lung Disease Surendra Chambers Jr, MD: [address], [facility] [address] [address], Ph. 04/10/2020 Benign Hypertensive Heart Disease and Chronic Renal Disease; Chronic Kidney Disease Stage 3; Jaundice; History of Coronary Artery Bypass Grafting Surendra Chambers Jr, MD: [address], [address] [address], Ph. 04/06/2020 Chronic Obstructive Lung Disease; Benign Hypertensive Heart Disease and Chronic Renal Disease Surendra Chambers Jr, MD: [address] [facility], [address], [place] [address], Ph. 04/06/2020 Benign Prostatic Hypertrophy without Outflow Obstruction; Chronic Obstructive Lung Disease; Benign Hypertensive Heart Disease and Chronic Renal Disease Surendra Chambers Jr, MD: [address], [facility] [address] [address], Ph. 03/13/2020 Benign Hypertensive Heart Disease and Chronic Renal Disease; Acute Exacerbation of Chronic Obstructive Airways Disease; Fungal Infection of Lung; Cigarette Smoker Surendra Chambers Jr, MD: [address], [facility], [place] [address], Ph. History of Present Illness Note:KELSIE Choe <div> 04/06/2020 10 min</div><div>CCM Consent 04/06/20
<div>PCS Called and Introduced to patient. Explained CCM services. History of COPD. Reviewed medical record. Patient completed COPD 02/23/2020. Will follow up with patient to complete next COPD assessment within 11 week timeframe. Patient consented to receiving calls every 2-3 weeks. </div></div> Review of Systems None recorded. Physical Exam None recorded.
--- OUTSIDE RECORDS SUMMARY | 2020-06-23 04:01 | XMS REPORT | Encounter Summary ---
Author Organization Unknown Address [address] [place] [address] Phone [phone] Care Team Providers Care Sales Clerk Food Name Role Phone Dr. Surendra Chambers 3 [phone] Surendra Chambers Jr, MD 3 [phone] Marta Mohanom 63 Unavailable Nida Long MD 114 [phone] Nicholas Bradshaw MD (Cardiothoracic & Vascular Surgery) 122 [phone] Reason for Visit chronic care management Instructions 1. Chronic obstructive lung disease 2. Essential hypertension Discussion Note: None recorded. Patient educational handouts: [...] Blue Dye Itching Moderate to Severe Active 007517 RxNorm Demerol Active 5933 RxNorm Iodine Active [...] Lung Disease; Peripheral Vascular Disease Marta Hilary: [address] [facility], [address], [place] [address], Ph. 04/28/2020 Chronic Obstructive Lung Disease Surendra Chambers Jr, MD: [address], [address] [address], Ph. 04/10/2020 Benign Hypertensive Heart Disease and Chronic Renal Disease; Chronic Kidney Disease Stage 3; Jaundice; History of Coronary Artery Bypass Grafting Surendra Chambers Jr, MD: [address] [address], Ph. 04/06/2020 Chronic Obstructive Lung Disease; Essential Hypertension Surendra Chambers Jr, MD: [address] [facility], [address], [place] [address], Ph. 04/06/2020 Benign Prostatic Hypertrophy without Outflow Obstruction; Chronic Obstructive Lung Disease; Benign Hypertensive Heart Disease and Chronic Renal Disease Surendra Chambers Jr, MD: [address], [address] [address], Ph. 03/13/2020 Benign Hypertensive Heart Disease and Chronic Renal Disease; Acute Exacerbation of Chronic Obstructive Airways Disease; Fungal Infection of Lung; Cigarette Smoker Surendra Chambers Jr, MD: [address], [address], [place] [address], Ph. History of Present Illness Note:KELSIE Choe [...]
--- OUTSIDE RECORDS SUMMARY | 2020-06-23 04:01 | XMS REPORT | Encounter Summary ---
Author Organization Unknown Address [address] [place] [address] Phone [phone] Care Team Providers Care Supervisor [employer] Name Role Phone Dr. Surendra Chambers 3 [phone] Surendra Chambers Jr, MD 3 [phone] Marta Mohanom 63 Unavailable Nida Long MD 114 [phone] Nicholas Bradshaw MD (Cardiothoracic & Vascular Surgery) 122 [phone] Reason for Visit Benign hypertensive heart disease and ch ronic renal disease; Chronic obstructive lung disease; Benign prostatic hypertrophy without outflow obstruction; skin problem/rash; Telemedicine Visit Instructions 1. Benign prostatic hypertrophy without outflow obstruction 2. Chronic obstructive lung disease 3. Benign hypertensive heart disease and chronic renal [...] Blue Dye Itching Moderate to Severe Active 532851 RxNorm Demerol Active 5933 RxNorm Iodine Active [...] Light Tobacco Smoker (1/4 PPD) Past Encounters 04/06/2020 Chronic Obstructive Lung Disease Marta Hilary: [address] [facility], [address], [place] [address], Ph. 04/06/2020 Benign Prostatic Hypertrophy without Outflow Obstruction; Chronic Obstructive Lung Disease; Benign Hypertensive Heart Disease and Chronic Renal Disease Surendra Chambers Jr, MD: [address] [facility], [address], [place] [address], Ph. 03/13/2020 Benign Hypertensive Heart Disease and Chronic Renal Disease; Acute Exacerbation of Chronic Obstructive Airways Disease; Fungal Infection of Lung; Cigarette Smoker Surendra Chambers Jr, MD: [address] [facility], [facility], [place] [address], Ph. History of Present Illness Note:I confirm that I received verbal consent from the patient for the virtual visit.
This telemedicine encounter was performed using live {{video and audio|audio only}}.
<b>(for audio only)</b> Total time spent with patient: {{ }} minutes. Review of Systems None recorded. Physical Exam Telemedicine/Virtual Visit Reported By: Patient"
--- OUTSIDE RECORDS SUMMARY | 2020-06-23 04:01 | XMS REPORT | Encounter Summary ---
Author Organization Unknown Address [address] [place] [address] Phone [phone] Care Team Providers Care Electro Mechanical Technologist Name Role Phone Dr. Surendra Chambers 3 [phone] Surendra Chambers Jr, MD 3 [phone] Nida Long MD 114 [phone] Nicholas Bradshaw MD (Cardiothoracic & Vascular Surgery) 122 [phone] Reason for Visit Annual Alcohol Misuse Screening; Advance Care Plan; hypertension; AWV Annual Wellness Visit Male; cough / congestion; Alcohol Misuse Counseling Instructions 1. Adult health examination 2. Advance directive discussed with jorge ent advance care planning: care instructio ns 3. Depression screening 4. Alcohol consumption screening learning about alcohol misuse 5. Body mass index 20-24 - normal learning about healthy weight 6. Benign hypertensive heart disease and chronic renal disease atorvastatin 20 mg tablet carvedilol 12.5 mg tablet CBC w/ auto diff CMP, serum or plasma 7. Chronic kidney disease stage 3 8. Coronary arteriosclerosis clopidogrel 75 mg tablet lipid panel, serum 9. Peripheral vascular disease gabapentin 300 mg capsule 10. Recurrent major depression 11. Amputated above knee 12. Atherosclerosis of aorta 13. Benign prostatic hypertrophy without outflow obstruction finasteride 5 mg tablet Myrbetriq 50 mg tablet,extended releas e tamsulosin 0.4 mg capsule urinalysis, dipstick 14. Gastroesophageal reflux disease famotidine 40 mg tablet 15. Chronic obstructive lung disease ProAir HFA 90 mcg/actuation aerosol in haler ipratropium 0.5 mg-albuterol 3 mg (2.5 mg base)/3 mL nebulization soln turf grower referral - *Please call the patient and make an appointment* PLEASE SEND BACK CONSULT NOTES TO [phone] ipratropium 0.5 mg-albuterol 3 mg (2.5 mg base)/3 mL nebulization soln Trelegy Ellipta 100 mcg-62.5 mcg-25 mc g powder for inhalation 16. Arthritis of facet joint of lumbar s pine tramadol 50 mg tablet 17. Alcohol intake above recommended sen sible limits alcohol and drug problems: care instru ctions 18. Lung field abnormal XR, chest, 2 view 19. Noncompliance with medication regime n Discussion Note: None recorded. Plan of Care Patient Instructions It was good to see you in the office tod ay for your Medicare Annual Wellness Visit. You [...] Annual Wellness folder. Screening Recommendations 1. Vaccines Pneumonia: Influenza: Next F all 2. Colorectal Cancer Screening: Colonoscopy (every 10 years) No further screening necessary at this time 3. Annual Prostate Screening 4. Annual Depression Screening 5. Annual Alcohol Screening 6. Annual Fall Risk Screening 7. Annual Health Risk Assessment Patient Instructions on Filing Advance Directives Be sure that you have easy access to your paperwork for your medical power of [place] attorney and advanced directives. Be sure that the designated person as well as important family members have copies of those forms as well. Please have contact information of your designee readily available. In the event of hospitalization, please bring those important documents with you for reference. "We agreed to the following goals towards reducing your alcohol habits: We agreed to reduce the number of by by our next follow-up appointment. Handling Urges to drink Remind yourself of your reasons for making a change Talk it through with someone you trust Distract yourself with a healthy, alternative activity Challenge the thought that drives the urge Ride it out without giving in Leave high-risk situations quickly and gracefully" Reminders Provider Appointments Est Patient 04/06/2020 10:00AM Surendra cornejo Jr, MD Lab CBC W/ Auto Diff 01/06/2020 [facility] Medical - Laboratory CMP, Serum or Plasma 01/06/2020 [facility] ical - Laboratory Lipid Panel, Serum 01/06/2020 [facility] - Laboratory Urinalysis, Dipstick 01/06/2020 [facility] Referral Towing Pilot Referral 01/06/2020 Nida Long MD Procedures None recorded. Surgeries None recorded. Imaging XR, Chest, 2 View 01/06/2020 [facility] Radiology Medications Name Start Date aspirin 81 mg chewable tablet Chew 1 tablet every day by oral route for 90 days. atorvastatin 20 mg tablet Take 1 tablet every day by oral route. carvedilol 12.5 mg tablet Take 1 tablet twice a day by oral route. cetirizine 10 mg tablet Take 1 tablet every day by oral route. clopidogrel 75 mg tablet Take 1 tablet every day by oral route. famotidine 40 mg tablet Take 1 tablet every day by oral route. For stomach acid finasteride 5 mg tablet Take 1 tablet [...] hours by inhalation route for 90 days. sulfamethoxazole 800 mg-trimethoprim 160 mg tablet [...] ft 2 in 115 lbs 21 kg/m2 132/88 mm[Hg] Results Lab Results Date Name Specimen Result Interpretation Description Value Range Status Address 01/06/2020 Urinalysis, Dipstick Color Color yellow [facility]: [address], [place] Color Appearance clear [facility]: [address], [place] Color Glucose negative [facility]: [address], [place] Color Bilirubin negative [facility]: [address], [place] Color Ketones negative [facility]: [address], [place] Color Specific [place] 1.015 [facility]: [address], [place] Color Blood negative [facility]: [address], [place] Color PH 6.5 [facility]: [address], [place] Color Protein negative [facility]: [address], [place] Color Urobilinogen 0.2 [facility]: [address], [place] Color Nitrites negative [facility]: [address], [place] Color Leukocytes negative [facility]: [address], [place] Allergies Code Code System Name Reaction Severity Status Onset Blue Dye Itching Moderate to Severe Active 263171 RxNorm Demerol Active 5933 RxNorm Iodine Active [...] avai lable 01/06/2020 XR, Chest, 2 View [facility] Radi ology [address] [place] [address] (Work [address]) Vaccine List Vaccine Type Influenza, injectable, MDCK, quadrivalen t 10/10/20170.5 mL influenza, injectable, quadrivalent 08/22/2016 influenza, injectable, quadrivalent, pre servative free 09/28/2018 influenza, recombinant, quadrIvalent,inj ectable, preservative free 10/07/20190.5 mL pneumococcal polysaccharide PPV23 08/10/2012 Social History Tobacco Smoking Status Light Tobacco Smoker (/ PPD) Past Encounters 01/06/2020 Adult Health Examination; Advance Directive Discussed [...] with Medication Regimen Surendra Chambers Jr, MD: [address] [facility], [facility], [place] [address], Ph. History of Present Illness Hypertension Reported [...] diarrhea, no nausea Hypertension Reported By: Patient Note:I'd like to talk about what is ahead with your illness and do some thinking in advance about what is important to you so I can make sure we provide you with the care you want-is that okay? {{Yes*|No}} Review of Systems Comprehensive General Adult ROS [...] in no acute distress, appears stated age ENMT: Nose: no lesions on external nose, [...]
--- OUTSIDE RECORDS SUMMARY | 2020-06-23 04:01 | XMS REPORT | Encounter Summary ---
Author Organization Unknown Address [address] [place] [address] Phone [phone] Care Team Providers Care Parts Facilitator Name Role Phone Dr. Surendra Chambers 3 [phone] Surendra Chambers Jr, MD 3 [phone] Marta Mohanom 63 Unavailable Nida Long MD 114 [phone] Nicholas Bradshaw MD (Cardiothoracic & Vascular Surgery) 122 [phone] Reason for Visit Benign hypertensive heart disease [...] SR 150 mg tablet,12 hr farheen tained-release TAKE ONE TABLET BY MOUTH TWICE A DAY carvedilol 12.5 mg tablet Take 1 tablet [...] by oral route. gabapentin 300 mg capsule TAKE TWO CAPSULES BY MOUTH THREE TIMES A DAY ipratropium 0.5 mg-albuterol 3 mg (2.5 m g base)/3 mL nebulization soln Inhale 3 mL every day by nebulization route for 1 day. Myrbetriq 50 mg tablet,extended release Take 1 tablet every day by oral route. prednisone 20 mg tablet Take 2 tablets every day by oral route in the morning for 7 days. sulfamethoxazole 800 mg-trimethoprim 160 mg tablet Take 1 tablet twice a day by oral route for 7 days. tamsulosin 0.4 mg capsule Take 1 [...] Blue Dye Itching Moderate to Severe Active 822380 RxNorm Demerol Active 5933 RxNorm Iodine Active [...] 04/10/2020 Femoral-popliteal Artery Bypass Graft Active 04/10/2020 Hypertensive Heart and Renal Disease with (Congestive) Heart Failure Active 05/12/2020 Left Heart Failure Active 05/12/2020 Atherosclerosis of Aorta Active Intermittent Claudication Active [...] Lung Disease; Peripheral Vascular Disease Marta Hilary: [address] [facility], [address], [place] [address], Ph. 04/28/2020 Chronic Obstructive Lung Disease Surendra Chambers Jr, MD: [address], [facility] [address] [address], Ph. 04/10/2020 Benign Hypertensive Heart Disease and Chronic Renal Disease; Chronic Kidney Disease Stage 3; Jaundice; History of Coronary Artery Bypass Grafting Surendra Chambers Jr, MD: [address], [address] [address], Ph. 04/06/2020 Chronic Obstructive Lung Disease; Benign Hypertensive Heart Disease and Chronic Renal Disease Surendra Chambers Jr, MD: [address] [facility], [address], [place] [address], Ph. 04/06/2020 Benign Prostatic Hypertrophy without Outflow Obstruction; Chronic Obstructive Lung Disease; Benign Hypertensive Heart Disease and Chronic Renal Disease Surendra Chambers Jr, MD: [address], [facility] [address], [place] [address], Ph. 03/13/2020 Benign Hypertensive Heart Disease and Chronic Renal Disease; Acute Exacerbation of Chronic Obstructive Airways Disease; Fungal Infection of Lung; Cigarette Smoker Surendra Chambers Jr, MD: [address], [facility] [address], [place] [address], Ph. History of Present Illness Hypertension Reported [...] artery disease, cardiovascular disease. Risk Factors: hypertension Note:I confirm that I received verbal consent from the patient for the virtual visit.
This telemedicine encounter was performed using live {{video and audio*|audio only}}.
<strong>(for audio only)</strong> Total time spent with patient: {{ }} minutes.
{{Yes|No}} Review of Systems Comprehensive General Adult ROS Reported By: Patient Constitutional: Constitutional: no significa nt weight gain, no significant weight loss Cardiovascular: Cardiovascular: no chest young n, no shortness of breath when walking Respiratory: Respiratory: no cough, no wh eezing, no shortness of breath Endocrine: Endocrine: no fatigue Physical Exam Neurology Exam, Telemedicine /Virtual Visit Reported By: Patient Constitutional: Weight: well-nourished. Ambu lation: ambulates independently Head: Size/Trauma: normocephalic Mental Status: Orientation oriented to pers on, oriented to place, oriented to time. Mood/Affect: appropriate mood, appropriate affect. Language: has spontaneous speech. Memory: recent memory intact, remote memory intact. Fund of Knowledge: current events, past history Notes: psych"
--- OUTSIDE RECORDS SUMMARY | 2020-06-23 04:01 | XMS REPORT | Encounter Summary ---
Author Organization Unknown Address [address] [place] [address] Phone [phone] Care Team Providers Care Photocopying Equipment Mechanic Name Role Phone Dr. Surendra Chambers 3 [phone] Surendra Chambers Jr, MD 3 [phone] Marta Mohanom 63 Unavailable Nida Long MD 114 [phone] Nicholas Bradshaw MD (Cardiothoracic & Vascular Surgery) 122 [phone] Reason for Visit Left abdominal pain; shortness [...] on cephalosporin given to him by his javascript programmer for 14 days. Most likely patient is dependant on steroids; suggested he may need to be on the low dose after seeing the javascript programmer. Discussed with patient & his daughter, since he has been treated every month to the day with steroids in the office , he most likely dependant on steroids. consider seeing the javascript programmer to get started on steroid pills. Patient educational handouts: No information available. Plan of Care Reminders Provider Appointments Telemedicine 15 02/22/2020 9:45AM Surendra le Jr, MD Est Patient 04/06/2020 10:00AM Surendra cornejo Jr, MD Lab Rapid Flu (A+B) 02/10/2020 [facility] Referral None recorded. Procedures None recorded. Surgeries [...] (Hemoglobin a1C), Blood No observat ion recorded. [facility]: [address] [facility] 02/15/2020 Lipid Panel, Serum No observation recorde d. [facility]: [address] [facility], [place] 02/15/2020 CMP, Serum or Plasma No observation recor ded. [facility]: [address] [facility], [place] 02/10/2020 Rapid Flu (A+B) Type Flu a negative [facility]: [address] [address], [place] Type Flu B negative [facility]: [address] [address], [place] 02/10/2020 Rapid Flu (A+B) No observation recorded. [facility]: [address] [facility] 02/10/2020 COVID-19 RNA, QL, operations research group manager-PCR, Unspecified Specimen No observation recorded. [facility]: [address] [facility] Allergies Code Code System Name Reaction Severity Status Onset Blue Dye Itching Moderate to Severe Active 812242 RxNorm Demerol Active 5933 RxNorm Iodine Active [...] Pulmonary Disease; Fever Thriveni Trenton Alba MD: [address], [address], [place] [address], Ph. 01/14/2020 Benign Hypertensive Heart Disease and Chronic Renal Disease; Chronic Kidney Disease Stage 3; Anemia in Chronic Kidney Disease; Acute Exacerbation of Chronic Obstructive Airways Disease Surendra Chambers Jr, MD: [address], [address], [place] [address], Ph. History of Present Illness Abdominal Pain [...] Lungs: Respiratory effort: no dyspn ea. Auscultation: breath sounds normal; Lungs are clear to auscultationSlightly tachypneic: status [...]
--- OUTSIDE RECORDS SUMMARY | 2020-06-23 04:01 | XMS REPORT | Encounter Summary ---
Author Organization Unknown Address [address] [place] [address] Phone [phone] Care Team Providers Care Finance Insurance Manager Name Role Phone Dr. Surendra Chambers 3 [phone] Surendra Chambers Jr, MD 3 [phone] Nida Long MD 114 [phone] Nicholas Bradshaw MD (Cardiothoracic & Vascular Surgery) 122 [phone] Reason for Visit Chronic obstructive lung disease; hypert ension Instructions 1. Benign hypertensive heart disease and chronic renal disease atorvastatin 20 mg tablet carvedilol 12.5 mg tablet 2. Chronic kidney disease stage 3 3. Coronary arteriosclerosis clopidogrel 75 mg tablet 4. Chronic obstructive lung disease Breo Ellipta 100 mcg-25 mcg/dose powde r for inhalation ProAir HFA 90 mcg/actuation aerosol in haler 5. Amputated above knee 6. Phantom limb syndrome with pain 7. Gastroesophageal reflux disease famotidine 40 mg tablet 8. Benign prostatic hypertrophy without outflow obstruction finasteride 5 mg tablet tamsulosin 0.4 mg capsule Myrbetriq 50 mg tablet,extended releas e 9. Peripheral vascular disease gabapentin 300 mg capsule cardiovascular surgery referral 10. Allergic rhinitis cetirizine 10 mg tablet 11. Arthritis of facet joint of lumbar s pine tramadol 50 mg tablet 12. Recurrent major depression 13. Abdominal pain US, abdomen, complete 14. Hip pain XR, hip, unilateral, 2 or 3 view 15. Ventral incisional hernia 16. Depression screening learning about depression 17. Influenza vaccination Flublok Quad [id number] (PF) 180 mcg (4 5 mcg x 4)/0.5 mL IM syringe Discussion Note: None recorded. Plan of Care Reminders Provider Appointments Est Patient 01/06/2020 10:15AM Surendra cornejo Jr, MD Lab None recorded. Referral Cardiovascular Surgery Referral 10/07/2019 Nicholas Bradshaw MD (Cardiothoracic & Vascular Surgery) Procedures None recorded. Surgeries None recorded. Imaging XR, Hip, Unilateral, 2 or 3 View 10/07/2019 [facility] Radiology US, Abdomen, Complete 10/07/2019 [facility] Radiology Medications Name Start Date aspirin [...] oral route. doxycycline hyclate 100 mg tablet famotidine 40 mg tablet Take 1 tablet [...] BMI Blood Pressure 5 ft 2 in 112 lbs 20.5 kg/m2 (1) 144/82 mm[H g] (2) 136/78 mm[Hg] Results Lab Results None recorded. Allergies Code Code System Name Reaction Severity Status Onset Blue Dye Itching Moderate to Severe Active 742551 RxNorm Demerol Active 5933 RxNorm Iodine Active [...] Pain Active 10/07/2019 Atherosclerosis of Aorta Active Externa l Intermittent Claudication Active Sports Manager al 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 External Procedures Date Name Performed by Amputation Information not avai lable Colonoscopy Information not avai lable 10/07/2019 XR, Hip, Unilateral, 2 or 3 View [facility] [address] [place], [place] 101[address]134 (Work Place) 10/07/2019 US, Abdomen, Complete [facility] Ra diology [address] [place], [place] [id number] (Work Place) Vaccine List Vaccine Type Influenza, injectable, MDCK, quadrivalen t 10/10/20170.5 mL influenza, injectable, quadrivalent 08/22/2016 influenza, injectable, quadrivalent, pre servative free 09/28/2018 pneumococcal polysaccharide PPV23 08/10/2012 Social History Tobacco Smoking Status Light Tobacco Smoker (1/ PPD) Past Encounters 10/07/2019 Benign Hypertensive Heart Disease and Chronic [...] Screening; Influenza Vaccination Surendra Chambers Jr, MD: [address], [address], [place] [address], Ph. History of Present Illness Hypertension Reported By: Patient HPI: Severity: mild. Onset/Timing : gradual onset. Alleviating Factors: relieved with rest, medication. Self Care: not under emotional stress, blood pressure goal: 130/80. Associated Symptoms: no shortness of breath, no fatigue, no decline in exercise capacity Abdominal Pain Reported By: Patient Abdominal Pain: Location: LLQ. Quality: pain , dull. Severity: mild. Onset/Timing: wax/wane. Context: ; No recent travel, antibiotics or sick contacts. Modifying Factors: nothing gives relief. Associated Symptoms: no fe collins, no chills, no blood in the urine, no nausea, no vomiting, no change in stool, normal appetite, no weight gain, no weight loss, constipation Review of Systems:ROS as noted in the HPI Review of Systems Comprehensive General Adult ROS Reported By: Patient Constitutional: Constitutional: no significa nt weight gain, no significant weight loss Cardiovascular: Cardiovascular: no chest young n, no shortness of breath when walking Respiratory: Respiratory: no cough, no wh eezing, no shortness of breath Gastrointestinal: Gastrointestinal: abdominal pain, constipation Musculoskeletal: Musculoskeletal: arthralgias /joint pain Endocrine: Endocrine: no fatigue Physical Exam General Adult Exam (male), B rief Abdominal Pain Exam, Cardiology Exam Reported By: Patient Constitutional: General Appearance: healthy- appearing, well-nourished, well- developed, alert, oriented, appears stated age. Level of Distress: NAD Lungs: Auscultation: good air movem ent, CTA except as noted, no wheezing, no rales/crackles, no rhonchi. Lungs: clear to auscultation bilaterally Cardiovascular: Heart Auscultation: RRR, nor mal S1, normal S2, no murmurs, no rubs, no gallops, no click, physiologically split S2. Pulses including femoral / pedal: full and equal in all extremities except if noted. Systolic Murmur: not heard. Diastolic Murmur: not heard Abdomen: Inspection and Palpation: so ft, non-distended, no tenderness, no rebound tenderness, bowel sounds 4 quadrants Musculoskeletal:: Joints, Bones, and Muscles: no malalignment, tenderness. Extremities: no cyanosis, no edema, no peripheral signs of emboli Skin: Inspection and palpation: wa rm and dry Back: Thoracolumbar Appearance: no chest wall tenderness
== END 2020-05-24 12:00 | disposition home or self-care (01) ==
LOC: CATH LAB 13:40 → MED/SURG3 22:20
PROVIDERS: ADMIT Internal Medicine Interventional Cardiology; ATTEND Internal Medicine Interventional Cardiology
DX: I25.110 Atherosclerotic heart disease of native coronary artery with unstable angina pectoris (principal); I73.9 Peripheral vascular disease, unspecified; I65.29 Occlusion and stenosis of unspecified carotid artery; Z11.59 Encounter for screening for other viral diseases
CPT/HCPCS: 36415; 80053; 85025; 87635; 92928; 93458; 94640 ×2; C1725 ×2; C1769 ×2; C1874; C1887; G0378 ×2; J0360; J0583; J1650; J2001; J2250; J2270 ×2; J2930; J3010; J7030; J7512; 93455; 99152; U0002